=== PATIENT | female | born 1955 | race African-American/Black ===

== ENCOUNTER → 2018-09-24 | Day surgery (SDC) | payer OTHER, MEDICARE ==
[2018-09-23 17:50] VITALS: BMI 16.1
[2018-09-24 12:03] LABS: HEMATOCRIT 34.2 % (32.4-45.2); HEMOGLOBIN 10.6 GM/dL (10.7-15.3); MCH 25.1 pg (25.7-33.7); MEAN CELL VOLUME 80.7 fl (80-96); RBC 4.24 M/mm3 (3.60-5.2); WHITE BLOOD COUNT 4.6 K/mm3 (4.0-10.0)
[2018-09-24 12:04] LABS: BASO % 1.1 % (0-2.0); EOS % 2.6 % (0-4.5); LYMPH % 27.8 % (8-40); MCHC 31.1 g/dl (32.0-36.0); MEAN PLT VOLUME 7.9 fl (7.5-11.1); MONO % 13.2 % (3.8-10.2); NEUT % 55.3 % (42.8-82.8); PLATELET COUNT 326 K/MM3 (134-434); RDW 17.7 % (11.6-15.6)
[2018-09-24 12:15] LABS: INR 1.12 (0.83-1.09); PROTHROMBIN TIME (PATIENT) 13.2 SEC (9.7-13.0)
== END | disposition home or self-care (01) ==
LOC: JRADIR 11:13
PROVIDERS: ATTEND Urology
PROC: 3E013GC Introduction of Other Therapeutic Substance into Subcutaneous Tissue, Percutaneous Approach (ICD-10-PCS; principal; 2018-09-24)
DX: Z53.8 Procedure and treatment not carried out for other reasons (principal)
CPT/HCPCS: 36415; 85025; 85610

== ENCOUNTER 2019-01-03 09:10 | Day surgery (SDC) | payer OTHER, MEDICARE ==
[2019-01-02 12:22] VITALS: BMI 22.7
[2019-01-03 09:57] LABS: HEMATOCRIT 33.6 % (32.4-45.2); HEMOGLOBIN 10.9 GM/dL (10.7-15.3); MCH 26.7 pg (25.7-33.7); MCHC 32.5 g/dl (32.0-36.0); MEAN CELL VOLUME 81.9 fl (80-96); PLATELET COUNT 357 K/MM3 (134-434); RDW 18.2 % (11.6-15.6); WHITE BLOOD COUNT 4.5 K/mm3 (4.0-10.0)
[2019-01-03 10:18] LABS: INR 1.05 (0.83-1.09); PROTHROMBIN TIME (PATIENT) 12.4 SEC (9.7-13.0)
[2019-01-03 10:21] LABS: ACTIVATED PTT 33.4 SECONDS (25.2-36.5)
[2019-01-03 10:49] VITALS: TEMP 98.3
[2019-01-03 10:50] LABS: ALBUMIN 2.8 g/dl (3.4-5.0); ALK PHOS 93 U/L (45-117); ANION GAP 8 MMOL/L (8-16); BILIRUBIN,TOTAL 0.3 mg/dL (0.2-1); BLOOD UREA NITROGEN 11 mg/dL (7-18); CALCIUM 9.3 mg/dL (8.5-10.1); CHLORIDE 109 mmol/L (98-107); CO2 23 mmol/L (21-32); CREATININE 0.4 mg/dL (0.55-1.3); GLUCOSE,RANDOM 87 mg/dL (74-106); POTASSIUM 3.8 mmol/L (3.5-5.1); SGOT/AST 15 U/L (15-37); SGPT/ALT 12 U/L (13-61); SODIUM 141 mmol/L (136-145); TOT PROT 8.3 g/dl (6.4-8.2)
[2019-01-03 16:31] VITALS: BP 126/83; PULSE 100
== END 2019-01-03 16:30 | disposition home or self-care (01) ==
LOC: JRADIR 09:10
PROVIDERS: ATTEND Urology
PROC: 0T9430Z Drainage of Left Kidney Pelvis with Drainage Device, Percutaneous Approach (ICD-10-PCS; principal; 2019-01-03)
DX: N13.30 Unspecified hydronephrosis (principal)
CPT/HCPCS: 36415; 50432; 76000-TC-FY; 76098-TC-FY; 76998-TC; 80053; 85027; 85610; 85730; 87070; 87075; 87076; 87186; 87205; 87899; A4358; C1729; C1769

== ENCOUNTER 2019-06-09 17:33 | Inpatient (IN) | payer OTHER, MEDICARE ==
[2019-06-09] MEDS ORDERED: SODIUM CHLORIDE 0.9% 1000 ML INFUS.BAG IV ONE (19:44)
--- NOTE | 2019-06-09 19:54 | PDOC ---
History of Present Illness - General Chief Complaint: Pain Stated Complaint: ABDOMINAL PAIN Time Seen by Provider: 06/09/19 19:38 History Source: Patient Exam Limitations: No Limitations - History of Present Illness Initial Comments: 06/09/19 19:48 63F with a PMH of MS, suprapubic catheter, and nephrostomy tube placement (2018) who presents to the ER with abdominal pain and leakage from nephrostomy tube site. The patient is with her daughter who helps provide the history. The daughter states that the patient has had abdominal pain since yesterday around her suprapubic catheter. She has also had drainage around her nephrostomy tube which was dislodged yesterday and the drainage started yesterday and "is flowing ". She denies fever, chills, nausea, vomiting, CP, SOB. Past History - Past Medical History Allergies/Adverse Reactions: Allergies Allergy/AdvReac Type Severity Reaction Status Date / Time No Known Allergies Allergy Unverified 06/09/19 19:50 Home Medications: Ambulatory Orders Baclofen 20 mg PO DAILY tablet 09/15/14 Divalproex [Depakote -] 500 mg PO DAILY 09/23/18 Lisinopril [Zestril] 2.5 mg PO DAILY 09/23/18 COPD: No HTN: Yes Seizures: Yes (LAST- LONG AGO) - Surgical History Cardiac Surgery: Yes (cardiac stents) Orthopedic Surgery: Yes (SHOULDER SX) - Suicide/Smoking/Psychosocial Hx Smoking History: Never smoked Have you smoked in the past 12 months: No Information on smoking cessation initiated: No Hx Alcohol Use: No Drug/Substance Use Hx: No Substance Use Type: None Review of Systems - Review of Systems Able to Perform ROS?: Yes Comments:: 06/09/19 19:54 GENERAL/CONSTITUTIONAL: No fever or chills. No weakness. HEAD, EYES, EARS, NOSE AND THROAT: No change in vision. No ear pain or discharge. No sore throat. CARDIOVASCULAR: No chest pain, palpitations, or lightheadedness. RESPIRATORY: No cough, wheezing, shortness of breath, or hemoptysis. GASTROINTESTINAL: No abdominal pain, nausea, vomiting, diarrhea, or constipation. GENITOURINARY: + for pain around suprapubic cath and drainage from nephrostomy tube. MUSCULOSKELETAL: No joint or muscle swelling or pain. No neck or back pain. SKIN: No rash or lesions. NEUROLOGIC: No headache, numbness, tingling, focal weakness, loss of consciousness, or change in strength/sensation. Is the patient limited Maltese proficient: No *Physical Exam - Vital Signs Last Vital Signs Temp Pulse Resp BP Pulse Ox 98.5 F 111 H 18 97/72 98 06/09/19 19:35 06/09/19 19:35 06/09/19 19:35 06/09/19 19:35 06/09/19 19:35 - Physical Exam Comments: 06/09/19 19:54 GENERAL: Well developed, well nourished. Awake and alert. No acute distress. HEENT: Normocephalic, atraumatic. Hearing grossly normal. Dry mucous membranes. PERRLA, EOMI. No conjunctival pallor. Sclera are non-icteric. NECK: Supple. Full ROM. No JVD. Carotid pulses 2+ and symmetric, without bruits. No thyromegaly. No lymphadenopathy. CARDIOVASCULAR: Regular rate and rhythm. No murmurs, rubs, or gallops. PULMONARY: No evidence of respiratory distress. Lungs clear to auscultation bilaterally. No wheezing, rales or rhonchi. ABDOMINAL: Soft. Non-tender. Non-distended. No rebound or guarding. No organomegaly. Normoactive bowel sounds. GENITOURINARY: Draining pus from site of L nephrostomy tube. Suprapubic catheter coming out of urethra. MUSCULOSKELETAL: Contracted diffusely. EXTREMITIES: No cyanosis. No clubbing. No edema. No calf tenderness or swelling. SKIN: Warm and dry. Normal capillary refill. No rashes. No jaundice. NEUROLOGICAL: Alert, awake, appropriate. Cranial nerves 2-12 intact. Normal speech. Gait is normal without ataxia. PSYCHIATRIC: Cooperative. Good eye contact. Appropriate mood and affect. ED Treatment Course - LABORATORY CBC & Chemistry Diagram: 06/09/19 21:25 06/09/19 19:38 - RADIOLOGY Radiology Studies Ordered: Category Date Time Status ABDOMEN & PELVIS CT W/O CONTR [CT] Stat CT Scan 06/09/19 19:44 Ordered Medical Decision Making - Medical Decision Making 06/09/19 21:37 63F with a PMH of MS, suprapubic cath, and L nephrostomy tube presents with draining pus from site of L nephrostomy tube. D/w Dr. Eller, pt's urologist, who agrees with correcting the suprapubic catheter and admission for abx. Purulent and malodorous pus noted draining from L nephrostomy tube site. Cultures sent. Septic workup in progress. Giving fluids and broad spectrum abx. 06/09/19 23:33 WBC 19. CBC otherwise WNL for patient. CMP shows BUN of 60. Pt getting hydration IV and abx. Pt endorsed to Dr. Frias for admission. *DC/Admit/Observation/Transfer Diagnosis at time of Disposition: Nephrostomy tube displaced Suprapubic catheter dysfunction Qualifiers: Encounter type: initial encounter Qualified Code(s): T83.010A - Breakdown ( mechanical) of cystostomy catheter, initial encounter - Discharge Dispostion Condition at time of disposition: Guarded Decision to Admit order: Yes - Referrals Referrals: Rudolph Eller MD [Primary Care Provider] - - Patient Instructions - Post Discharge Activity
[2019-06-09] MEDS ORDERED: PIPERACILLIN/TAZOB 4.5 GM 4.5 GM in DEXTROSE 5%-WATER 100 ML IVPB ONE (21:39)
[2019-06-09] MEDS ORDERED: VANCOMYCIN 1,000 MG in DEXTROSE 5%-WATER - 250 ML IVPB ONE (21:39)
[2019-06-09] MEDS ORDERED: PIPERACILLIN/TAZOB 4.5 GM 4.5 GM/100 ML BAG IVPB ONE (21:44)
[2019-06-09] MEDS ORDERED: VANCOMYCIN 1 GRAM (PRE-DOCKED) 1,000 MG/250 ML BAG IVPB ONE (21:45)
[2019-06-09 21:58] LABS: BASO % 0.4 % (0-2.0); HEMOGLOBIN 9.5 GM/dL (10.7-15.3); LYMPH % 1.8 % (8-40); MCH 22.4 pg (25.7-33.7); MCHC 31.6 g/dl (32.0-36.0); MEAN CELL VOLUME 70.7 fl (80-96); MEAN PLT VOLUME 8.2 fl (7.5-11.1); MONO % 11.8 % (3.8-10.2); PLATELET COUNT 529 K/MM3 (134-434); RBC 4.24 M/mm3 (3.60-5.2); VENOUS PC02 28.7 mmHg (41-51); VENOUS PH 7.41 (7.31-7.41); VENOUS PO2 43.5 mmHg (30-40)
[2019-06-09] MEDS ORDERED: ACETAMINOPHEN 1000 MG/100 ML VIAL (NON FORMULARY) IVPB ONE (21:58)
[2019-06-09] MEDS ORDERED: ACETAMINOPHEN INJECTION 100 ML IVPB ONE (22:01)
[2019-06-09 22:14] LABS: ALK PHOS 139 U/L (45-117); ANION GAP 17 MMOL/L (8-16); BILIRUBIN,TOTAL 0.8 mg/dL (0.2-1); BLOOD UREA NITROGEN 61.7 mg/dL (7-18); CALCIUM 8.6 mg/dL (8.5-10.1); CHLORIDE 101 mmol/L (98-107); CO2 19 mmol/L (21-32); CREATININE 0.9 mg/dL (0.55-1.3); GLUCOSE,RANDOM 88 mg/dL (74-106); POTASSIUM 3.6 mmol/L (3.5-5.1); SGOT/AST 8 U/L (15-37); SGPT/ALT 7 U/L (13-61); SODIUM 136 mmol/L (136-145); TOT PROT 7.4 g/dl (6.4-8.2)
--- NOTE | 2019-06-09 22:23 | PDOC ---
Documentation entered by Ashish Albarado SCRIBE, acting as scribe for Earline Roman MD. Earline Roman MD: This documentation has been prepared by the Verena marshall Xhesika, SCRIBE, under my direction and personally reviewed by me in its entirety. I confirm that the documentation accurately reflects all work, treatment, procedures, and medical decision making performed by me. Attending Attestation - Resident Resident Name: Herbie Simms - HPI HPI: 06/09/19 20:24 The patient is a 63 year old female with a significant medical history of HTN, MS, suprapubic catheter, and nephrostomy tube placement (12/2018) who present to the ED with 1 day of abdominal pain associated with leakage from L nephrostomy tube site. As per daughter, the patients nephrostomy tube came out yesterday and is draining around the area. The patient is nonverbal. The patient denies chest pain, shortness of breath, headache and dizziness. Denies fever, chills, nausea, vomit, diarrhea and constipation. Denies dysuria, frequency, urgency and hematuria. Allergies: NKA Past surgical history: cardiac stents, Shoulder surgery PCP: Rudolph Bhatt - Physicial Exam PE: 06/09/19 20:33 GENERAL: Cachetic, frail appearing 63 yo female (+) nonverbal HEAD: No signs of trauma EYES: PERRLA, EOMI, sclera anicteric, conjunctiva clear ENT: ++ ry mucus membranes NECK: pt 's head is chronically turned towards her left side LUNGS: Breath sounds equal, clear to auscultation bilaterally. No wheezes, and no crackles HEART: Regular rate and rhythm, normal S1 and S2, no murmurs, rubs or gallops ABDOMEN: (+) suprapubic catheter has purulence (+) balloon suprapubic catheter is extruding from her urethra. (+) L flank nephrostomy opening with yellow, foul smelling pus. Flat abdomen. Soft, nontender, normoactive bowel sounds. No guarding, no rebound. No masses Normal Rectal tone (+) vaginal vault intact. EXTREMITIES: (+) legs contracted and right arm contracted NEUROLOGICAL: alert but nonverbal and nonambulatory SKIN: Warm, Dry 06/09/19 22:19 - Medical Decision Making 06/09/19 20:46 case discussed with the patient's urologist, Dr. Jonathan Eller and the plan is to admit the patient, give IV antibiotics. The nephrostomy tube replaced by interventional radiologist tomorrow. The patient suprapubic catheter will be deflated and pulled back into the bladder and then reinflated Patient will be admitted to [facility] impression : 63-year-old female with advanced multiple sclerosis who is nonverbal and nonambulatory presents with purulence coming from her nephrostomy site and a displaced suprapubic catheter. sepsis workup was initiated and IV antibiotics given 06/09/19 22:23 pt to be admitted to [facility]/surg
[2019-06-09 22:26] LABS: INR 1.39 (0.83-1.09); PROTHROMBIN TIME (PATIENT) 16.4 SEC (9.7-13.0)
[2019-06-09 23:40] LABS: ANISOCYTOSIS 1+
[2019-06-10] MEDS ORDERED: VANCOMYCIN 1 GRAM (PRE-DOCKED) 1,000 MG/250 ML BAG IVPB SCH (03:00)
[2019-06-10] MEDS: DEXTROSE 5%-0.45% SALINE 1,000 ML IV SCH ×2 (03:22→07:01)
[2019-06-10 03:30] LABS: ACTIVATED PTT 29.8 SECONDS (25.2-36.5)
[2019-06-10 03:37] LABS: INR 1.41 (0.83-1.09); PROTHROMBIN TIME (PATIENT) 16.7 SEC (9.7-13.0)
[2019-06-10 06:34] LABS: PLATELET ESTIMATE ADEQUATE
[2019-06-10 07:50] LABS: HEMATOCRIT 27.4 % (32.4-45.2); HEMOGLOBIN 8.5 GM/dL (10.7-15.3); MCH 22.1 pg (25.7-33.7); MEAN CELL VOLUME 71.2 fl (80-96); MEAN PLT VOLUME 7.9 fl (7.5-11.1); RBC 3.84 M/mm3 (3.60-5.2); WHITE BLOOD COUNT 19.2 K/mm3 (4.0-10.0)
[2019-06-10 08:42] LABS: ALBUMIN 1.9 g/dl (3.4-5.0); ALK PHOS 113 U/L (45-117); ANION GAP 12 MMOL/L (8-16); BILIRUBIN,TOTAL 0.6 mg/dL (0.2-1); BLOOD UREA NITROGEN 56.3 mg/dL (7-18); CALCIUM 8.2 mg/dL (8.5-10.1); CHLORIDE 103 mmol/L (98-107); CO2 18 mmol/L (21-32); GLUCOSE,RANDOM 191 mg/dL (74-106); SGOT/AST 5 U/L (15-37); SGPT/ALT < 6 U/L (13-61); SODIUM 133 mmol/L (136-145); TOT PROT 6.4 g/dl (6.4-8.2)
[2019-06-10 08:43] LABS: CREATININE 0.8 mg/dL (0.55-1.3)
[2019-06-10 08:59] LABS: POTASSIUM 2.9 mmol/L (3.5-5.1)
[2019-06-10 09:16] LABS: PLATELET COUNT 443 K/MM3 (134-434)
[2019-06-10] MEDS ORDERED: PIPERACILLIN/TAZOB 3.375 GM 3.375 GM in DEXTROSE 5%-WATER - 50 ML IVPB SCH (10:00)
--- NOTE | 2019-06-10 10:49 | CONSULT ---
Consult Consult Specialty:: UROLOGY Reason for Consultation:: Displaced left nephrostomy and SPC tube. - History of Present Illness Chief Complaint: 63 Y/O Female patient with history of neurogenic bladder and left proximal ureteric stone , her left nephrostomy tube inserted 12/2018 fall off 2days ago. SPC was not draining well. O/E displaced SPC and replaced with [address] scan left proximal ureteric stone 2 cm with hydronephrosis. - Alcohol/Substance Use Hx Alcohol Use: No - Smoking History Smoking history: Never smoked Have you smoked in the past 12 months: No Home Medications - Allergies Allergies/Adverse Reactions: Allergies Allergy/AdvReac Type Severity Reaction Status Date / Time No Known Allergies Allergy Unverified 06/09/19 19:50 - Home Medications Home Medications: Ambulatory Orders Baclofen 20 mg PO DAILY tablet 09/15/14 Divalproex [Depakote -] 500 mg PO DAILY 09/23/18 Lisinopril [Zestril] 2.5 mg PO DAILY 09/23/18 Physical Exam Vital Signs: Vital Signs Temperature 97.5 F L 06/10/19 04:20 Pulse Rate 96 H 06/10/19 04:20 Respiratory Rate 18 06/10/19 04:20 Blood Pressure 109/71 06/10/19 04:20 O2 Sat by Pulse Oximetry (%) 98 06/10/19 07:00 Labs: CBC, BMP 06/10/19 06:20 06/10/19 06:20 Assessment/Plan NB on SPC Left hydronephrosis and proximal ureteric stone. SPC replaced today. Plan: Dr Yadav for Left nephrostomy tube insertion.
[2019-06-10 11:58] LABS: ANISOCYTOSIS 2+; MACROCYTOSIS 0; PLATELET ESTIMATE NORMAL; TARGET CELLS 1+; TEAR DROP CELLS 1+
[2019-06-10] MEDS ORDERED: PT OWN MED DRAWER 7, Y5N ONE (12:11)
[2019-06-10] MEDS ORDERED: PIPERACILLIN/TAZOBACTAM 3.375 GM VIAL IVPB ONE ×2 (12:11→17:39)
[2019-06-10] MEDS ORDERED: DEXTROSE 5%-WATER - 50 ML IVPB ONE ×2 (12:12→17:39)
[2019-06-10] MEDS: BACLOFEN 10 MG TABLET (FP) PO SCH (12:16)
[2019-06-10] MEDS: DIVALPROEX SODIUM 500 MG TABLET E.C. PO SCH (12:16)
[2019-06-10] MEDS: LISINOPRIL 5 MG TABLET (FP) PO SCH (12:17)
[2019-06-10] MEDS: HEPARIN NA (PORCINE) 5,000 UNITS/ML 1ML VIAL SQ SCH ×2 (12:20→22:03)
[2019-06-10] MEDS: KCL 10 MEQ IVPB 10 MEQ/100 ML INFUS.BAG IVPB SCH ×4 (12:38→15:13)
--- NOTE | 2019-06-10 12:56 | CON.ID ---
Consult Consult Specialty:: infectious diseases Referred by:: Reason for Consultation:: bacteremia, - History of Present Illness Chief Complaint: weakness,leakage fron nephrostomy tube History of Present Illness: 63 year old female with a significant medical history of HTN, MS, suprapubic catheter, and nephrostomy tube placement (12/2018) admitted with 1 day of abdominal pain associated with leakage from L nephrostomy tube site. As per daughter, the patients nephrostomy tube came out yesterday and is draining around the area. The patient is nonverbal. history of neurogenic bladder and left proximal ureteric stone , her left nephrostomy tube inserted 12/2018 fall off 2days ago. SPC was not draining well. O/E displaced SPC and replaced with [address] scan left proximal ureteric stone 2 cm with hydronephrosis. The patient denies chest pain, shortness of breath, headache and dizziness. Denies fever, chills, nausea, vomit, diarrhea and constipation. Denies dysuria, frequency, urgency and hematuria. currently patient is stable - History Source History Provided By: Medical Record Limitations to Obtaining History: Clinical Condition - Alcohol/Substance Use Hx Alcohol Use: No - Smoking History Smoking history: Never smoked Have you smoked in the past 12 months: No Home Medications - Allergies Allergies/Adverse Reactions: Allergies Allergy/AdvReac Type Severity Reaction Status Date / Time No Known Allergies Allergy Unverified 06/09/19 19:50 - Home Medications Home Medications: Ambulatory Orders Baclofen 20 mg PO DAILY tablet 09/15/14 Divalproex [Depakote -] 500 mg PO DAILY 09/23/18 Lisinopril [Zestril] 2.5 mg PO DAILY 09/23/18 Review of Systems - Review of Systems Constitutional: reports: No Symptoms Neck: reports: No Symptoms Cardiovascular: reports: No Symptoms Respiratory: reports: No Symptoms Gastrointestinal: reports: Abdominal Pain Genitourinary: reports: Other Musculoskeletal: reports: No Symptoms Integumentary: reports: No Symptoms Neurological: reports: No Symptoms Endocrine: reports: No Symptoms Hematology/Lymphatic: reports: No Symptoms Psychiatric: reports: No Symptoms Physical Exam Vital Signs: Vital Signs Temperature 97.5 F L 06/10/19 04:20 Pulse Rate 96 H 06/10/19 04:20 Respiratory Rate 18 06/10/19 04:20 Blood Pressure 109/71 06/10/19 04:20 O2 Sat by Pulse Oximetry (%) 98 06/10/19 07:00 Constitutional: Yes: No Distress, Calm Cardiovascular: Yes: Regular Rate and Rhythm Respiratory: Yes: Regular, CTA Bilaterally Gastrointestinal: Yes: Normal Bowel Sounds, Soft Musculoskeletal: Yes: WNL Extremities: Yes: Other Neurological: Yes: Alert, Other Labs: CBC, BMP 06/10/19 06:20 06/10/19 06:20 Imaging - Results Chest X-ray: Report Reviewed, Image Reviewed Assessment/Plan 63-year-old female with advanced multiple sclerosis who is nonverbal and nonambulatory presents with purulence coming from her nephrostomy site and a displaced suprapubic catheter. uti weakness plan will start on zosyn nutrition rest as per team
--- NOTE | 2019-06-10 14:42 | EKG ---
Test Reason : Blood Pressure : / mmHG Vent. Rate : 108 BPM Atrial Rate : 108 BPM P-R Int : 136 ms QRS Dur : 072 ms QT Int : 402 ms P-R-T Axes : 073 061 074 degrees QTc Int : 538 ms SINUS TACHYCARDIA POSSIBLE LEFT ATRIAL ENLARGEMENT CANNOT RULE OUT INFERIOR INFARCT , AGE UNDETERMINED PROLONGED QT ABNORMAL ECG NO PREVIOUS ECGS AVAILABLE Confirmed by Kristopher Menjivar MD ([id number]) on 06/10/2019 2:42:19 PM Referred By: Confirmed By:Kristopher Menjivar MD
--- NOTE | 2019-06-10 17:02 | HP ---
Admitting History and Physical - Admission History of Present Illness: Pt is a 63 y/o female with a PMH of MS, suprapubic catheter, and nephrostomy tube placement (12/2018) who presents to the ER with abdominal pain and leakage from nephrostomy tube site. The patient is with her daughter who helps provide the history. The daughter states that the patient has had abdominal pain since yesterday around her suprapubic catheter. She has also had drainage around her nephrostomy tube which was dislodged yesterday and the drainage started yesterday and "is flowing". She denies fever, chills, nausea, vomiting, CP, SOB. - Past Medical History CARD CHECKER: Yes: Multiple Sclerosis - Advance Directives Advance Directives: Yes: Health Care Proxy - Smoking History Smoking history: Never smoked Have you smoked in the past 12 months: No - Alcohol/Substance Use Hx Alcohol Use: No Home Medications - Allergies Allergies/Adverse Reactions: Allergies Allergy/AdvReac Type Severity Reaction Status Date / Time No Known Allergies Allergy Unverified 06/09/19 19:50 - Home Medications Home Medications: Ambulatory Orders Baclofen 20 mg PO DAILY tablet 09/15/14 Divalproex [Depakote -] 500 mg PO DAILY 09/23/18 Lisinopril [Zestril] 2.5 mg PO DAILY 09/23/18 Family Disease History - Family Disease History Family History: Unremarkable Review of Systems - Review of Systems Constitutional: reports: Weakness Eyes: reports: No Symptoms HENT: reports: No Symptoms Neck: reports: No Symptoms Cardiovascular: reports: No Symptoms Respiratory: reports: No Symptoms Gastrointestinal: reports: No Symptoms Physical Examination Vital Signs: Vital Signs Temperature 98.3 F 06/10/19 08:55 Pulse Rate 96 H 06/10/19 16:55 Respiratory Rate 15 06/10/19 16:55 Blood Pressure 123/75 06/10/19 16:55 O2 Sat by Pulse Oximetry (%) 100 06/10/19 16:55 Constitutional: Yes: Thin Eyes: Yes: WNL, Conjunctiva Clear HENT: Yes: WNL Neck: Yes: WNL, Supple Cardiovascular: Yes: WNL, Regular Rate and Rhythm Respiratory: Yes: WNL, Regular, CTA Bilaterally Gastrointestinal: Yes: WNL, Normal Bowel Sounds, Soft Renal/: Yes: Other ((+) SPC/Lt nephrostomy tube) Edema: No Neurological: Yes: WNL, Alert, Oriented Labs: CBC, BMP 06/10/19 06:20 06/10/19 06:20 Problem List - Problems (1) Sepsis Assessment/Plan: Cont IV antibxs Monitor BC/urine cuoltures IVF ID consult Code(s): A41.9 - SEPSIS, UNSPECIFIED ORGANISM (2) Multiple sclerosis Code(s): G35 - MULTIPLE SCLEROSIS (3) Nephrostomy tube displaced Assessment/Plan: Uro consult/IR consults Code(s): T83.022A - DISPLACEMENT OF NEPHROSTOMY CATHETER, INITIAL ENCOUNTER (4) Neurogenic bladder Code(s): N31.9 - NEUROMUSCULAR DYSFUNCTION OF BLADDER, UNSPECIFIED (5) Seizure Assessment/Plan: Cont depakote Code(s): R56.9 - UNSPECIFIED CONVULSIONS (6) Suprapubic catheter dysfunction Code(s): T83.010A - BREAKDOWN (MECHANICAL) OF CYSTOSTOMY CATHETER, INIT ENCNTR Qualifiers: Encounter type: initial encounter Qualified Code(s): T83.010A - Breakdown ( mechanical) of cystostomy catheter, initial encounter
[2019-06-10] MEDS: PIPERACILLIN/TAZOB 3.375 GM 3.375 GM in DEXTROSE 5%-WATER - 50 ML IVPB SCH (18:17)
[2019-06-11] MEDS ORDERED: PIPERACILLIN/TAZOBACTAM 3.375 GM VIAL IVPB ONE ×3 (01:34→17:40)
[2019-06-11] MEDS ORDERED: DEXTROSE 5%-WATER - 50 ML IVPB ONE ×3 (01:35→17:40)
[2019-06-11] MEDS: PIPERACILLIN/TAZOB 3.375 GM 3.375 GM in DEXTROSE 5%-WATER - 50 ML IVPB SCH ×3 (01:45→17:44)
[2019-06-11] MEDS: DEXTROSE 5%-0.45% SALINE 1,000 ML IV SCH (07:19)
[2019-06-11] MEDS: BACLOFEN 10 MG TABLET (FP) PO SCH (10:04)
[2019-06-11] MEDS: HEPARIN NA (PORCINE) 5,000 UNITS/ML 1ML VIAL SQ SCH ×2 (10:04→21:00)
[2019-06-11] MEDS: DIVALPROEX SODIUM 500 MG TABLET E.C. PO SCH (10:04)
[2019-06-11] MEDS: LISINOPRIL 5 MG TABLET (FP) PO SCH (10:04)
--- NOTE | 2019-06-11 12:37 | PN ---
Progress Note, Physician History of Present Illness: stable no new issues - Current Medication List Current Medications: Active Medications Baclofen (Lioresal -) 20 mg PO DAILY [facility] Last Admin: 06/11/19 10:04 Dose: 20 mg Divalproex Sodium (Depakote -) 500 mg PO DAILY [facility] Last Admin: 06/11/19 10:04 Dose: 500 mg Heparin Sodium (Porcine) (Heparin -) 5,000 unit SQ BID [facility] Last Admin: 06/11/19 10:04 Dose: 5,000 unit Dextrose/Sodium Chloride (D5-1/2ns -) 1,000 mls @ 75 mls/hr IV ASDIR [facility] Last Admin: 06/11/19 07:19 Dose: 75 mls/hr Piperacillin Sod/Tazobactam (Sod 3.375 gm/ Dextrose) 50 mls @ 100 mls/hr IVPB Q8H-IV [facility]; Protocol Last Admin: 06/11/19 10:03 Dose: 100 mls/hr Lisinopril (Prinivil) 2.5 mg PO DAILY [facility] Last Admin: 06/11/19 10:04 Dose: 2.5 mg - Objective Vital Signs: Vital Signs Temperature 98 F 06/11/19 04:26 Pulse Rate 68 06/11/19 04:26 Respiratory Rate 18 06/11/19 04:26 Blood Pressure 90/59 L 06/11/19 04:26 O2 Sat by Pulse Oximetry (%) 97 06/10/19 21:00 Constitutional: Yes: No Distress, Calm Cardiovascular: Yes: S1, S2 Respiratory: Yes: Regular, CTA Bilaterally Musculoskeletal: Yes: WNL Extremities: Yes: Other Neurological: Yes: Alert, Oriented Psychiatric: Yes: Alert, Oriented Labs: CBC, BMP 06/10/19 06:20 06/10/19 06:20 INR, PTT INR 1.41 (0.83-1.09) H 06/10/19 02:45 Assessment/Plan 63-year-old female with advanced multiple sclerosis who is nonverbal and nonambulatory presents with purulence coming from her nephrostomy site and a displaced suprapubic catheter. uti weakness plan abx nutrition
[2019-06-11 13:09] LABS: BASO % 0.2 % (0-2.0); EOS % 0.2 % (0-4.5); HEMATOCRIT 24.5 % (32.4-45.2); HEMOGLOBIN 7.5 GM/dL (10.7-15.3); LYMPH % 12.9 % (8-40); MCH 21.6 pg (25.7-33.7); MCHC 30.5 g/dl (32.0-36.0); MEAN CELL VOLUME 70.9 fl (80-96); MEAN PLT VOLUME 7.7 fl (7.5-11.1); MONO % 3.2 % (3.8-10.2); NEUT % 83.5 % (42.8-82.8); PLATELET COUNT 423 K/MM3 (134-434); RBC 3.46 M/mm3 (3.60-5.2); RDW 18.8 % (11.6-15.6); WHITE BLOOD COUNT 18.2 K/mm3 (4.0-10.0)
[2019-06-11 13:46] LABS: ALBUMIN 1.6 g/dl (3.4-5.0); ALK PHOS 99 U/L (45-117); ANION GAP 12 MMOL/L (8-16); BILIRUBIN,TOTAL 0.5 mg/dL (0.2-1); BLOOD UREA NITROGEN 34.6 mg/dL (7-18); CALCIUM 7.9 mg/dL (8.5-10.1); CHLORIDE 109 mmol/L (98-107); CO2 18 mmol/L (21-32); CREATININE 0.6 mg/dL (0.55-1.3); GLUCOSE,RANDOM 112 mg/dL (74-106); POTASSIUM 3.2 mmol/L (3.5-5.1); SGOT/AST 8 U/L (15-37); SGPT/ALT < 6 U/L (13-61); SODIUM 139 mmol/L (136-145); TOT PROT 5.8 g/dl (6.4-8.2)
[2019-06-11 14:08] LABS: ANISOCYTOSIS 1+; MACROCYTOSIS 0; PLATELET ESTIMATE NORMAL; ROULEAU 1+
[2019-06-11] MEDS: KCL 10 MEQ IVPB 10 MEQ/100 ML INFUS.BAG IVPB SCH ×3 (20:58→23:06)
--- NOTE | 2019-06-11 23:55 | PN ---
Progress Note, Physician - Current Medication List Current Medications: Active Medications Baclofen (Lioresal -) 20 mg PO DAILY [facility] Last Admin: 06/11/19 10:04 Dose: 20 mg Divalproex Sodium (Depakote -) 500 mg PO DAILY [facility] Last Admin: 06/11/19 10:04 Dose: 500 mg Heparin Sodium (Porcine) (Heparin -) 5,000 unit SQ BID [facility] Last Admin: 06/11/19 21:00 Dose: 5,000 unit Dextrose/Sodium Chloride (D5-1/2ns -) 1,000 mls @ 75 mls/hr IV ASDIR [facility] Last Admin: 06/11/19 07:19 Dose: 75 mls/hr Piperacillin Sod/Tazobactam (Sod 3.375 gm/ Dextrose) 50 mls @ 100 mls/hr IVPB Q8H-IV [facility]; Protocol Last Admin: 06/11/19 17:44 Dose: 100 mls/hr Lisinopril (Prinivil) 2.5 mg PO DAILY [facility] Last Admin: 06/11/19 10:04 Dose: 2.5 mg - Objective Vital Signs: Vital Signs Temperature 97.2 F L 06/11/19 16:30 Pulse Rate 77 06/11/19 16:30 Respiratory Rate 20 06/11/19 16:30 Blood Pressure 96/59 L 06/11/19 16:30 O2 Sat by Pulse Oximetry (%) 96 06/11/19 21:00 Labs: CBC, BMP 06/11/19 12:57 06/11/19 12:57 INR, PTT INR 1.41 (0.83-1.09) H 06/10/19 02:45 Problem List - Problems (1) Sepsis Assessment/Plan: BC(+) and Urine culture(+) for lactose fermenting gnb Cont IV antibxs Replace K+ Code(s): A41.9 - SEPSIS, UNSPECIFIED ORGANISM (2) Nephrostomy tube displaced Assessment/Plan: SPC reinserted As per uro IR to replace Lt nephrostomy tube due to Lt hydronephrosis/ureteric stone Code(s): T83.022A - DISPLACEMENT OF NEPHROSTOMY CATHETER, INITIAL ENCOUNTER (3) Seizure Assessment/Plan: Cont depakote Code(s): R56.9 - UNSPECIFIED CONVULSIONS (4) Multiple sclerosis Code(s): G35 - MULTIPLE SCLEROSIS (5) HTN (hypertension) Assessment/Plan: Hold lisinopril due to hypotension Due to sepsis Cont IVF Code(s): I10 - ESSENTIAL (PRIMARY) HYPERTENSION (6) Neurogenic bladder Code(s): N31.9 - NEUROMUSCULAR DYSFUNCTION OF BLADDER, UNSPECIFIED
[2019-06-12] MEDS ORDERED: PIPERACILLIN/TAZOBACTAM 3.375 GM VIAL IVPB ONE ×3 (00:34→18:15)
[2019-06-12] MEDS ORDERED: DEXTROSE 5%-WATER - 50 ML IVPB ONE ×3 (00:35→18:15)
[2019-06-12] MEDS: PIPERACILLIN/TAZOB 3.375 GM 3.375 GM in DEXTROSE 5%-WATER - 50 ML IVPB SCH ×3 (01:35→18:31)
[2019-06-12] MEDS: DEXTROSE 5%-0.45% SALINE 1,000 ML IV SCH ×2 (01:39→09:16)
[2019-06-12 08:52] LABS: HEMATOCRIT 23.9 % (32.4-45.2); HEMOGLOBIN 7.3 GM/dL (10.7-15.3); MCH 21.9 pg (25.7-33.7); MCHC 30.4 g/dl (32.0-36.0); MEAN CELL VOLUME 72.1 fl (80-96); MEAN PLT VOLUME 7.9 fl (7.5-11.1); PLATELET COUNT 432 K/MM3 (134-434); RBC 3.32 M/mm3 (3.60-5.2); RDW 18.9 % (11.6-15.6); WHITE BLOOD COUNT 12.3 K/mm3 (4.0-10.0)
[2019-06-12 09:20] LABS: ALBUMIN 1.6 g/dl (3.4-5.0); BILIRUBIN,TOTAL 0.5 mg/dL (0.2-1); BLOOD UREA NITROGEN 21.5 mg/dL (7-18); CREATININE 0.4 mg/dL (0.55-1.3); TOT PROT 5.8 g/dl (6.4-8.2)
[2019-06-12 09:55] LABS: ANISOCYTOSIS 2+; MACROCYTOSIS 0; PLATELET ESTIMATE NORMAL; TARGET CELLS 1+
[2019-06-12] MEDS: BACLOFEN 10 MG TABLET (FP) PO SCH (11:26)
[2019-06-12] MEDS: DIVALPROEX SODIUM 500 MG TABLET E.C. PO SCH (11:26)
[2019-06-12] MEDS: HEPARIN NA (PORCINE) 5,000 UNITS/ML 1ML VIAL SQ SCH ×2 (11:26→21:24)
--- NOTE | 2019-06-12 12:50 | PN ---
Progress Note, Physician History of Present Illness: patient says she does not feel very well blood cx results noted - Current Medication List Current Medications: Active Medications Baclofen (Lioresal -) 20 mg PO DAILY [facility] Last Admin: 06/12/19 11:26 Dose: 20 mg Divalproex Sodium (Depakote -) 500 mg PO DAILY [facility] Last Admin: 06/12/19 11:26 Dose: 500 mg Heparin Sodium (Porcine) (Heparin -) 5,000 unit SQ BID [facility] Last Admin: 06/12/19 11:26 Dose: 5,000 unit Dextrose/Sodium Chloride (D5-1/2ns -) 1,000 mls @ 75 mls/hr IV ASDIR [facility] Last Admin: 06/12/19 09:16 Dose: Not Given Piperacillin Sod/Tazobactam (Sod 3.375 gm/ Dextrose) 50 mls @ 100 mls/hr IVPB Q8H-IV [facility]; Protocol Last Admin: 06/12/19 01:35 Dose: 100 mls/hr - Objective Vital Signs: Vital Signs Temperature 98.0 F 06/12/19 05:55 Pulse Rate 87 06/12/19 05:55 Respiratory Rate 20 06/12/19 05:55 Blood Pressure 127/75 06/12/19 05:55 O2 Sat by Pulse Oximetry (%) 96 06/11/19 21:00 Constitutional: Yes: Calm, Mild Distress, Thin Cardiovascular: Yes: S1, S2 Respiratory: Yes: Regular, CTA Bilaterally Gastrointestinal: Yes: Normal Bowel Sounds, Soft Extremities: Yes: Other Neurological: Yes: Alert, Oriented Psychiatric: Yes: Alert, Oriented Labs: CBC, BMP 06/12/19 08:36 06/12/19 08:36 INR, PTT INR 1.41 (0.83-1.09) H 06/10/19 02:45 Assessment/Plan 63-year-old female with advanced multiple sclerosis who is nonverbal and nonambulatory presents with purulence coming from her nephrostomy site and a displaced suprapubic catheter. uti weakness plan abx nutrition will resend blood cx rest as per the team
--- NOTE | 2019-06-12 15:22 | EKG ---
Test Reason : Blood Pressure : / mmHG Vent. Rate : 092 BPM Atrial Rate : 092 BPM P-R Int : 150 ms QRS Dur : 088 ms QT Int : 400 ms P-R-T Axes : 061 048 249 degrees QTc Int : 494 ms NORMAL SINUS RHYTHM INFERIOR-POSTERIOR INFARCT (CITED ON OR BEFORE 09-JUN-2019) T WAVE ABNORMALITY, CONSIDER LATERAL ISCHEMIA ABNORMAL ECG WHEN COMPARED WITH ECG OF 09-JUN-2019 21:43, ST NO LONGER DEPRESSED IN INFERIOR LEADS T WAVE INVERSION NOW EVIDENT IN INFERIOR LEADS T WAVE INVERSION NOW EVIDENT IN ANTEROLATERAL LEADS Confirmed by ANNIKA PELLETIER MD ([id number]) on 06/12/2019 3:22:21 PM Referred By: Confirmed By:ANNIKA PELLETIER MD
[2019-06-12 17:31] VITALS: BMI 12.3
--- NOTE | 2019-06-12 22:39 | PN ---
Progress Note, Physician History of Present Illness: No new complaints - Current Medication List Current Medications: Active Medications Baclofen (Lioresal -) 20 mg PO DAILY [facility] Last Admin: 06/12/19 11:26 Dose: 20 mg Heparin Sodium (Porcine) (Heparin -) 5,000 unit SQ BID [facility] Last Admin: 06/12/19 21:24 Dose: 5,000 unit Dextrose/Sodium Chloride (D5-1/2ns -) 1,000 mls @ 75 mls/hr IV [facility]IR [facility] Last Admin: 06/12/19 09:16 Dose: Not Given Piperacillin Sod/Tazobactam (Sod 3.375 gm/ Dextrose) 50 mls @ 100 mls/hr IVPB Q8H-IV [facility]; Protocol Last Admin: 06/12/19 18:31 Dose: 100 mls/hr Valproate Sodium (Depakene -) 500 mg PO DAILY [facility] - Objective Vital Signs: Vital Signs Temperature 98.3 F 06/12/19 18:48 Pulse Rate 85 06/12/19 19:29 Respiratory Rate 18 06/12/19 19:29 Blood Pressure 94/58 L 06/12/19 19:29 O2 Sat by Pulse Oximetry (%) 96 06/12/19 09:00 Neck: Yes: WNL, Supple Cardiovascular: Yes: WNL, Regular Rate and Rhythm Respiratory: Yes: WNL, Regular, CTA Bilaterally Gastrointestinal: Yes: WNL, Normal Bowel Sounds, Soft, Other ((+) suprapubic cath) Labs: CBC, BMP 06/12/19 08:36 06/12/19 08:36 INR, PTT INR 1.41 (0.83-1.09) H 06/10/19 02:45 Problem List - Problems (1) Sepsis Assessment/Plan: BC(+) and Urine culture(+) for lactose fermenting gnb Cont IV antibxs Replace K+ Repeat Blood cultures Code(s): A41.9 - SEPSIS, UNSPECIFIED ORGANISM (2) Nephrostomy tube displaced Assessment/Plan: SPC reinserted Replace Lt nephrostomy tube due to Lt hydronephrosis/ureteric stone Code(s): T83.022A - DISPLACEMENT OF NEPHROSTOMY CATHETER, INITIAL ENCOUNTER (3) Seizure Assessment/Plan: Cont depakote Code(s): R56.9 - UNSPECIFIED CONVULSIONS (4) Multiple sclerosis Code(s): G35 - MULTIPLE SCLEROSIS (5) HTN (hypertension) Assessment/Plan: Hold lisinopril due to hypotension Due to sepsis Cont IVF Code(s): I10 - ESSENTIAL (PRIMARY) HYPERTENSION (6) Neurogenic bladder Code(s): N31.9 - NEUROMUSCULAR DYSFUNCTION OF BLADDER, UNSPECIFIED
[2019-06-13] MEDS ORDERED: DEXTROSE 5%-WATER - 50 ML IVPB ONE ×3 (01:11→19:32)
[2019-06-13] MEDS ORDERED: PIPERACILLIN/TAZOBACTAM 3.375 GM VIAL IVPB ONE ×3 (01:11→19:31)
[2019-06-13] MEDS: PIPERACILLIN/TAZOB 3.375 GM 3.375 GM in DEXTROSE 5%-WATER - 50 ML IVPB SCH ×3 (01:37→19:35)
[2019-06-13] MEDS ORDERED: PT OWN MED DRAWER 7, Y5N ONE (09:21)
[2019-06-13] MEDS: BACLOFEN 10 MG TABLET (FP) PO SCH (09:58)
[2019-06-13] MEDS: DEXTROSE 5%-0.45% SALINE 1,000 ML IV SCH (10:01)
[2019-06-13] MEDS: VALPROATE SODIUM 250 MG/5 ML UNIT DOSE CUP PO SCH (10:01)
[2019-06-13] MEDS: HEPARIN NA (PORCINE) 5,000 UNITS/ML 1ML VIAL SQ SCH ×2 (10:01→21:31)
[2019-06-13 15:36] LABS: BASO % 0.2 % (0-2.0); EOS % 0.7 % (0-4.5); HEMATOCRIT 25.3 % (32.4-45.2); HEMOGLOBIN 7.9 GM/dL (10.7-15.3); LYMPH % 8.3 % (8-40); MCH 22.3 pg (25.7-33.7); MCHC 31.2 g/dl (32.0-36.0); MEAN CELL VOLUME 71.6 fl (80-96); MEAN PLT VOLUME 7.5 fl (7.5-11.1); MONO % 5.1 % (3.8-10.2); NEUT % 85.7 % (42.8-82.8); PLATELET COUNT 411 K/MM3 (134-434); RBC 3.54 M/mm3 (3.60-5.2); WHITE BLOOD COUNT 9.8 K/mm3 (4.0-10.0)
[2019-06-13 16:03] LABS: ALBUMIN 1.6 g/dl (3.4-5.0); BILIRUBIN,TOTAL 0.4 mg/dL (0.2-1); BLOOD UREA NITROGEN 12.1 mg/dL (7-18); CALCIUM 7.8 mg/dL (8.5-10.1); CREATININE 0.4 mg/dL (0.55-1.3); POTASSIUM 3.8 mmol/L (3.5-5.1); TOT PROT 5.7 g/dl (6.4-8.2)
[2019-06-13 17:04] LABS: ANISOCYTOSIS 2+; MACROCYTOSIS 1+
[2019-06-13 17:05] LABS: PLATELET ESTIMATE NORMAL
--- NOTE | 2019-06-13 17:14 | PN ---
Progress Note, Physician History of Present Illness: Pt seen and examined, events noted. Lab/imaging results reviewed. Pt is alert and verbally responsive. Daughter at bedside states she is at her baseline status. Currently afebrile, without acute distress. - Current Medication List Current Medications: Active Medications Baclofen (Lioresal -) 20 mg PO DAILY [facility] Last Admin: 06/13/19 09:58 Dose: 20 mg Heparin Sodium (Porcine) (Heparin -) 5,000 unit SQ BID [facility] Last Admin: 06/13/19 10:01 Dose: 5,000 unit Dextrose/Sodium Chloride (D5-1/2ns -) 1,000 mls @ 75 mls/hr IV [facility]IR [facility] Last Admin: 06/13/19 10:01 Dose: Not Given Piperacillin Sod/Tazobactam (Sod 3.375 gm/ Dextrose) 50 mls @ 100 mls/hr IVPB Q8H-IV [facility]; Protocol Last Admin: 06/13/19 09:59 Dose: 100 mls/hr Valproate Sodium (Depakene -) 500 mg PO DAILY [facility] Last Admin: 06/13/19 10:01 Dose: 500 mg - Objective Vital Signs: Vital Signs Temperature 97.9 F 06/13/19 16:03 Pulse Rate 93 H 06/13/19 16:03 Respiratory Rate 18 06/13/19 16:03 Blood Pressure 97/62 06/13/19 16:03 O2 Sat by Pulse Oximetry (%) 96 06/12/19 21:00 Constitutional: Yes: No Distress, Calm Cardiovascular: Yes: Regular Rate and Rhythm Respiratory: Yes: Regular Gastrointestinal: Yes: Normal Bowel Sounds, Soft Genitourinary: Yes: Other (+SPC, b/l nephrostomy, no drainage on Lt) Edema: No Neurological: Yes: Alert Labs: CBC, BMP 06/13/19 14:25 06/13/19 14:25 INR, PTT INR 1.41 (0.83-1.09) H 06/10/19 02:45 Microbiology 06/09/19 21:25 Blood - Peripheral Venous Blood Culture - Final Escherichia Coli Brevibacterium Species 06/09/19 21:30 Blood - Peripheral Venous Blood Culture - Final Non Lactose Fermenting Gnb Staph Hominis Sub Sp Hominis 06/09/19 21:25 Body Fluid - Other Gram Stain - Final 06/09/19 21:25 Body Fluid - Other Body Fluid Culture - Preliminary Escherichia Coli Beta Hem Streptococcus Group F 06/09/19 21:25 Body Fluid - Other Anaerobic Culture - Final NO ANAEROBES WERE ISOLATED Problem List - Problems (1) HTN (hypertension) Code(s): I10 - ESSENTIAL (PRIMARY) HYPERTENSION (2) Multiple sclerosis Code(s): G35 - MULTIPLE SCLEROSIS (3) Nephrostomy tube displaced Code(s): T83.022A - DISPLACEMENT OF NEPHROSTOMY CATHETER, INITIAL ENCOUNTER (4) Neurogenic bladder Code(s): N31.9 - NEUROMUSCULAR DYSFUNCTION OF BLADDER, UNSPECIFIED (5) Sepsis Code(s): A41.9 - SEPSIS, UNSPECIFIED ORGANISM Assessment/Plan Complicated UTI/Bacteremia MS Neurogenic bladder with SPC/enrrique nephrostomy HTN -- continue IV antibiotics -- f/u repeat blood culture results -- wbc trended down/ currently afebrile -- f/u
--- NOTE | 2019-06-13 21:46 | PN ---
Progress Note, Physician History of Present Illness: No new complaints - Current Medication List Current Medications: Active Medications Baclofen (Lioresal -) 20 mg PO DAILY [facility] Last Admin: 06/13/19 09:58 Dose: 20 mg Heparin Sodium (Porcine) (Heparin -) 5,000 unit SQ BID [facility] Last Admin: 06/13/19 21:31 Dose: 5,000 unit Dextrose/Sodium Chloride (D5-1/2ns -) 1,000 mls @ 75 mls/hr IV [facility]IR [facility] Last Admin: 06/13/19 10:01 Dose: Not Given Piperacillin Sod/Tazobactam (Sod 3.375 gm/ Dextrose) 50 mls @ 100 mls/hr IVPB Q8H-IV [facility]; Protocol Last Admin: 06/13/19 19:35 Dose: 100 mls/hr Valproate Sodium (Depakene -) 500 mg PO DAILY [facility] Last Admin: 06/13/19 10:01 Dose: 500 mg - Objective Vital Signs: Vital Signs Temperature 97.9 F 06/13/19 16:03 Pulse Rate 93 H 06/13/19 16:03 Respiratory Rate 18 06/13/19 16:03 Blood Pressure 97/62 06/13/19 16:03 O2 Sat by Pulse Oximetry (%) 96 06/13/19 09:00 Constitutional: Yes: Thin Neck: Yes: WNL, Supple Cardiovascular: Yes: WNL, Regular Rate and Rhythm Respiratory: Yes: WNL, Regular, CTA Bilaterally Gastrointestinal: Yes: WNL, Normal Bowel Sounds, Soft Genitourinary: Yes: Other ((+) SPC/Lt nephrostomy tube) Labs: CBC, BMP 06/13/19 14:25 06/13/19 14:25 INR, PTT INR 1.41 (0.83-1.09) H 06/10/19 02:45 Problem List - Problems (1) Sepsis Assessment/Plan: BC(+) Cont IV antibxs Monitor BC Code(s): A41.9 - SEPSIS, UNSPECIFIED ORGANISM (2) Nephrostomy tube displaced Assessment/Plan: SPC reinserted IR for replacement of nephrostomy tube Code(s): T83.022A - DISPLACEMENT OF NEPHROSTOMY CATHETER, INITIAL ENCOUNTER (3) Seizure Assessment/Plan: Cont depakote Code(s): R56.9 - UNSPECIFIED CONVULSIONS (4) Multiple sclerosis Assessment/Plan: Will need placement in STR Code(s): G35 - MULTIPLE SCLEROSIS (5) HTN (hypertension) Assessment/Plan: Hold lisinopril due to hypotension Due to sepsis Cont IVF Code(s): I10 - ESSENTIAL (PRIMARY) HYPERTENSION (6) Neurogenic bladder Assessment/Plan: SPC in place Code(s): N31.9 - NEUROMUSCULAR DYSFUNCTION OF BLADDER, UNSPECIFIED
[2019-06-14] MEDS ORDERED: PIPERACILLIN/TAZOBACTAM 3.375 GM VIAL IVPB ONE ×3 (00:49→17:03)
[2019-06-14] MEDS ORDERED: DEXTROSE 5%-WATER - 50 ML IVPB ONE ×3 (00:49→17:03)
[2019-06-14] MEDS: PIPERACILLIN/TAZOB 3.375 GM 3.375 GM in DEXTROSE 5%-WATER - 50 ML IVPB SCH ×3 (01:17→17:08)
[2019-06-14] MEDS: DEXTROSE 5%-0.45% SALINE 1,000 ML IV SCH ×2 (05:14→21:30)
[2019-06-14] MEDS ORDERED: PT OWN MED DRAWER 7, Y5N ONE (09:43)
[2019-06-14] MEDS: BACLOFEN 10 MG TABLET (FP) PO SCH (09:47)
[2019-06-14] MEDS: VALPROATE SODIUM 250 MG/5 ML UNIT DOSE CUP PO SCH (09:47)
[2019-06-14] MEDS: HEPARIN NA (PORCINE) 5,000 UNITS/ML 1ML VIAL SQ SCH ×2 (09:49→21:28)
--- NOTE | 2019-06-14 16:28 | PN ---
Progress Note, Physician History of Present Illness: Pt is alert and fully responsive. Remains afebrile, without distress, stating she feels well. - Current Medication List Current Medications: Active Medications Baclofen (Lioresal -) 20 mg PO DAILY [facility] Last Admin: 06/14/19 09:47 Dose: 20 mg Heparin Sodium (Porcine) (Heparin -) 5,000 unit SQ BID [facility] Last Admin: 06/14/19 09:49 Dose: 5,000 unit Dextrose/Sodium Chloride (D5-1/2ns -) 1,000 mls @ 75 mls/hr IV [facility]IR [facility] Last Admin: 06/14/19 05:14 Dose: Not Given Piperacillin Sod/Tazobactam (Sod 3.375 gm/ Dextrose) 50 mls @ 100 mls/hr IVPB Q8H-IV [facility]; Protocol Last Admin: 06/14/19 09:47 Dose: 100 mls/hr Valproate Sodium (Depakene -) 500 mg PO DAILY [facility] Last Admin: 06/14/19 09:47 Dose: 500 mg - Objective Vital Signs: Vital Signs Temperature 99 F 06/14/19 15:33 Pulse Rate 106 H 06/14/19 15:33 Respiratory Rate 18 06/14/19 15:33 Blood Pressure 106/54 L 06/14/19 15:33 O2 Sat by Pulse Oximetry (%) 100 06/13/19 21:00 Constitutional: Yes: No Distress, Calm Cardiovascular: Yes: Regular Rate and Rhythm Respiratory: Yes: Regular Gastrointestinal: Yes: Normal Bowel Sounds, Soft Genitourinary: Yes: Other (+SPC, Lt nephrostomy) Integumentary: Yes: WNL Neurological: Yes: Alert Labs: CBC, BMP 06/13/19 14:25 06/13/19 14:25 INR, PTT INR 1.41 (0.83-1.09) H 06/10/19 02:45 Microbiology 06/09/19 21:25 Body Fluid - Other Gram Stain - Final 06/09/19 21:25 Body Fluid - Other Body Fluid Culture - Final Escherichia Coli Beta Hem Streptococcus Group F 06/09/19 21:25 Body Fluid - Other Anaerobic Culture - Final Bacteroides Uniformis 06/13/19 14:45 Blood - Peripheral Venous Blood Culture - Preliminary NO GROWTH OBTAINED AFTER 24 HOURS, INCUBATION TO CONTINUE FOR 4 DAYS. 06/13/19 14:25 Blood - Peripheral Venous Blood Culture - Preliminary NO GROWTH OBTAINED AFTER 24 HOURS, INCUBATION TO CONTINUE FOR 4 DAYS. 06/09/19 21:25 Blood - Peripheral Venous Blood Culture - Final Escherichia Coli Brevibacterium Species 06/09/19 21:30 Blood - Peripheral Venous Blood Culture - Final Non Lactose Fermenting Gnb Staph Hominis Sub Sp Hominis Problem List - Problems (1) HTN (hypertension) Code(s): I10 - ESSENTIAL (PRIMARY) HYPERTENSION (2) Multiple sclerosis Code(s): G35 - MULTIPLE SCLEROSIS (3) Nephrostomy tube displaced Code(s): T83.022A - DISPLACEMENT OF NEPHROSTOMY CATHETER, INITIAL ENCOUNTER (4) Neurogenic bladder Code(s): N31.9 - NEUROMUSCULAR DYSFUNCTION OF BLADDER, UNSPECIFIED (5) Sepsis Code(s): A41.9 - SEPSIS, UNSPECIFIED ORGANISM Assessment/Plan Complicated UTI/Bacteremia MS Neurogenic bladder with SPC/nephrostomy HTN KATIE resolved -- continue IV antibiotics -- repeat blood culture neg 24hrs -- wbc now normal, pt afebrile -- f/u
--- NOTE | 2019-06-14 19:15 | PN ---
Progress Note, Physician History of Present Illness: No new complaints - Current Medication List Current Medications: Active Medications Baclofen (Lioresal -) 20 mg PO DAILY [facility] Last Admin: 06/14/19 09:47 Dose: 20 mg Heparin Sodium (Porcine) (Heparin -) 5,000 unit SQ BID [facility] Last Admin: 06/14/19 09:49 Dose: 5,000 unit Dextrose/Sodium Chloride (D5-1/2ns -) 1,000 mls @ 75 mls/hr IV [facility]IR [facility] Last Admin: 06/14/19 05:14 Dose: Not Given Piperacillin Sod/Tazobactam (Sod 3.375 gm/ Dextrose) 50 mls @ 100 mls/hr IVPB Q8H-IV [facility]; Protocol Last Admin: 06/14/19 17:08 Dose: 100 mls/hr Valproate Sodium (Depakene -) 500 mg PO DAILY [facility] Last Admin: 06/14/19 09:47 Dose: 500 mg - Objective Vital Signs: Vital Signs Temperature 99 F 06/14/19 15:33 Pulse Rate 106 H 06/14/19 15:33 Respiratory Rate 18 06/14/19 15:33 Blood Pressure 106/54 L 06/14/19 15:33 O2 Sat by Pulse Oximetry (%) 100 06/13/19 21:00 Neck: Yes: WNL, Supple Cardiovascular: Yes: WNL, Regular Rate and Rhythm Respiratory: Yes: WNL, Regular, CTA Bilaterally Gastrointestinal: Yes: WNL, Normal Bowel Sounds, Soft Labs: CBC, BMP 06/13/19 14:25 06/13/19 14:25 INR, PTT INR 1.41 (0.83-1.09) H 06/10/19 02:45 Problem List - Problems (1) Sepsis Assessment/Plan: BC(+) and Urine culture(+) for lactose fermenting gnb Cont IV antibxs Repeat Blood cultures Code(s): A41.9 - SEPSIS, UNSPECIFIED ORGANISM (2) Nephrostomy tube displaced Assessment/Plan: SPC reinserted Replace Lt nephrostomy tube due to Lt hydronephrosis/ureteric stone Code(s): T83.022A - DISPLACEMENT OF NEPHROSTOMY CATHETER, INITIAL ENCOUNTER (3) Seizure Assessment/Plan: Cont depakote Code(s): R56.9 - UNSPECIFIED CONVULSIONS (4) Multiple sclerosis Code(s): G35 - MULTIPLE SCLEROSIS (5) HTN (hypertension) Assessment/Plan: Hold lisinopril due to hypotension Due to sepsis Cont IVF Code(s): I10 - ESSENTIAL (PRIMARY) HYPERTENSION (6) Neurogenic bladder Code(s): N31.9 - NEUROMUSCULAR DYSFUNCTION OF BLADDER, UNSPECIFIED
[2019-06-15] MEDS ORDERED: PIPERACILLIN/TAZOBACTAM 3.375 GM VIAL IVPB ONE ×3 (00:53→17:11)
[2019-06-15] MEDS ORDERED: DEXTROSE 5%-WATER - 50 ML IVPB ONE ×3 (00:53→17:11)
[2019-06-15] MEDS: PIPERACILLIN/TAZOB 3.375 GM 3.375 GM in DEXTROSE 5%-WATER - 50 ML IVPB SCH ×3 (01:13→17:14)
[2019-06-15 07:34] LABS: BASO % 0.1 % (0-2.0); EOS % 1.3 % (0-4.5); HEMATOCRIT 24.9 % (32.4-45.2); HEMOGLOBIN 7.7 GM/dL (10.7-15.3); LYMPH % 12.5 % (8-40); MCH 22.2 pg (25.7-33.7); MCHC 31.1 g/dl (32.0-36.0); MEAN CELL VOLUME 71.5 fl (80-96); MEAN PLT VOLUME 7.7 fl (7.5-11.1); MONO % 8.8 % (3.8-10.2); NEUT % 77.3 % (42.8-82.8); PLATELET COUNT 473 K/MM3 (134-434); RBC 3.48 M/mm3 (3.60-5.2); RDW 18.6 % (11.6-15.6); WHITE BLOOD COUNT 10.8 K/mm3 (4.0-10.0)
[2019-06-15 08:02] LABS: ALBUMIN 1.6 g/dl (3.4-5.0); ALK PHOS 90 U/L (45-117); ANION GAP 8 MMOL/L (8-16); BILIRUBIN,TOTAL 0.4 mg/dL (0.2-1); BLOOD UREA NITROGEN 5.4 mg/dL (7-18); CALCIUM 7.8 mg/dL (8.5-10.1); CHLORIDE 107 mmol/L (98-107); CO2 25 mmol/L (21-32); CREATININE 0.3 mg/dL (0.55-1.3); GLUCOSE,RANDOM 101 mg/dL (74-106); POTASSIUM 3.6 mmol/L (3.5-5.1); SGOT/AST 9 U/L (15-37); SGPT/ALT < 6 U/L (13-61); SODIUM 140 mmol/L (136-145); TOT PROT 5.7 g/dl (6.4-8.2)
[2019-06-15] MEDS ORDERED: PT OWN MED DRAWER 7, Y5N ONE ×2 (09:26→09:29)
[2019-06-15] MEDS: BACLOFEN 10 MG TABLET (FP) PO SCH (09:30)
[2019-06-15] MEDS: VALPROATE SODIUM 250 MG/5 ML UNIT DOSE CUP PO SCH (09:30)
[2019-06-15] MEDS: HEPARIN NA (PORCINE) 5,000 UNITS/ML 1ML VIAL SQ SCH ×2 (09:32→21:24)
[2019-06-15] MEDS: DEXTROSE 5%-0.45% SALINE 1,000 ML IV SCH (11:33)
[2019-06-15 13:39] LABS: ANISOCYTOSIS 1+; MACROCYTOSIS 0; OVALOCYTE 1+; PLATELET ESTIMATE NORMAL; TARGET CELLS 1+; TEAR DROP CELLS 1+
--- NOTE | 2019-06-15 16:57 | PN ---
Progress Note, Physician History of Present Illness: Pt remains alert, states she feels well. Afebrile today, wbc minimally elevated. No cough/SOB, abd pain/n/v/d. - Current Medication List Current Medications: Active Medications Baclofen (Lioresal -) 20 mg PO DAILY [facility] Last Admin: 06/15/19 09:30 Dose: 20 mg Heparin Sodium (Porcine) (Heparin -) 5,000 unit SQ BID [facility] Last Admin: 06/15/19 09:32 Dose: 5,000 unit Dextrose/Sodium Chloride (D5-1/2ns -) 1,000 mls @ 75 mls/hr IV [facility]IR [facility] Last Admin: 06/15/19 11:33 Dose: 75 mls/hr Piperacillin Sod/Tazobactam (Sod 3.375 gm/ Dextrose) 50 mls @ 100 mls/hr IVPB Q8H-IV [facility]; Protocol Last Admin: 06/15/19 09:30 Dose: 100 mls/hr Valproate Sodium (Depakene -) 500 mg PO DAILY [facility] Last Admin: 06/15/19 09:30 Dose: 500 mg - Objective Vital Signs: Vital Signs Temperature 98.5 F 06/15/19 14:41 Pulse Rate 102 H 06/15/19 14:41 Respiratory Rate 18 06/15/19 14:41 Blood Pressure 118/71 06/15/19 14:41 O2 Sat by Pulse Oximetry (%) 100 06/13/19 21:00 Constitutional: Yes: No Distress, Calm Cardiovascular: Yes: Regular Rate and Rhythm Respiratory: Yes: Regular Gastrointestinal: Yes: Normal Bowel Sounds, Soft Genitourinary: Yes: Other (suprapubic tube/Lt nephrostomy draining) Extremities: Yes: Other (contracted) Edema: No Neurological: Yes: Alert Labs: CBC, BMP 06/15/19 06:30 06/15/19 06:30 INR, PTT INR 1.41 (0.83-1.09) H 06/10/19 02:45 Microbiology 06/13/19 14:45 Blood - Peripheral Venous Blood Culture - Preliminary NO GROWTH OBTAINED AFTER 48 HOURS, INCUBATION TO CONTINUE FOR 3 DAYS. 06/13/19 14:25 Blood - Peripheral Venous Blood Culture - Preliminary NO GROWTH OBTAINED AFTER 48 HOURS, INCUBATION TO CONTINUE FOR 3 DAYS. 06/09/19 21:25 Body Fluid - Other Gram Stain - Final 06/09/19 21:25 Body Fluid - Other Body Fluid Culture - Final Escherichia Coli Beta Hem Streptococcus Group F 06/09/19 21:25 Body Fluid - Other Anaerobic Culture - Final Bacteroides Uniformis 06/09/19 21:25 Blood - Peripheral Venous Blood Culture - Final Escherichia Coli Brevibacterium Species 06/09/19 21:30 Blood - Peripheral Venous Blood Culture - Final Non Lactose Fermenting Gnb Staph Hominis Sub Sp Hominis Problem List - Problems (1) HTN (hypertension) Code(s): I10 - ESSENTIAL (PRIMARY) HYPERTENSION (2) Multiple sclerosis Code(s): G35 - MULTIPLE SCLEROSIS (3) Nephrostomy tube displaced Code(s): T83.022A - DISPLACEMENT OF NEPHROSTOMY CATHETER, INITIAL ENCOUNTER (4) Neurogenic bladder Code(s): N31.9 - NEUROMUSCULAR DYSFUNCTION OF BLADDER, UNSPECIFIED (5) Sepsis Code(s): A41.9 - SEPSIS, UNSPECIFIED ORGANISM Assessment/Plan Complicated UTI/Bacteremia MS Neurogenic bladder with SPC/nephrostomy HTN KATIE resolved -- continue IV antibiotics -- repeat blood culture neg 48h -- monitor wbc/temps currently stable
--- NOTE | 2019-06-15 20:51 | PN ---
Progress Note, Physician History of Present Illness: No new complaints - Current Medication List Current Medications: Active Medications Baclofen (Lioresal -) 20 mg PO DAILY [facility] Last Admin: 06/15/19 09:30 Dose: 20 mg Heparin Sodium (Porcine) (Heparin -) 5,000 unit SQ BID [facility] Last Admin: 06/15/19 09:32 Dose: 5,000 unit Dextrose/Sodium Chloride (D5-1/2ns -) 1,000 mls @ 75 mls/hr IV ASDIR [facility] Last Admin: 06/15/19 11:33 Dose: 75 mls/hr Piperacillin Sod/Tazobactam (Sod 3.375 gm/ Dextrose) 50 mls @ 100 mls/hr IVPB Q8H-IV [facility]; Protocol Last Admin: 06/15/19 17:14 Dose: 100 mls/hr Valproate Sodium (Depakene -) 500 mg PO DAILY [facility] Last Admin: 06/15/19 09:30 Dose: 500 mg - Objective Vital Signs: Vital Signs Temperature 98.8 F 06/15/19 18:00 Pulse Rate 106 H 06/15/19 18:00 Respiratory Rate 18 06/15/19 18:00 Blood Pressure 112/70 06/15/19 18:00 O2 Sat by Pulse Oximetry (%) 100 06/13/19 21:00 Neck: Yes: WNL, Supple Cardiovascular: Yes: WNL, Regular Rate and Rhythm Respiratory: Yes: WNL, Regular, CTA Bilaterally Gastrointestinal: Yes: WNL, Normal Bowel Sounds, Soft Labs: CBC, BMP 06/15/19 06:30 06/15/19 06:30 INR, PTT INR 1.41 (0.83-1.09) H 06/10/19 02:45 Problem List - Problems (1) Sepsis Assessment/Plan: BC(+) and Urine culture(+) for lactose fermenting gnb Cont IV antibxs Repeat Blood cultures remain negative Code(s): A41.9 - SEPSIS, UNSPECIFIED ORGANISM (2) Nephrostomy tube displaced Assessment/Plan: SPC reinserted Replace Lt nephrostomy tube due to Lt hydronephrosis/ureteric stone Code(s): T83.022A - DISPLACEMENT OF NEPHROSTOMY CATHETER, INITIAL ENCOUNTER (3) Seizure Assessment/Plan: Cont depakote Code(s): R56.9 - UNSPECIFIED CONVULSIONS (4) Multiple sclerosis Code(s): G35 - MULTIPLE SCLEROSIS (5) HTN (hypertension) Assessment/Plan: Hold lisinopril due to hypotension Due to sepsis Cont IVF Code(s): I10 - ESSENTIAL (PRIMARY) HYPERTENSION (6) Neurogenic bladder Code(s): N31.9 - NEUROMUSCULAR DYSFUNCTION OF BLADDER, UNSPECIFIED
[2019-06-16] MEDS ORDERED: PIPERACILLIN/TAZOBACTAM 3.375 GM VIAL IVPB ONE ×3 (01:10→17:00)
[2019-06-16] MEDS ORDERED: DEXTROSE 5%-WATER - 50 ML IVPB ONE ×3 (01:11→17:00)
[2019-06-16] MEDS: PIPERACILLIN/TAZOB 3.375 GM 3.375 GM in DEXTROSE 5%-WATER - 50 ML IVPB SCH ×3 (01:27→17:09)
[2019-06-16 09:47] LABS: BASO % 0.2 % (0-2.0); EOS % 1.2 % (0-4.5); HEMATOCRIT 23.2 % (32.4-45.2); HEMOGLOBIN 7.2 GM/dL (10.7-15.3); LYMPH % 10.4 % (8-40); MCH 22.7 pg (25.7-33.7); MCHC 31.2 g/dl (32.0-36.0); MEAN CELL VOLUME 72.8 fl (80-96); MEAN PLT VOLUME 7.7 fl (7.5-11.1); MONO % 9.1 % (3.8-10.2); NEUT % 79.1 % (42.8-82.8); PLATELET COUNT 461 K/MM3 (134-434); RBC 3.18 M/mm3 (3.60-5.2); RDW 19.2 % (11.6-15.6); WHITE BLOOD COUNT 10.3 K/mm3 (4.0-10.0)
[2019-06-16] MEDS: VALPROATE SODIUM 250 MG/5 ML UNIT DOSE CUP PO SCH (09:53)
[2019-06-16] MEDS: BACLOFEN 10 MG TABLET (FP) PO SCH (09:54)
[2019-06-16] MEDS: HEPARIN NA (PORCINE) 5,000 UNITS/ML 1ML VIAL SQ SCH ×2 (09:57→21:41)
[2019-06-16 10:17] LABS: BLOOD UREA NITROGEN 4.6 mg/dL (7-18); CALCIUM 7.9 mg/dL (8.5-10.1); CREATININE 0.3 mg/dL (0.55-1.3); POTASSIUM 3.3 mmol/L (3.5-5.1)
--- NOTE | 2019-06-16 10:41 | PN ---
Progress Note, Physician History of Present Illness: patient stable doing well - Current Medication List Current Medications: Active Medications Baclofen (Lioresal -) 20 mg PO DAILY [facility] Last Admin: 06/16/19 09:54 Dose: 20 mg Heparin Sodium (Porcine) (Heparin -) 5,000 unit SQ BID [facility] Last Admin: 06/16/19 09:57 Dose: 5,000 unit Dextrose/Sodium Chloride (D5-1/2ns -) 1,000 mls @ 75 mls/hr IV [facility]IR [facility] Last Admin: 06/15/19 11:33 Dose: 75 mls/hr Piperacillin Sod/Tazobactam (Sod 3.375 gm/ Dextrose) 50 mls @ 100 mls/hr IVPB Q8H-IV [facility]; Protocol Last Admin: 06/16/19 09:55 Dose: 100 mls/hr Valproate Sodium (Depakene -) 500 mg PO DAILY [facility] Last Admin: 06/16/19 09:53 Dose: 500 mg - Objective Vital Signs: Vital Signs Temperature 98 F 06/16/19 05:38 Pulse Rate 80 06/16/19 05:38 Respiratory Rate 16 06/16/19 05:38 Blood Pressure 107/63 06/16/19 05:38 O2 Sat by Pulse Oximetry (%) 100 06/15/19 21:00 Constitutional: Yes: No Distress, Calm Cardiovascular: Yes: S1, S2 Gastrointestinal: Yes: Normal Bowel Sounds, Soft Musculoskeletal: Yes: Other Extremities: Yes: Other Neurological: Yes: Alert, Oriented Psychiatric: Yes: Alert, Oriented Labs: CBC, BMP 06/16/19 09:15 06/16/19 09:15 INR, PTT INR 1.41 (0.83-1.09) H 06/10/19 02:45 Assessment/Plan Problem List - Problems (1) HTN (hypertension) Code(s): I10 - ESSENTIAL (PRIMARY) HYPERTENSION (2) Multiple sclerosis Code(s): G35 - MULTIPLE SCLEROSIS (3) Nephrostomy tube displaced Code(s): T83.022A - DISPLACEMENT OF NEPHROSTOMY CATHETER, INITIAL ENCOUNTER (4) Neurogenic bladder Code(s): N31.9 - NEUROMUSCULAR DYSFUNCTION OF BLADDER, UNSPECIFIED (5) Sepsis Code(s): A41.9 - SEPSIS, UNSPECIFIED ORGANISM Assessment/Plan Complicated UTI/Bacteremia MS Neurogenic bladder with SPC/nephrostomy HTN KATIE resolved -- continue IV antibiotics rest as per the team
[2019-06-16 12:06] LABS: ANISOCYTOSIS 3+; MACROCYTOSIS 0; OVALOCYTE 1+; PLATELET ESTIMATE NORMAL; TARGET CELLS 1+; TEAR DROP CELLS 1+
[2019-06-16] MEDS: DEXTROSE 5%-0.45% SALINE 1,000 ML IV SCH (17:08)
--- NOTE | 2019-06-16 20:35 | PN ---
Progress Note, Physician History of Present Illness: No new complaints - Current Medication List Current Medications: Active Medications Baclofen (Lioresal -) 20 mg PO DAILY [facility] Last Admin: 06/16/19 09:54 Dose: 20 mg Heparin Sodium (Porcine) (Heparin -) 5,000 unit SQ BID [facility] Last Admin: 06/16/19 09:57 Dose: 5,000 unit Dextrose/Sodium Chloride (D5-1/2ns -) 1,000 mls @ 75 mls/hr IV [facility]IR [facility] Last Admin: 06/16/19 17:08 Dose: 75 mls/hr Piperacillin Sod/Tazobactam (Sod 3.375 gm/ Dextrose) 50 mls @ 100 mls/hr IVPB Q8H-IV [facility]; Protocol Last Admin: 06/16/19 17:09 Dose: 100 mls/hr Valproate Sodium (Depakene -) 500 mg PO DAILY [facility] Last Admin: 06/16/19 09:53 Dose: 500 mg - Objective Vital Signs: Vital Signs Temperature 98.6 F 06/16/19 17:27 Pulse Rate 92 H 06/16/19 17:27 Respiratory Rate 18 06/16/19 17:27 Blood Pressure 108/58 L 06/16/19 17:27 O2 Sat by Pulse Oximetry (%) 100 06/15/19 21:00 Neck: Yes: WNL, Supple Cardiovascular: Yes: WNL, Regular Rate and Rhythm Respiratory: Yes: WNL, Regular, CTA Bilaterally Gastrointestinal: Yes: WNL, Normal Bowel Sounds, Soft, Abdomen, Obese Genitourinary: Yes: Other ((+) SPC/Lt nephrostomy tube) Labs: CBC, BMP 06/16/19 09:15 06/16/19 09:15 INR, PTT INR 1.41 (0.83-1.09) H 06/10/19 02:45 Problem List - Problems (1) Sepsis Assessment/Plan: BC(+) Ecoli/Beta hemolytic strept Cont IV antibxs Monitor BC Code(s): A41.9 - SEPSIS, UNSPECIFIED ORGANISM (2) Nephrostomy tube displaced Assessment/Plan: SPC reinserted IR for replacement of nephrostomy tube Code(s): T83.022A - DISPLACEMENT OF NEPHROSTOMY CATHETER, INITIAL ENCOUNTER (3) Seizure Assessment/Plan: Cont depakote Code(s): R56.9 - UNSPECIFIED CONVULSIONS (4) Multiple sclerosis Assessment/Plan: Will need placement in STR Code(s): G35 - MULTIPLE SCLEROSIS (5) HTN (hypertension) Assessment/Plan: Hold lisinopril due to hypotension Due to sepsis Cont IVF Code(s): I10 - ESSENTIAL (PRIMARY) HYPERTENSION (6) Neurogenic bladder Code(s): N31.9 - NEUROMUSCULAR DYSFUNCTION OF BLADDER, UNSPECIFIED
[2019-06-17] MEDS: PIPERACILLIN/TAZOB 3.375 GM 3.375 GM in DEXTROSE 5%-WATER - 50 ML IVPB SCH ×3 (02:35→17:04)
[2019-06-17] MEDS: DEXTROSE 5%-0.45% SALINE 1,000 ML IV SCH ×2 (03:00→07:00)
[2019-06-17] MEDS ORDERED: DEXTROSE 5%-WATER - 50 ML IVPB ONE ×3 (03:14→16:56)
[2019-06-17] MEDS ORDERED: PIPERACILLIN/TAZOBACTAM 3.375 GM VIAL IVPB ONE ×3 (03:14→16:56)
[2019-06-17] MEDS: VALPROATE SODIUM 250 MG/5 ML UNIT DOSE CUP PO SCH (09:59)
[2019-06-17] MEDS: BACLOFEN 10 MG TABLET (FP) PO SCH (09:59)
--- NOTE | 2019-06-17 11:58 | PN ---
Progress Note, Physician History of Present Illness: stable improving - Current Medication List Current Medications: Active Medications Baclofen (Lioresal -) 20 mg PO DAILY [facility] Last Admin: 06/17/19 09:59 Dose: 20 mg Dextrose/Sodium Chloride (D5-1/2ns -) 1,000 mls @ 75 mls/hr IV [facility]IR [facility] Last Admin: 06/17/19 07:00 Dose: 75 mls/hr Piperacillin Sod/Tazobactam (Sod 3.375 gm/ Dextrose) 50 mls @ 100 mls/hr IVPB Q8H-IV [facility]; Protocol Last Admin: 06/17/19 10:00 Dose: 100 mls/hr Valproate Sodium (Depakene -) 500 mg PO DAILY [facility] Last Admin: 06/17/19 09:59 Dose: 500 mg - Objective Vital Signs: Vital Signs Temperature 97.6 F 06/17/19 06:00 Pulse Rate 88 06/17/19 06:00 Respiratory Rate 18 06/17/19 06:00 Blood Pressure 124/72 06/17/19 06:00 O2 Sat by Pulse Oximetry (%) 100 06/15/19 21:00 Constitutional: Yes: No Distress, Calm Cardiovascular: Yes: S1, S2 Respiratory: Yes: Regular, CTA Bilaterally Gastrointestinal: Yes: Normal Bowel Sounds, Soft Musculoskeletal: Yes: Other Extremities: Yes: Other (contracted) Neurological: Yes: Alert, Oriented Psychiatric: Yes: Alert, Oriented Labs: CBC, BMP 06/16/19 09:15 06/16/19 09:15 INR, PTT INR 1.41 (0.83-1.09) H 06/10/19 02:45 Assessment/Plan Problem List - Problems (1) HTN (hypertension) Code(s): I10 - ESSENTIAL (PRIMARY) HYPERTENSION (2) Multiple sclerosis Code(s): G35 - MULTIPLE SCLEROSIS (3) Nephrostomy tube displaced Code(s): T83.022A - DISPLACEMENT OF NEPHROSTOMY CATHETER, INITIAL ENCOUNTER (4) Neurogenic bladder Code(s): N31.9 - NEUROMUSCULAR DYSFUNCTION OF BLADDER, UNSPECIFIED (5) Sepsis Code(s): A41.9 - SEPSIS, UNSPECIFIED ORGANISM Assessment/Plan Complicated UTI/Bacteremia MS Neurogenic bladder with SPC/nephrostomy HTN KATIE resolved -- continue IV antibiotics rest as per the team
[2019-06-17 16:38] LABS: BASO % 0.1 % (0-2.0); HEMATOCRIT 23.7 % (32.4-45.2); HEMOGLOBIN 7.4 GM/dL (10.7-15.3); LYMPH % 13.3 % (8-40); MCH 22.7 pg (25.7-33.7); MCHC 31.3 g/dl (32.0-36.0); MEAN CELL VOLUME 72.8 fl (80-96); MEAN PLT VOLUME 7.6 fl (7.5-11.1); MONO % 8.1 % (3.8-10.2); NEUT % 77.5 % (42.8-82.8); PLATELET COUNT 483 K/MM3 (134-434); RBC 3.25 M/mm3 (3.60-5.2); RDW 18.8 % (11.6-15.6); WHITE BLOOD COUNT 8.4 K/mm3 (4.0-10.0)
[2019-06-17 17:01] LABS: ALBUMIN 1.5 g/dl (3.4-5.0); BILIRUBIN,TOTAL 0.9 mg/dL (0.2-1); BLOOD UREA NITROGEN 8.1 mg/dL (7-18); CALCIUM 7.6 mg/dL (8.5-10.1); CREATININE 0.4 mg/dL (0.55-1.3); POTASSIUM 3.5 mmol/L (3.5-5.1); TOT PROT 5.4 g/dl (6.4-8.2)
[2019-06-17] MEDS ORDERED: PT OWN MED DRAWER 7, Y5N ONE (17:57)
--- NOTE | 2019-06-17 22:56 | PN ---
Progress Note, Physician History of Present Illness: No new complaints - Current Medication List Current Medications: Active Medications Baclofen (Lioresal -) 20 mg PO DAILY [facility] Last Admin: 06/17/19 09:59 Dose: 20 mg Dextrose/Sodium Chloride (D5-1/2ns -) 1,000 mls @ 75 mls/hr IV [facility]IR [facility] Last Admin: 06/17/19 07:00 Dose: 75 mls/hr Piperacillin Sod/Tazobactam (Sod 3.375 gm/ Dextrose) 50 mls @ 100 mls/hr IVPB Q8H-IV [facility]; Protocol Last Admin: 06/17/19 17:04 Dose: 100 mls/hr Valproate Sodium (Depakene -) 500 mg PO DAILY [facility] Last Admin: 06/17/19 09:59 Dose: 500 mg - Objective Vital Signs: Vital Signs Temperature 98.6 F 06/17/19 18:54 Pulse Rate 92 H 06/17/19 18:54 Respiratory Rate 20 06/17/19 18:54 Blood Pressure 134/77 06/17/19 18:54 O2 Sat by Pulse Oximetry (%) 100 06/17/19 09:00 Neck: Yes: WNL, Supple Cardiovascular: Yes: WNL, Regular Rate and Rhythm Respiratory: Yes: WNL, Regular, CTA Bilaterally Gastrointestinal: Yes: WNL, Normal Bowel Sounds, Soft Genitourinary: Yes: Other ((+) SPC/Lt nephrostomy tube) Extremities: Yes: WNL Edema: No Labs: CBC, BMP 06/17/19 15:53 06/17/19 15:53 INR, PTT INR 1.41 (0.83-1.09) H 06/10/19 02:45 Problem List - Problems (1) Sepsis Assessment/Plan: BC(+) Ecoli/Beta hemolytic strept Cont IV antibxs Monitor BC Code(s): A41.9 - SEPSIS, UNSPECIFIED ORGANISM (2) Nephrostomy tube displaced Assessment/Plan: SPC reinserted IR for replacement of nephrostomy tube Code(s): T83.022A - DISPLACEMENT OF NEPHROSTOMY CATHETER, INITIAL ENCOUNTER (3) Seizure Assessment/Plan: Cont depakote Code(s): R56.9 - UNSPECIFIED CONVULSIONS (4) Multiple sclerosis Assessment/Plan: Will need placement in STR Code(s): G35 - MULTIPLE SCLEROSIS (5) HTN (hypertension) Assessment/Plan: Hold lisinopril due to hypotension Due to sepsis Cont IVF Code(s): I10 - ESSENTIAL (PRIMARY) HYPERTENSION (6) Neurogenic bladder Code(s): N31.9 - NEUROMUSCULAR DYSFUNCTION OF BLADDER, UNSPECIFIED
[2019-06-18] MEDS: PIPERACILLIN/TAZOB 3.375 GM 3.375 GM in DEXTROSE 5%-WATER - 50 ML IVPB SCH ×3 (02:20→17:08)
[2019-06-18] MEDS ORDERED: PIPERACILLIN/TAZOBACTAM 3.375 GM VIAL IVPB ONE ×3 (02:55→15:45)
[2019-06-18] MEDS ORDERED: DEXTROSE 5%-WATER - 50 ML IVPB ONE ×3 (02:55→15:45)
--- NOTE | 2019-06-18 09:06 | PN ---
Progress Note, Physician History of Present Illness: stable no new issues - Current Medication List Current Medications: Active Medications Baclofen (Lioresal -) 20 mg PO DAILY [facility] Last Admin: 06/17/19 09:59 Dose: 20 mg Dextrose/Sodium Chloride (D5-1/2ns -) 1,000 mls @ 75 mls/hr IV ASDIR [facility] Last Admin: 06/17/19 07:00 Dose: 75 mls/hr Piperacillin Sod/Tazobactam (Sod 3.375 gm/ Dextrose) 50 mls @ 100 mls/hr IVPB Q8H-IV [facility]; Protocol Last Admin: 06/18/19 02:20 Dose: 100 mls/hr Valproate Sodium (Depakene -) 500 mg PO DAILY [facility] Last Admin: 06/17/19 09:59 Dose: 500 mg - Objective Vital Signs: Vital Signs Temperature 97.7 F 06/18/19 06:35 Pulse Rate 84 06/18/19 06:35 Respiratory Rate 20 06/18/19 06:35 Blood Pressure 133/77 06/18/19 06:35 O2 Sat by Pulse Oximetry (%) 94 L 06/17/19 21:00 Constitutional: Yes: No Distress, Calm Cardiovascular: Yes: S1, S2 Respiratory: Yes: Regular, CTA Bilaterally Gastrointestinal: Yes: Normal Bowel Sounds, Soft Musculoskeletal: Yes: WNL Extremities: Yes: Other Neurological: Yes: Alert, Oriented Psychiatric: Yes: Alert Labs: CBC, BMP 06/17/19 15:53 06/17/19 15:53 INR, PTT INR 1.41 (0.83-1.09) H 06/10/19 02:45 Assessment/Plan Problem List - Problems (1) HTN (hypertension) Code(s): I10 - ESSENTIAL (PRIMARY) HYPERTENSION (2) Multiple sclerosis Code(s): G35 - MULTIPLE SCLEROSIS (3) Nephrostomy tube displaced Code(s): T83.022A - DISPLACEMENT OF NEPHROSTOMY CATHETER, INITIAL ENCOUNTER (4) Neurogenic bladder Code(s): N31.9 - NEUROMUSCULAR DYSFUNCTION OF BLADDER, UNSPECIFIED (5) Sepsis Code(s): A41.9 - SEPSIS, UNSPECIFIED ORGANISM gm negative bacteremia gm positive bacteremia Assessment/Plan Complicated UTI/Bacteremia MS Neurogenic bladder with SPC/nephrostomy HTN KATIE resolved -- continue IV antibiotics rest as per the team repeat blood cx negative nutrition await for identification of one organism
[2019-06-18 09:37] LABS: BASO % 0.9 % (0-2.0); EOS % 0.6 % (0-4.5); HEMATOCRIT 22.4 % (32.4-45.2); LYMPH % 8.4 % (8-40); MCHC 31.2 g/dl (32.0-36.0); MEAN CELL VOLUME 73.8 fl (80-96); MEAN PLT VOLUME 7.3 fl (7.5-11.1); NEUT % 83.1 % (42.8-82.8); PLATELET COUNT 467 K/MM3 (134-434); RBC 3.04 M/mm3 (3.60-5.2); WHITE BLOOD COUNT 11.2 K/mm3 (4.0-10.0)
[2019-06-18] MEDS: DEXTROSE 5%-0.45% SALINE 1,000 ML IV SCH ×2 (09:41→11:00)
[2019-06-18] MEDS: BACLOFEN 10 MG TABLET (FP) PO SCH (09:42)
[2019-06-18] MEDS: VALPROATE SODIUM 250 MG/5 ML UNIT DOSE CUP PO SCH (09:42)
[2019-06-18 10:12] LABS: ALBUMIN 1.4 g/dl (3.4-5.0); BILIRUBIN,TOTAL 0.2 mg/dL (0.2-1); BLOOD UREA NITROGEN 6.2 mg/dL (7-18); CALCIUM 7.6 mg/dL (8.5-10.1); CREATININE 0.4 mg/dL (0.55-1.3); POTASSIUM 3.7 mmol/L (3.5-5.1)
--- NOTE | 2019-06-18 16:30 | PN ---
Progress Note (short form) - Note Progress Note: ct reviewd [address] and recent 06/10/19. 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 findings discussed with Dr Frias. [facility] antibiotics is the treatment of choice, usually bactrim. this kidney is nonfunctional.
--- NOTE | 2019-06-18 22:03 | PN ---
Progress Note, Physician History of Present Illness: No new complaints - Current Medication List Current Medications: Active Medications Baclofen (Lioresal -) 20 mg PO DAILY [facility] Last Admin: 06/18/19 09:42 Dose: 20 mg Dextrose/Sodium Chloride (D5-1/2ns -) 1,000 mls @ 75 mls/hr IV ASDIR [facility] Last Admin: 06/18/19 11:00 Dose: 75 mls/hr Piperacillin Sod/Tazobactam (Sod 3.375 gm/ Dextrose) 50 mls @ 100 mls/hr IVPB Q8H-IV [facility]; Protocol Last Admin: 06/18/19 17:08 Dose: 100 mls/hr Valproate Sodium (Depakene -) 500 mg PO DAILY [facility] Last Admin: 06/18/19 09:42 Dose: 500 mg - Objective Vital Signs: Vital Signs Temperature 98.2 F 06/18/19 20:16 Pulse Rate 88 06/18/19 20:16 Respiratory Rate 20 06/18/19 19:26 Blood Pressure 108/66 06/18/19 20:16 O2 Sat by Pulse Oximetry (%) 98 06/18/19 09:00 Constitutional: Yes: Thin Neck: Yes: WNL, Supple Cardiovascular: Yes: WNL, Regular Rate and Rhythm Respiratory: Yes: WNL, Regular, CTA Bilaterally Gastrointestinal: Yes: WNL, Normal Bowel Sounds, Soft Genitourinary: Yes: Other ((+) SPC in place) Labs: CBC, BMP 06/18/19 09:14 06/18/19 09:14 INR, PTT INR 1.41 (0.83-1.09) H 06/10/19 02:45 Problem List - Problems (1) Sepsis Assessment/Plan: BC(+) Ecoli/Beta hemolytic strept Cont IV antibxs Repeat Blood cultures remain negative Spoke w/ IR Dr Allen who feels that [address] and recent 06/10/19. 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 Code(s): A41.9 - SEPSIS, UNSPECIFIED ORGANISM (2) Nephrostomy tube displaced Assessment/Plan: SPC reinserted Spoke w/ IR Dr Allen who states Code(s): T83.022A - DISPLACEMENT OF NEPHROSTOMY CATHETER, INITIAL ENCOUNTER (3) Seizure Assessment/Plan: Cont depakote Code(s): R56.9 - UNSPECIFIED CONVULSIONS (4) Multiple sclerosis Assessment/Plan: Will need placement in STR Code(s): G35 - MULTIPLE SCLEROSIS (5) HTN (hypertension) Assessment/Plan: Hold lisinopril due to hypotension Due to sepsis Cont IVF Code(s): I10 - ESSENTIAL (PRIMARY) HYPERTENSION (6) Neurogenic bladder Assessment/Plan: SPC in place Code(s): N31.9 - NEUROMUSCULAR DYSFUNCTION OF BLADDER, UNSPECIFIED
[2019-06-19] MEDS ORDERED: PIPERACILLIN/TAZOBACTAM 3.375 GM VIAL IVPB ONE ×3 (01:41→17:17)
[2019-06-19] MEDS ORDERED: DEXTROSE 5%-WATER - 50 ML IVPB ONE ×3 (01:42→17:18)
[2019-06-19] MEDS: PIPERACILLIN/TAZOB 3.375 GM 3.375 GM in DEXTROSE 5%-WATER - 50 ML IVPB SCH ×3 (01:44→17:24)
[2019-06-19] MEDS: INSULIN SLIDING SCALE (NOVOLOG) 1 VIAL SQ SCH ×4 (06:58→21:25)
[2019-06-19 07:42] LABS: BASO % 0.6 % (0-2.0); EOS % 1.1 % (0-4.5); HEMATOCRIT 22.5 % (32.4-45.2); LYMPH % 12.2 % (8-40); MCH 23.3 pg (25.7-33.7); MCHC 31.3 g/dl (32.0-36.0); MEAN CELL VOLUME 74.5 fl (80-96); MEAN PLT VOLUME 7.7 fl (7.5-11.1); MONO % 9.4 % (3.8-10.2); NEUT % 76.7 % (42.8-82.8); PLATELET COUNT 433 K/MM3 (134-434); RBC 3.02 M/mm3 (3.60-5.2); RDW 19.1 % (11.6-15.6); WHITE BLOOD COUNT 9.4 K/mm3 (4.0-10.0)
[2019-06-19 08:12] LABS: ALBUMIN 1.5 g/dl (3.4-5.0); ALK PHOS 86 U/L (45-117); ANION GAP 5 MMOL/L (8-16); BILIRUBIN,TOTAL 0.3 mg/dL (0.2-1); BLOOD UREA NITROGEN 5.1 mg/dL (7-18); CALCIUM 7.9 mg/dL (8.5-10.1); CHLORIDE 107 mmol/L (98-107); CO2 30 mmol/L (21-32); CREATININE 0.2 mg/dL (0.55-1.3); GLUCOSE,RANDOM 67 mg/dL (74-106); POTASSIUM 4.3 mmol/L (3.5-5.1); SGOT/AST 12 U/L (15-37); SGPT/ALT < 6 U/L (13-61); SODIUM 143 mmol/L (136-145); TOT PROT 5.4 g/dl (6.4-8.2)
--- NOTE | 2019-06-19 08:23 | PN ---
Progress Note, Physician History of Present Illness: stable no new issues - Current Medication List Current Medications: Active Medications Baclofen (Lioresal -) 20 mg PO DAILY [facility] Last Admin: 06/18/19 09:42 Dose: 20 mg Piperacillin Sod/Tazobactam (Sod 3.375 gm/ Dextrose) 50 mls @ 100 mls/hr IVPB Q8H-IV [facility]; Protocol Last Admin: 06/19/19 01:44 Dose: 100 mls/hr Insulin Aspart (Novolog Vial Sliding Scale -) 1 vial SQ ACHS [facility]; Protocol Last Admin: 06/19/19 06:58 Dose: Not Given Valproate Sodium (Depakene -) 500 mg PO DAILY [facility] Last Admin: 06/18/19 09:42 Dose: 500 mg - Objective Vital Signs: Vital Signs Temperature 98.6 F 06/19/19 06:00 Pulse Rate 82 06/19/19 06:00 Respiratory Rate 20 06/19/19 06:00 Blood Pressure 122/68 06/19/19 06:00 O2 Sat by Pulse Oximetry (%) 98 06/18/19 09:00 Constitutional: Yes: No Distress, Calm Cardiovascular: Yes: S1, S2 Respiratory: Yes: Regular, CTA Bilaterally Gastrointestinal: Yes: Normal Bowel Sounds, Soft Extremities: Yes: Other Neurological: Yes: Alert, Oriented Psychiatric: Yes: Alert, Oriented Labs: CBC, BMP 06/19/19 06:15 INR, PTT INR 1.41 (0.83-1.09) H 06/10/19 02:45 Assessment/Plan Problem List - Problems (1) HTN (hypertension) Code(s): I10 - ESSENTIAL (PRIMARY) HYPERTENSION (2) Multiple sclerosis Code(s): G35 - MULTIPLE SCLEROSIS (3) Nephrostomy tube displaced Code(s): T83.022A - DISPLACEMENT OF NEPHROSTOMY CATHETER, INITIAL ENCOUNTER (4) Neurogenic bladder Code(s): N31.9 - NEUROMUSCULAR DYSFUNCTION OF BLADDER, UNSPECIFIED (5) Sepsis Code(s): A41.9 - SEPSIS, UNSPECIFIED ORGANISM gm negative bacteremia gm positive bacteremia Assessment/Plan Complicated UTI/Bacteremia MS Neurogenic bladder with SPC/nephrostomy HTN KATIE resolved -- continue IV antibiotics rest as per the team repeat blood cx negative nutrition await for identification of one organism
[2019-06-19] MEDS ORDERED: PT OWN MED DRAWER 7, Y5N ONE ×2 (10:39→17:17)
[2019-06-19] MEDS: VALPROATE SODIUM 250 MG/5 ML UNIT DOSE CUP PO SCH (10:42)
[2019-06-19] MEDS: BACLOFEN 10 MG TABLET (FP) PO SCH (10:42)
[2019-06-19] MEDS: ACETAMINOPHEN 325 MG TABLET (FP) PO PRN ×2 (10:50→17:24)
--- NOTE | 2019-06-19 23:26 | PN ---
Progress Note, Physician History of Present Illness: No new complaints - Current Medication List Current Medications: Active Medications Acetaminophen (Tylenol -) 650 mg PO Q6H PRN PRN Reason: PAIN 1- 10 Last Admin: 06/19/19 17:24 Dose: 650 mg Baclofen (Lioresal -) 20 mg PO DAILY [facility] Last Admin: 06/19/19 10:42 Dose: 20 mg Piperacillin Sod/Tazobactam (Sod 3.375 gm/ Dextrose) 50 mls @ 100 mls/hr IVPB Q8H-IV [facility]; Protocol Last Admin: 06/19/19 17:24 Dose: 100 mls/hr Insulin Aspart (Novolog Vial Sliding Scale -) 1 vial SQ ACHS [facility]; Protocol Last Admin: 06/19/19 21:25 Dose: Not Given Valproate Sodium (Depakene -) 500 mg PO DAILY [facility] Last Admin: 06/19/19 10:42 Dose: 500 mg - Objective Vital Signs: Vital Signs Temperature 98.0 F 06/19/19 20:52 Pulse Rate 90 06/19/19 20:45 Respiratory Rate 20 06/19/19 20:45 Blood Pressure 132/75 06/19/19 20:45 O2 Sat by Pulse Oximetry (%) 100 06/19/19 09:00 Constitutional: Yes: Thin HENT: Yes: WNL Neck: Yes: WNL, Supple, Trachea Midline Cardiovascular: Yes: WNL, Regular Rate and Rhythm Respiratory: Yes: WNL, Regular, CTA Bilaterally Gastrointestinal: Yes: WNL, Normal Bowel Sounds, Soft Genitourinary: Yes: Other ((+) SPC) Labs: CBC, BMP 06/19/19 06:15 06/19/19 06:15 INR, PTT INR 1.41 (0.83-1.09) H 06/10/19 02:45 Problem List - Problems (1) Sepsis Assessment/Plan: BC(+) Ecoli/Beta hemolytic strept Cont IV antibxs Repeat Blood cultures remain negative Spoke w/ IR Dr Allen who feels that [address] and recent 06/10/19. 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 Code(s): A41.9 - SEPSIS, UNSPECIFIED ORGANISM (2) Nephrostomy tube displaced Assessment/Plan: SPC reinserted Spoke w/ IR Dr Allen who states Code(s): T83.022A - DISPLACEMENT OF NEPHROSTOMY CATHETER, INITIAL ENCOUNTER (3) Seizure Assessment/Plan: Cont depakote Code(s): R56.9 - UNSPECIFIED CONVULSIONS (4) Multiple sclerosis Assessment/Plan: Will need placement in STR Code(s): G35 - MULTIPLE SCLEROSIS (5) HTN (hypertension) Assessment/Plan: Hold lisinopril due to hypotension Due to sepsis Cont IVF Code(s): I10 - ESSENTIAL (PRIMARY) HYPERTENSION (6) Neurogenic bladder Assessment/Plan: SPC in place Code(s): N31.9 - NEUROMUSCULAR DYSFUNCTION OF BLADDER, UNSPECIFIED
[2019-06-20] MEDS ORDERED: PIPERACILLIN/TAZOBACTAM 3.375 GM VIAL IVPB ONE ×3 (01:16→17:11)
[2019-06-20] MEDS ORDERED: DEXTROSE 5%-WATER - 50 ML IVPB ONE ×3 (01:16→17:11)
[2019-06-20] MEDS: PIPERACILLIN/TAZOB 3.375 GM 3.375 GM in DEXTROSE 5%-WATER - 50 ML IVPB SCH ×3 (01:26→18:15)
[2019-06-20] MEDS: INSULIN SLIDING SCALE (NOVOLOG) 1 VIAL SQ SCH ×4 (06:33→21:22)
--- NOTE | 2019-06-20 08:26 | PN ---
Progress Note, Physician History of Present Illness: patient stable no new issues - Current Medication List Current Medications: Active Medications Acetaminophen (Tylenol -) 650 mg PO Q6H PRN PRN Reason: PAIN 1- 10 Last Admin: 06/19/19 17:24 Dose: 650 mg Baclofen (Lioresal -) 20 mg PO DAILY [facility] Last Admin: 06/19/19 10:42 Dose: 20 mg Piperacillin Sod/Tazobactam (Sod 3.375 gm/ Dextrose) 50 mls @ 100 mls/hr IVPB Q8H-IV [facility]; Protocol Last Admin: 06/20/19 01:26 Dose: 100 mls/hr Insulin Aspart (Novolog Vial Sliding Scale -) 1 vial SQ ACHS [facility]; Protocol Last Admin: 06/20/19 06:33 Dose: Not Given Valproate Sodium (Depakene -) 500 mg PO DAILY [facility] Last Admin: 06/19/19 10:42 Dose: 500 mg - Objective Vital Signs: Vital Signs Temperature 98 F 06/20/19 06:00 Pulse Rate 86 06/20/19 06:00 Respiratory Rate 20 06/20/19 06:00 Blood Pressure 129/81 06/20/19 06:00 O2 Sat by Pulse Oximetry (%) 98 06/19/19 21:00 Constitutional: Yes: No Distress, Calm Cardiovascular: Yes: S1, S2 Respiratory: Yes: Regular, CTA Bilaterally Gastrointestinal: Yes: Normal Bowel Sounds, Soft Musculoskeletal: Yes: WNL Extremities: Yes: Other Neurological: Yes: Alert, Oriented Psychiatric: Yes: Alert, Oriented Labs: CBC, BMP 06/19/19 06:15 06/19/19 06:15 INR, PTT INR 1.41 (0.83-1.09) H 06/10/19 02:45 Assessment/Plan Problem List - Problems (1) HTN (hypertension) Code(s): I10 - ESSENTIAL (PRIMARY) HYPERTENSION (2) Multiple sclerosis Code(s): G35 - MULTIPLE SCLEROSIS (3) Nephrostomy tube displaced Code(s): T83.022A - DISPLACEMENT OF NEPHROSTOMY CATHETER, INITIAL ENCOUNTER (4) Neurogenic bladder Code(s): N31.9 - NEUROMUSCULAR DYSFUNCTION OF BLADDER, UNSPECIFIED (5) Sepsis Code(s): A41.9 - SEPSIS, UNSPECIFIED ORGANISM gm negative bacteremia gm positive bacteremia Assessment/Plan Complicated UTI/Bacteremia MS Neurogenic bladder with SPC/nephrostomy HTN KATIE resolved -- continue IV antibiotics rest as per the team repeat blood cx negative nutrition await for identification of one organism will deescaalte abx tomorrow
[2019-06-20] MEDS: BACLOFEN 10 MG TABLET (FP) PO SCH (09:14)
[2019-06-20] MEDS: VALPROATE SODIUM 250 MG/5 ML UNIT DOSE CUP PO SCH (09:18)
[2019-06-20] MEDS: ACETAMINOPHEN 325 MG TABLET (FP) PO PRN (18:15)
[2019-06-20 20:07] LABS: BASO % 0.3 % (0-2.0); EOS % 0.2 % (0-4.5); HEMATOCRIT 29.9 % (32.4-45.2); HEMOGLOBIN 9.6 GM/dL (10.7-15.3); LYMPH % 3.3 % (8-40); MCH 24.7 pg (25.7-33.7); MCHC 31.9 g/dl (32.0-36.0); MEAN CELL VOLUME 77.5 fl (80-96); MEAN PLT VOLUME 7.4 fl (7.5-11.1); MONO % 7.5 % (3.8-10.2); NEUT % 88.7 % (42.8-82.8); PLATELET COUNT 446 K/MM3 (134-434); RBC 3.86 M/mm3 (3.60-5.2); RDW 19.8 % (11.6-15.6); WHITE BLOOD COUNT 17.8 K/mm3 (4.0-10.0)
[2019-06-20 20:30] LABS: ALBUMIN 1.7 g/dl (3.4-5.0); BILIRUBIN,TOTAL 0.2 mg/dL (0.2-1); BLOOD UREA NITROGEN 9.9 mg/dL (7-18); CALCIUM 8.2 mg/dL (8.5-10.1); CREATININE 0.4 mg/dL (0.55-1.3); POTASSIUM 4.2 mmol/L (3.5-5.1); TOT PROT 5.8 g/dl (6.4-8.2)
--- NOTE | 2019-06-20 21:17 | PN ---
Progress Note, Physician History of Present Illness: No new complaints - Current Medication List Current Medications: Active Medications Acetaminophen (Tylenol -) 650 mg PO Q6H PRN PRN Reason: PAIN 1- 10 Last Admin: 06/20/19 18:15 Dose: 650 mg Baclofen (Lioresal -) 20 mg PO DAILY [facility] Last Admin: 06/20/19 09:14 Dose: 20 mg Piperacillin Sod/Tazobactam (Sod 3.375 gm/ Dextrose) 50 mls @ 100 mls/hr IVPB Q8H-IV [facility]; Protocol Last Admin: 06/20/19 18:15 Dose: 100 mls/hr Insulin Aspart (Novolog Vial Sliding Scale -) 1 vial SQ ACHS [facility]; Protocol Last Admin: 06/20/19 18:11 Dose: Not Given Valproate Sodium (Depakene -) 500 mg PO DAILY [facility] Last Admin: 06/20/19 09:18 Dose: 500 mg - Objective Vital Signs: Vital Signs Temperature 98.3 F 06/20/19 19:47 Pulse Rate 94 H 06/20/19 19:47 Respiratory Rate 20 06/20/19 19:47 Blood Pressure 134/68 06/20/19 19:47 O2 Sat by Pulse Oximetry (%) 98 06/19/19 21:00 Constitutional: Yes: Thin Neck: Yes: WNL, Supple Cardiovascular: Yes: WNL, Regular Rate and Rhythm Respiratory: Yes: WNL, Regular, CTA Bilaterally Gastrointestinal: Yes: WNL, Normal Bowel Sounds, Soft Labs: CBC, BMP 06/20/19 19:20 06/20/19 19:20 INR, PTT INR 1.41 (0.83-1.09) H 06/10/19 02:45 Problem List - Problems (1) Sepsis Assessment/Plan: BC(+) Ecoli/Beta hemolytic strept Cont IV antibxs Repeat Blood cultures remain negative Spoke w/ IR Dr Allen who feels that [address] and recent 06/10/19. 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 Code(s): A41.9 - SEPSIS, UNSPECIFIED ORGANISM (2) Nephrostomy tube displaced Assessment/Plan: SPC reinserted Spoke w/ IR Dr Allen who states Code(s): T83.022A - DISPLACEMENT OF NEPHROSTOMY CATHETER, INITIAL ENCOUNTER (3) Seizure Assessment/Plan: Cont depakote Code(s): R56.9 - UNSPECIFIED CONVULSIONS (4) Multiple sclerosis Code(s): G35 - MULTIPLE SCLEROSIS (5) HTN (hypertension) Assessment/Plan: Hold lisinopril due to hypotension Due to sepsis Cont IVF Code(s): I10 - ESSENTIAL (PRIMARY) HYPERTENSION (6) Neurogenic bladder Code(s): N31.9 - NEUROMUSCULAR DYSFUNCTION OF BLADDER, UNSPECIFIED
[2019-06-21] MEDS ORDERED: DEXTROSE 5%-WATER - 50 ML IVPB ONE ×2 (02:12→08:17)
[2019-06-21] MEDS ORDERED: PIPERACILLIN/TAZOBACTAM 3.375 GM VIAL IVPB ONE ×2 (02:12→08:16)
[2019-06-21] MEDS: PIPERACILLIN/TAZOB 3.375 GM 3.375 GM in DEXTROSE 5%-WATER - 50 ML IVPB SCH ×2 (02:18→10:43)
[2019-06-21] MEDS: INSULIN SLIDING SCALE (NOVOLOG) 1 VIAL SQ SCH ×4 (06:28→22:33)
[2019-06-21] MEDS: BACLOFEN 10 MG TABLET (FP) PO SCH (10:43)
[2019-06-21] MEDS: VALPROATE SODIUM 250 MG/5 ML UNIT DOSE CUP PO SCH (10:44)
--- NOTE | 2019-06-21 12:43 | PN ---
Progress Note, Physician Chief Complaint: patient stable no new issues - Current Medication List Current Medications: Active Medications Acetaminophen (Tylenol -) 650 mg PO Q6H PRN PRN Reason: PAIN 1- 10 Last Admin: 06/20/19 18:15 Dose: 650 mg Baclofen (Lioresal -) 20 mg PO DAILY [facility] Last Admin: 06/21/19 10:43 Dose: 20 mg Insulin Aspart (Novolog Vial Sliding Scale -) 1 vial SQ ACHS [facility]; Protocol Last Admin: 06/21/19 12:29 Dose: Not Given Valproate Sodium (Depakene -) 500 mg PO DAILY [facility] Last Admin: 06/21/19 10:44 Dose: 500 mg - Objective Vital Signs: Vital Signs Temperature 98.5 F 06/21/19 06:00 Pulse Rate 93 H 06/21/19 06:00 Respiratory Rate 20 06/21/19 06:00 Blood Pressure 139/78 06/21/19 06:00 O2 Sat by Pulse Oximetry (%) 98 06/19/19 21:00 Constitutional: Yes: No Distress, Calm Cardiovascular: Yes: S1, S2 Respiratory: Yes: Regular, CTA Bilaterally Gastrointestinal: Yes: Normal Bowel Sounds, Soft Musculoskeletal: Yes: WNL Extremities: Yes: Other (contracted) Neurological: Yes: Alert, Oriented Psychiatric: Yes: Alert, Oriented Labs: CBC, BMP 06/20/19 19:20 06/20/19 19:20 INR, PTT INR 1.41 (0.83-1.09) H 06/10/19 02:45 Assessment/Plan Problem List - Problems (1) HTN (hypertension) Code(s): I10 - ESSENTIAL (PRIMARY) HYPERTENSION (2) Multiple sclerosis Code(s): G35 - MULTIPLE SCLEROSIS (3) Nephrostomy tube displaced Code(s): T83.022A - DISPLACEMENT OF NEPHROSTOMY CATHETER, INITIAL ENCOUNTER (4) Neurogenic bladder Code(s): N31.9 - NEUROMUSCULAR DYSFUNCTION OF BLADDER, UNSPECIFIED (5) Sepsis Code(s): A41.9 - SEPSIS, UNSPECIFIED ORGANISM gm negative bacteremia gm positive bacteremia Assessment/Plan Complicated UTI/Bacteremia MS Neurogenic bladder with SPC/nephrostomy HTN KATIE resolved -- continue IV antibiotics rest as per the team repeat blood cx negative nutrition await for identification of one organism stopped abx
--- NOTE | 2019-06-21 21:16 | PN ---
Progress Note, Physician History of Present Illness: No new complaints - Current Medication List Current Medications: Active Medications Acetaminophen (Tylenol -) 650 mg PO Q6H PRN PRN Reason: PAIN 1- 10 Last Admin: 06/20/19 18:15 Dose: 650 mg Baclofen (Lioresal -) 20 mg PO DAILY [facility] Last Admin: 06/21/19 10:43 Dose: 20 mg Insulin Aspart (Novolog Vial Sliding Scale -) 1 vial SQ ACHS [facility]; Protocol Last Admin: 06/21/19 18:05 Dose: Not Given Valproate Sodium (Depakene -) 500 mg PO DAILY [facility] Last Admin: 06/21/19 10:44 Dose: 500 mg - Objective Vital Signs: Vital Signs Temperature 98.6 F 06/21/19 18:57 Pulse Rate 106 H 06/21/19 18:57 Respiratory Rate 20 06/21/19 18:57 Blood Pressure 138/82 06/21/19 18:57 O2 Sat by Pulse Oximetry (%) 98 06/19/19 21:00 Constitutional: Yes: Thin HENT: Yes: WNL Neck: Yes: WNL, Supple Cardiovascular: Yes: WNL, Regular Rate and Rhythm Respiratory: Yes: WNL, Regular, CTA Bilaterally Gastrointestinal: Yes: WNL, Normal Bowel Sounds, Soft Edema: No Labs: CBC, BMP 06/20/19 19:20 06/20/19 19:20 INR, PTT INR 1.41 (0.83-1.09) H 06/10/19 02:45 Problem List - Problems (1) Sepsis Assessment/Plan: BC(+) Ecoli/Beta hemolytic strept Cont IV antibxs Repeat Blood cultures remain negative Spoke w/ IR Dr Allen who feels that [address] and recent 06/10/19. 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 Code(s): A41.9 - SEPSIS, UNSPECIFIED ORGANISM (2) Nephrostomy tube displaced Assessment/Plan: SPC reinserted Spoke w/ IR Dr Allen who states Code(s): T83.022A - DISPLACEMENT OF NEPHROSTOMY CATHETER, INITIAL ENCOUNTER (3) Seizure Assessment/Plan: Cont depakote Code(s): R56.9 - UNSPECIFIED CONVULSIONS (4) Multiple sclerosis Code(s): G35 - MULTIPLE SCLEROSIS (5) HTN (hypertension) Assessment/Plan: Hold lisinopril due to hypotension Due to sepsis Cont IVF Code(s): I10 - ESSENTIAL (PRIMARY) HYPERTENSION (6) Neurogenic bladder Code(s): N31.9 - NEUROMUSCULAR DYSFUNCTION OF BLADDER, UNSPECIFIED
[2019-06-22] MEDS: INSULIN SLIDING SCALE (NOVOLOG) 1 VIAL SQ SCH ×4 (06:30→21:26)
[2019-06-22 07:54] LABS: BASO % 0.9 % (0-2.0); EOS % 0.8 % (0-4.5); HEMATOCRIT 29.5 % (32.4-45.2); HEMOGLOBIN 9.5 GM/dL (10.7-15.3); LYMPH % 7.6 % (8-40); MCH 24.7 pg (25.7-33.7); MCHC 32.1 g/dl (32.0-36.0); MEAN CELL VOLUME 77.1 fl (80-96); MEAN PLT VOLUME 7.5 fl (7.5-11.1); MONO % 11.5 % (3.8-10.2); NEUT % 79.2 % (42.8-82.8); PLATELET COUNT 458 K/MM3 (134-434); RBC 3.83 M/mm3 (3.60-5.2); RDW 22.4 % (11.6-15.6); WHITE BLOOD COUNT 11.9 K/mm3 (4.0-10.0)
[2019-06-22 08:10] LABS: ALBUMIN 1.7 g/dl (3.4-5.0); BILIRUBIN,TOTAL 0.3 mg/dL (0.2-1); BLOOD UREA NITROGEN 10.1 mg/dL (7-18); CALCIUM 8.2 mg/dL (8.5-10.1); CREATININE 0.2 mg/dL (0.55-1.3); POTASSIUM 4.4 mmol/L (3.5-5.1)
[2019-06-22] MEDS: BACLOFEN 10 MG TABLET (FP) PO SCH (09:02)
[2019-06-22] MEDS: VALPROATE SODIUM 250 MG/5 ML UNIT DOSE CUP PO SCH (09:02)
--- NOTE | 2019-06-22 10:14 | PN ---
Progress Note, Physician History of Present Illness: stable no new issues - Current Medication List Current Medications: Active Medications Acetaminophen (Tylenol -) 650 mg PO Q6H PRN PRN Reason: PAIN 1- 10 Last Admin: 06/20/19 18:15 Dose: 650 mg Baclofen (Lioresal -) 20 mg PO DAILY [facility] Last Admin: 06/22/19 09:02 Dose: 20 mg Insulin Aspart (Novolog Vial Sliding Scale -) 1 vial SQ ACHS [facility]; Protocol Last Admin: 06/22/19 06:30 Dose: Not Given Valproate Sodium (Depakene -) 500 mg PO DAILY [facility] Last Admin: 06/22/19 09:02 Dose: 500 mg - Objective Vital Signs: Vital Signs Temperature 98.3 F 06/22/19 06:00 Pulse Rate 92 H 06/22/19 06:00 Respiratory Rate 20 06/22/19 06:00 Blood Pressure 142/86 06/22/19 06:00 O2 Sat by Pulse Oximetry (%) 99 06/21/19 21:00 Constitutional: Yes: No Distress, Calm Cardiovascular: Yes: S1, S2 Respiratory: Yes: Regular, CTA Bilaterally Gastrointestinal: Yes: Normal Bowel Sounds, Soft Musculoskeletal: Yes: WNL Extremities: Yes: Other Neurological: Yes: Alert, Oriented Psychiatric: Yes: Alert, Oriented Labs: CBC, BMP 06/22/19 06:00 06/22/19 06:00 INR, PTT INR 1.41 (0.83-1.09) H 06/10/19 02:45 Assessment/Plan Problem List - Problems (1) HTN (hypertension) Code(s): I10 - ESSENTIAL (PRIMARY) HYPERTENSION (2) Multiple sclerosis Code(s): G35 - MULTIPLE SCLEROSIS (3) Nephrostomy tube displaced Code(s): T83.022A - DISPLACEMENT OF NEPHROSTOMY CATHETER, INITIAL ENCOUNTER (4) Neurogenic bladder Code(s): N31.9 - NEUROMUSCULAR DYSFUNCTION OF BLADDER, UNSPECIFIED (5) Sepsis Code(s): A41.9 - SEPSIS, UNSPECIFIED ORGANISM gm negative bacteremia gm positive bacteremia Assessment/Plan Complicated UTI/Bacteremia MS Neurogenic bladder with SPC/nephrostomy HTN KATIE resolved stable off of abx rest as per the team
[2019-06-22 12:12] LABS: ANISOCYTOSIS 1+; MACROCYTOSIS 0; OVALOCYTE 1+; PLATELET ESTIMATE NORMAL; TARGET CELLS 1+
--- NOTE | 2019-06-22 22:35 | PN ---
Progress Note, Physician History of Present Illness: No new complaints - Current Medication List Current Medications: Active Medications Acetaminophen (Tylenol -) 650 mg PO Q6H PRN PRN Reason: PAIN 1- 10 Last Admin: 06/20/19 18:15 Dose: 650 mg Baclofen (Lioresal -) 20 mg PO DAILY [facility] Last Admin: 06/22/19 09:02 Dose: 20 mg Insulin Aspart (Novolog Vial Sliding Scale -) 1 vial SQ ACHS [facility]; Protocol Last Admin: 06/22/19 21:26 Dose: Not Given Valproate Sodium (Depakene -) 500 mg PO DAILY [facility] Last Admin: 06/22/19 09:02 Dose: 500 mg - Objective Vital Signs: Vital Signs Temperature 97.9 F 06/22/19 17:58 Pulse Rate 93 H 06/22/19 17:58 Respiratory Rate 20 06/22/19 17:58 Blood Pressure 142/81 06/22/19 17:58 O2 Sat by Pulse Oximetry (%) 99 06/22/19 09:00 Neck: Yes: WNL, Supple Cardiovascular: Yes: WNL, Regular Rate and Rhythm Respiratory: Yes: WNL, Regular, CTA Bilaterally Gastrointestinal: Yes: WNL, Normal Bowel Sounds, Soft Genitourinary: Yes: Other ((+) SPC) Labs: CBC, BMP 06/22/19 06:00 06/22/19 06:00 INR, PTT INR 1.41 (0.83-1.09) H 06/10/19 02:45 Problem List - Problems (1) Sepsis Assessment/Plan: BC(+) Ecoli/Beta hemolytic strept Pt is off antibxs Repeat Blood cultures remain negative Spoke w/ IR Dr Allen who feels that [address] and recent 06/10/19. 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 Code(s): A41.9 - SEPSIS, UNSPECIFIED ORGANISM (2) Nephrostomy tube displaced Assessment/Plan: SPC reinserted Spoke w/ IR Dr Allen who states that there is no collection and nephrostomy tube is not indicated Code(s): T83.022A - DISPLACEMENT OF NEPHROSTOMY CATHETER, INITIAL ENCOUNTER (3) Seizure Assessment/Plan: Cont depakote Code(s): R56.9 - UNSPECIFIED CONVULSIONS (4) Multiple sclerosis Assessment/Plan: Will need placement in STR Code(s): G35 - MULTIPLE SCLEROSIS (5) HTN (hypertension) Assessment/Plan: Hold lisinopril due to hypotension Due to sepsis Cont IVF Code(s): I10 - ESSENTIAL (PRIMARY) HYPERTENSION (6) Neurogenic bladder Assessment/Plan: SPC in place Code(s): N31.9 - NEUROMUSCULAR DYSFUNCTION OF BLADDER, UNSPECIFIED
[2019-06-23] MEDS: INSULIN SLIDING SCALE (NOVOLOG) 1 VIAL SQ SCH ×4 (06:27→21:02)
[2019-06-23] MEDS: ACETAMINOPHEN 325 MG TABLET (FP) PO PRN (07:49)
[2019-06-23] MEDS ORDERED: ACETAMINOPHEN 325 MG TABLET (FP) NR PRN (07:52)
[2019-06-23] MEDS ORDERED: ACETAMINOPHEN 325 MG TABLET (FP) PO PRN (07:53)
[2019-06-23] MEDS ORDERED: PT OWN MED DRAWER 7, Y5N ONE ×5 (08:01→21:45)
--- NOTE | 2019-06-23 09:03 | PN ---
Progress Note, Physician History of Present Illness: stable no new issues - Current Medication List Current Medications: Active Medications Acetaminophen (Tylenol -) 650 mg PO Q6H PRN PRN Reason: PAIN 1- 10 Baclofen (Lioresal -) 20 mg PO DAILY [facility] Last Admin: 06/22/19 09:02 Dose: 20 mg Insulin Aspart (Novolog Vial Sliding Scale -) 1 vial SQ ACHS [facility]; Protocol Last Admin: 06/23/19 06:27 Dose: Not Given Valproate Sodium (Depakene -) 500 mg PO DAILY [facility] Last Admin: 06/22/19 09:02 Dose: 500 mg - Objective Vital Signs: Vital Signs Temperature 97.9 F 06/23/19 07:10 Pulse Rate 89 06/23/19 07:10 Respiratory Rate 18 06/23/19 07:10 Blood Pressure 151/79 06/23/19 07:10 O2 Sat by Pulse Oximetry (%) 99 06/22/19 21:00 Constitutional: Yes: No Distress, Calm HENT: Yes: Atraumatic Cardiovascular: Yes: Regular Rate and Rhythm Respiratory: Yes: Regular, CTA Bilaterally Gastrointestinal: Yes: Normal Bowel Sounds, Soft Musculoskeletal: Yes: Other Extremities: Yes: Other Neurological: Yes: Alert, Oriented Psychiatric: Yes: Alert, Oriented Labs: CBC, BMP 06/22/19 06:00 06/22/19 06:00 INR, PTT INR 1.41 (0.83-1.09) H 06/10/19 02:45 Assessment/Plan Problem List - Problems (1) HTN (hypertension) Code(s): I10 - ESSENTIAL (PRIMARY) HYPERTENSION (2) Multiple sclerosis Code(s): G35 - MULTIPLE SCLEROSIS (3) Nephrostomy tube displaced Code(s): T83.022A - DISPLACEMENT OF NEPHROSTOMY CATHETER, INITIAL ENCOUNTER (4) Neurogenic bladder Code(s): N31.9 - NEUROMUSCULAR DYSFUNCTION OF BLADDER, UNSPECIFIED (5) Sepsis Code(s): A41.9 - SEPSIS, UNSPECIFIED ORGANISM gm negative bacteremia gm positive bacteremia Assessment/Plan Complicated UTI/Bacteremia MS Neurogenic bladder with SPC/nephrostomy HTN KATIE resolved plan continue current mgmt monitor
[2019-06-23] MEDS: BACLOFEN 10 MG TABLET (FP) PO SCH (10:17)
[2019-06-23] MEDS: VALPROATE SODIUM 250 MG/5 ML UNIT DOSE CUP PO SCH (10:17)
--- NOTE | 2019-06-23 22:07 | PN ---
Progress Note, Physician History of Present Illness: No new complaints - Current Medication List Current Medications: Active Medications Acetaminophen (Tylenol -) 650 mg PO Q6H PRN PRN Reason: PAIN 1- 10 Baclofen (Lioresal -) 20 mg PO DAILY [facility] Last Admin: 06/23/19 10:17 Dose: 20 mg Insulin Aspart (Novolog Vial Sliding Scale -) 1 vial SQ ACHS [facility]; Protocol Last Admin: 06/23/19 21:02 Dose: Not Given Valproate Sodium (Depakene -) 500 mg PO DAILY [facility] Last Admin: 06/23/19 10:17 Dose: 500 mg - Objective Vital Signs: Vital Signs Temperature 98.5 F 06/23/19 17:31 Pulse Rate 90 06/23/19 17:31 Respiratory Rate 18 06/23/19 17:31 Blood Pressure 132/76 06/23/19 17:31 O2 Sat by Pulse Oximetry (%) 99 06/22/19 21:00 Neck: Yes: WNL, Supple Cardiovascular: Yes: WNL, Regular Rate and Rhythm Respiratory: Yes: WNL, Regular, CTA Bilaterally Gastrointestinal: Yes: WNL, Normal Bowel Sounds, Soft Labs: CBC, BMP 06/22/19 06:00 06/22/19 06:00 INR, PTT INR 1.41 (0.83-1.09) H 06/10/19 02:45 Problem List - Problems (1) Nephrostomy tube displaced Assessment/Plan: At this point nephrostomy tube has been removed as per IR Check ct scan abd Probable dc planning in am Code(s): T83.022A - DISPLACEMENT OF NEPHROSTOMY CATHETER, INITIAL ENCOUNTER (2) Sepsis Assessment/Plan: Antibiotics have been dc'ed Code(s): A41.9 - SEPSIS, UNSPECIFIED ORGANISM (3) Multiple sclerosis Assessment/Plan: Will need placement in STR Code(s): G35 - MULTIPLE SCLEROSIS (4) Neurogenic bladder Assessment/Plan: SPC in place Code(s): N31.9 - NEUROMUSCULAR DYSFUNCTION OF BLADDER, UNSPECIFIED (5) Seizure Assessment/Plan: Cont depakote Code(s): R56.9 - UNSPECIFIED CONVULSIONS (6) Suprapubic catheter dysfunction Code(s): T83.010A - BREAKDOWN (MECHANICAL) OF CYSTOSTOMY CATHETER, INIT ENCNTR Qualifiers: Encounter type: initial encounter Qualified Code(s): T83.010A - Breakdown ( mechanical) of cystostomy catheter, initial encounter
[2019-06-24] MEDS: INSULIN SLIDING SCALE (NOVOLOG) 1 VIAL SQ SCH ×3 (06:33→16:50)
[2019-06-24] MEDS ORDERED: PT OWN MED DRAWER 7, Y5N ONE (09:22)
[2019-06-24] MEDS: VALPROATE SODIUM 250 MG/5 ML UNIT DOSE CUP PO SCH (09:24)
[2019-06-24] MEDS: BACLOFEN 10 MG TABLET (FP) PO SCH (09:24)
--- NOTE | 2019-06-24 10:51 | PN ---
Progress Note, Physician History of Present Illness: stable no new issues - Current Medication List Current Medications: Active Medications Acetaminophen (Tylenol -) 650 mg PO Q6H PRN PRN Reason: PAIN 1- 10 Baclofen (Lioresal -) 20 mg PO DAILY [facility] Last Admin: 06/24/19 09:24 Dose: 20 mg Insulin Aspart (Novolog Vial Sliding Scale -) 1 vial SQ ACHS [facility]; Protocol Last Admin: 06/24/19 06:33 Dose: Not Given Valproate Sodium (Depakene -) 500 mg PO DAILY [facility] Last Admin: 06/24/19 09:24 Dose: 500 mg - Objective Vital Signs: Vital Signs Temperature 98.3 F 06/24/19 06:00 Pulse Rate 90 06/24/19 06:00 Respiratory Rate 18 06/24/19 06:00 Blood Pressure 149/84 06/24/19 06:00 O2 Sat by Pulse Oximetry (%) 99 06/23/19 21:00 Constitutional: Yes: No Distress, Calm Cardiovascular: Yes: S1, S2 Respiratory: Yes: Regular, CTA Bilaterally Gastrointestinal: Yes: Normal Bowel Sounds, Soft Musculoskeletal: Yes: Other Extremities: Yes: Other Neurological: Yes: Alert, Oriented Psychiatric: Yes: Alert, Oriented Labs: CBC, BMP 06/22/19 06:00 06/22/19 06:00 INR, PTT INR 1.41 (0.83-1.09) H 06/10/19 02:45 Assessment/Plan Problem List - Problems (1) HTN (hypertension) Code(s): I10 - ESSENTIAL (PRIMARY) HYPERTENSION (2) Multiple sclerosis Code(s): G35 - MULTIPLE SCLEROSIS (3) Nephrostomy tube displaced Code(s): T83.022A - DISPLACEMENT OF NEPHROSTOMY CATHETER, INITIAL ENCOUNTER (4) Neurogenic bladder Code(s): N31.9 - NEUROMUSCULAR DYSFUNCTION OF BLADDER, UNSPECIFIED (5) Sepsis Code(s): A41.9 - SEPSIS, UNSPECIFIED ORGANISM gm negative bacteremia gm positive bacteremia Assessment/Plan Complicated UTI/Bacteremia MS Neurogenic bladder with SPC/nephrostomy HTN KATIE resolved plan continue current mgmt monitor
[2019-06-24 16:57] VITALS: BP 134/78; PULSE 113; TEMP 98.2
== END 2019-06-24 18:28 | disposition home or self-care (01) | DRG 698 ==
LOC: JER 17:33 → JERBED 23:36 → J8W 06-10 03:46
PROVIDERS: ADMIT Internal Medicine; ATTEND Internal Medicine
PROC: 0T25X0Z Change Drainage Device in Kidney, External Approach (ICD-10-PCS; principal; 2019-06-10)
PROC: 0TP5X0Z Removal of Drainage Device from Kidney, External Approach (ICD-10-PCS; 2019-06-23)
DX: T83.022A Displacement of nephrostomy catheter, initial encounter (principal); R53.2 Functional quadriplegia; E43 Unspecified severe protein-calorie malnutrition; A41.50 Gram-negative sepsis, unspecified; T83.510A Infection and inflammatory reaction due to cystostomy catheter, initial encounter; N13.6 Pyonephrosis; Z68.1 Body mass index [BMI] 19.9 or less, adult; N17.9 Acute kidney failure, unspecified; I10 Essential (primary) hypertension; G35 Multiple sclerosis; N31.9 Neuromuscular dysfunction of bladder, unspecified; Y83.9 Surgical procedure, unspecified as the cause of abnormal reaction of the patient, or of later complication, without mention of misadventure at the time of the procedure; R56.9 Unspecified convulsions
CPT/HCPCS: 10030; 36415; 36430; 49424; 71045-TC-FY; 74176-TC; 76000-TC-FY; 76080-TC-FY; 76998-TC; 80048; 80053; 82803; 82962; 83605; 84484; 85025; 85610; 85730; 86850; 86900; 86901; 86922; 87040; 87070; 87075; 87076; 87077; 87186; 87205; 93005; 93010; 97161-GP; 99284-25; A4358; C1729; C1769; C1887; J0131; J0475; J1644; J7030; P9038; P9058

== ENCOUNTER 2019-11-26 17:28 | Inpatient (IN) | payer OTHER, MEDICARE ==
--- NOTE | 2019-11-26 18:40 | PDOC ---
Documentation entered by Kota Elaine SCRIBE, acting as scribe for Yuri Pandey MD. Yuri Pandey MD: This documentation has been prepared by the Chele marshall Nirvannie, SCRIBE, under my direction and personally reviewed by me in its entirety. I confirm that the documentation accurately reflects all work, treatment, procedures, and medical decision making performed by me. Attending Attestation - Resident Resident Name: SvetlanakietYovanny - ED Attending Attestation I have performed the following: I have examined & evaluated the patient, The case was reviewed & discussed with the resident, I agree w/resident's findings & plan, Exceptions are as noted - HPI HPI: 11/26/19 18:38 64y F hx of MS, Neurogenic bladder, hx of neprohostomy tube (sp rremoval), presents with complaint of possible suprapubic catheter dislodgement -patient denies any overt complaints. However upon examination the patients urine bag appears purple in color concern for possible infection, patient is unclear how long this is been for as her daughter changes and empties the bag. Patient is also unsure how long the catheter is been there for. The patient also endorses foul-smelling urine. The patient denies any fevers, nausea, vomiting, abdominal pain. - Physicial Exam PE: 11/26/19 18:38 GENERAL: The patient is awake, cachectic appearing HEAD: Normocephalic, atraumatic. EYES: extraocular movements intact, sclera anicteric, conjunctiva clear. ENT: Normal voice, Moist mucous membranes. NECK: Normal range of motion, supple LUNGS: Breath sounds equal, clear to auscultation bilaterally. No wheezes, no rhonchi, no rales. HEART: Regular rate and rhythm, normal S1 and S2 without murmur, rub or gallop. ABDOMEN: Soft, nontender, suprapubic cathter in place with foul smlling dichage , purplish coloing on he urine bag. EXTREMITIES: contracted Lower extremities - Medical Decision Making 11/26/19 18:20 We will replace the patient's catheter Will obtain new urine as well as blood work to eval for possible infection Will discuss with Dr. Eller. 11/26/19 22:20 dr. eller recommends admision and abx case dw dr oliveira by dr. parks for further mngement of uti will admit to her service for furhte mnagement Heart Score/ECG Review - ECG Impressions Comment:: 11/26/19 23:37 Twelve-lead EKG was performed and reviewed by me. There is normal sinus rhythm with a normal rate. Rate of 93 The axis is normal. The intervals are normal. There is normal R wave progression There are no ST or T wave abnormalities. Impression: Normal twelve-lead EKG
[2019-11-26] MEDS ORDERED: CEFTRIAXONE 1 GM/50 ML BAG ONE (20:44)
--- NOTE | 2019-11-26 20:49 | PDOC ---
History of Present Illness - General Chief Complaint: Urinary Catheter Problem Stated Complaint: CATHETER PROBLEM Time Seen by Provider: 11/26/19 17:54 History Source: Patient - History of Present Illness Initial Comments: 11/26/19 21:32 Ms. Boone is a 64 y/o woman w/hx MS, neurogenic bladder, suprapubic catheter placement, recurrent UTIs presenting after catheter became dislodged today. She reports that her daughter typically manages the catheter. She is unsure how the catheter became dislodged, but it was noted by her daughter today while checking it. Per her daughter, her urine changed in color approx two days ago - she reports that it was previously a connell color and became more purple in color two days ago. She denies any fevers, chills, weakness, pain around the catheter site. She reports that she normally does not have symptoms during her UTIs. Past History - Past Medical History Allergies/Adverse Reactions: Allergies Allergy/AdvReac Type Severity Reaction Status Date / Time No Known Allergies Allergy Unverified 11/26/19 17:31 Home Medications: Ambulatory Orders Baclofen 20 mg PO DAILY tablet 09/15/14 Divalproex [Depakote -] 500 mg PO DAILY 09/23/18 Lisinopril [Zestril] 2.5 mg PO DAILY 09/23/18 Insulin Sliding Scale [Novolog Vial Sliding Scale -] 1 vial SQ ACHS units 06/24 Cardiac Disorders: Yes COPD: No Disorders: Yes (suprapubic catheter and hx UTI) HTN: Yes Seizures: Yes (LAST- LONG AGO) - Surgical History Cardiac Surgery: Yes (cardiac stents) Orthopedic Surgery: Yes (SHOULDER SX) - Psycho Social/Smoking Cessation Hx Smoking History: Never smoked Have you smoked in the past 12 months: No Hx Alcohol Use: No Drug/Substance Use Hx: No Substance Use Type: None Review of Systems - Review of Systems Able to Perform ROS?: Yes Comments:: 11/26/19 21:40 ROS: GENERAL/CONSTITUTIONAL: No fever or chills. No weakness. HEAD, EYES, EARS, NOSE AND THROAT: No change in vision. No ear pain or discharge. No sore throat. CARDIOVASCULAR: No chest pain or shortness of breath RESPIRATORY: No cough, wheezing, or hemoptysis. GASTROINTESTINAL: No nausea, vomiting, diarrhea or constipation. GENITOURINARY: No dysuria, frequency, or change in urination. MUSCULOSKELETAL: No joint or muscle swelling or pain. No neck or back pain. SKIN: No rash NEUROLOGIC: No headache, vertigo, loss of consciousness, or change in strength/ sensation. ENDOCRINE: No increased thirst. No abnormal weight change HEMATOLOGIC/LYMPHATIC: No anemia, easy bleeding, or history of blood clots. ALLERGIC/IMMUNOLOGIC: No hives or skin allergy. *Physical Exam - Vital Signs Last Vital Signs Temp Pulse Resp BP Pulse Ox 97.6 F 85 16 176/90 H 99 11/26/19 17:40 11/26/19 17:40 11/26/19 17:40 11/26/19 17:40 11/26/19 17:40 - Physical Exam 11/26/19 21:41 PE: GENERAL: Awake, alert, and fully oriented, in no acute distress HEAD: No signs of trauma, normocephalic, atraumatic EYES: PERRLA, EOMI, sclera anicteric, conjunctiva clear ENT: Auricles normal inspection, hearing grossly normal, nares patent, oropharynx clear without exudates. Moist mucosa NECK: Normal ROM, supple, no lymphadenopathy, JVD, or masses LUNGS: No distress, speaks full sentences, clear to auscultation bilaterally HEART: Regular rate and rhythm, normal S1 and S2, no murmurs, rubs or gallops, peripheral pulses normal and equal bilaterally. ABDOMEN: No overlaying erythema, cellulitis, or tenderness noted around catheter insertion point. Catheter tubing stained purple. Ibarra bag stained purple. Catheter noted to be displaced but not fully removed. Abdomen is soft, nontender, normoactive bowel sounds. No guarding, no rebound. No masses EXTREMITIES : Normal inspection, Normal range of motion, no edema. No clubbing or cyanosis NEUROLOGICAL: Cranial nerves II through XII grossly intact. Normal speech, no focal sensorimotor deficits SKIN: Warm, Dry, normal turgor, no rashes or lesions noted ED Treatment Course - LABORATORY CBC & Chemistry Diagram: 11/26/19 20:35 11/26/19 20:35 Medical Decision Making - Medical Decision Making 11/26/19 21:35 64F w/hx MS, recurrent UTIs, suprapubic catheter p/w catheter dislodgement. Urine bag noted to be deep purple, as is catheter tubing. Urine purulent and foul smelling, c/w UTI. Purple color urine notable for possible purple urine bag syndrome given apparently recent change in color, although color may also represent combination of prior infectious resulting in bacterial growth in catheter bag. Plan: Urology consult UA, Urine culture pending catheter replacement Dispo: Pending --- Case discussed with Dr. Eller (Urology). Plan for inpatient admission for bladder irrigation. Urology will replace catheter. Plan for 1g rocephin administration for coverage of presumed urinary infection. Discharge - Discharge Information Problems reviewed: Yes Clinical Impression/Diagnosis: Encounter for suprapubic catheter care, Cystitis Condition: Stable - Admission Yes - Follow up/Referral - Patient Discharge Instructions - Post Discharge Activity
[2019-11-26 20:50] LABS: BASO % 1.1 % (0-2.0); EOS % 1.8 % (0-4.5); HEMATOCRIT 30.3 % (32.4-45.2); HEMOGLOBIN 9.5 GM/dL (10.7-15.3); LYMPH % 21.1 % (8-40); MCH 24.6 pg (25.7-33.7); MCHC 31.2 g/dl (32.0-36.0); MEAN CELL VOLUME 78.6 fl (80-96); MEAN PLT VOLUME 7.8 fl (7.5-11.1); MONO % 11.6 % (3.8-10.2); NEUT % 64.4 % (42.8-82.8); RBC 3.85 M/mm3 (3.60-5.2); RDW 17.7 % (11.6-15.6); WHITE BLOOD COUNT 5.1 K/mm3 (4.0-10.0)
[2019-11-26 21:31] LABS: ALBUMIN 2.7 g/dl (3.4-5.0); ALK PHOS 73 U/L (45-117); ANION GAP 6 MMOL/L (8-16); BILIRUBIN,TOTAL 0.3 mg/dL (0.2-1); BLOOD UREA NITROGEN 9.3 mg/dL (7-18); CALCIUM 8.9 mg/dL (8.5-10.1); CHLORIDE 108 mmol/L (98-107); CO2 25 mmol/L (21-32); CREATININE 0.3 mg/dL (0.55-1.3); GLUCOSE,RANDOM 97 mg/dL (74-106); POTASSIUM 4.7 mmol/L (3.5-5.1); SGOT/AST 20 U/L (15-37); SGPT/ALT 11 U/L (13-61); SODIUM 139 mmol/L (136-145); TOT PROT 8.1 g/dl (6.4-8.2)
[2019-11-26 21:34] LABS: PLATELET COUNT 436 K/MM3 (134-434); PLATELET ESTIMATE INCREASED
[2019-11-27 04:27] VITALS: BMI 14.6
[2019-11-27] MEDS: DEXTROSE 5%-0.45% SALINE 1,000 ML IV SCH ×2 (08:54→22:58)
[2019-11-27] MEDS: LISINOPRIL 5 MG TABLET (FP) PO SCH (09:14)
[2019-11-27] MEDS: DIVALPROEX SODIUM 500 MG TABLET E.C. PO SCH (09:14)
[2019-11-27] MEDS: HEPARIN NA (PORCINE) 5,000 UNITS/ML 1ML VIAL SQ SCH ×2 (09:15→22:59)
[2019-11-27] MEDS ORDERED: FLU VACCINE QUAD 60 MCG/0.5 ML (MDV 19-20) IM ONE (10:00)
[2019-11-27] MEDS: INSULIN SLIDING SCALE (NOVOLOG) 1 VIAL SQ SCH ×3 (10:55→22:59)
--- NOTE | 2019-11-27 11:51 | EKG ---
Test Reason : Blood Pressure : / mmHG Vent. Rate : 093 BPM Atrial Rate : 093 BPM P-R Int : 138 ms QRS Dur : 076 ms QT Int : 370 ms P-R-T Axes : 058 067 072 degrees QTc Int : 460 ms NORMAL SINUS RHYTHM POSSIBLE LEFT ATRIAL ENLARGEMENT BORDERLINE ECG WHEN COMPARED WITH ECG OF 10-JUN-2019 05:30, T WAVE INVERSION NO LONGER EVIDENT IN INFERIOR LEADS T WAVE INVERSION NO LONGER EVIDENT IN ANTEROLATERAL LEADS Confirmed by ANNIKA PELLETIER MD ([id number]) on 11/27/2019 11:51:02 AM Referred By: Confirmed By:ANNIKA PELLETIER MD
--- NOTE | 2019-11-27 19:08 | HP ---
Admitting History and Physical - Admission History of Present Illness: Pt is a 64 y/o female w/ PMH significant for MS, Neurogenic bladder, hx of neprohostomy tube w/ removal, presented with complaint of possible suprapubic catheter dislodgement and leakage of urine. However upon examination the patients urine bag appears purple in color concern for possible infection, patient is unclear how long this is been for as her daughter changes and empties the bag. Patient is also unsure how long the catheter is been there for. The patient also endorses foul-smelling urine. - Past Medical History [employer]: Yes: Multiple Sclerosis Cardiovascular: Yes: HTN Endocrine: Yes: Diabetes Mellitus - Smoking History Smoking history: Never smoked Have you smoked in the past 12 months: No - Alcohol/Substance Use Hx Alcohol Use: No Home Medications - Allergies Allergies/Adverse Reactions: Allergies Allergy/AdvReac Type Severity Reaction Status Date / Time No Known Allergies Allergy Unverified 11/26/19 17:31 - Home Medications Home Medications: Ambulatory Orders Baclofen 20 mg PO DAILY tablet 09/15/14 Divalproex [Depakote -] 500 mg PO DAILY 09/23/18 Lisinopril [Zestril] 2.5 mg PO DAILY 09/23/18 Insulin Sliding Scale [Novolog Vial Sliding Scale -] 1 vial SQ ACHS units 06/24 Review of Systems - Review of Systems Constitutional: reports: No Symptoms Eyes: reports: No Symptoms HENT: reports: No Symptoms Neck: reports: No Symptoms Cardiovascular: reports: No Symptoms Respiratory: reports: No Symptoms Gastrointestinal: reports: No Symptoms Physical Examination Vital Signs: Vital Signs Temperature 98 F 11/27/19 16:58 Pulse Rate 95 H 11/27/19 16:58 Respiratory Rate 11/27/19 16:58 Blood Pressure 151/79 11/27/19 16:58 O2 Sat by Pulse Oximetry (%) 97 11/27/19 09:00 Neck: Yes: WNL, Supple Cardiovascular: Yes: WNL, Regular Rate and Rhythm Respiratory: Yes: WNL, Regular, CTA Bilaterally Gastrointestinal: Yes: WNL, Normal Bowel Sounds, Soft Labs: CBC, BMP 11/26/19 20:35 11/26/19 20:35 Problem List - Problems (1) Encounter for suprapubic catheter care Assessment/Plan: Uro consult Check urine culture Will treat empirically w/ IV ceftriaxone Cont IVF Code(s): Z43.5 - ENCOUNTER FOR ATTENTION TO CYSTOSTOMY (2) Neurogenic bladder Code(s): N31.9 - NEUROMUSCULAR DYSFUNCTION OF BLADDER, UNSPECIFIED (3) HTN (hypertension) Assessment/Plan: BP stable Cont lisinopril Code(s): I10 - ESSENTIAL (PRIMARY) HYPERTENSION (4) Multiple sclerosis Code(s): G35 - MULTIPLE SCLEROSIS (5) Seizure Assessment/Plan: Cont depakote Code(s): R56.9 - UNSPECIFIED CONVULSIONS (6) Diabetes Assessment/Plan: Cont sliding scale w/ coverage Code(s): E11.9 - TYPE 2 DIABETES MELLITUS WITHOUT COMPLICATIONS
--- NOTE | 2019-11-27 20:06 | PN ---
Progress Note (short form) - Note Progress Note: UROLOGY NOTE: 64 y/o F with neurogenic bladder and suprapubic loja drainage has been having gross hematuria via suprapubic loja. Also has necrotic debris in catheter. Will recommend taking pt to O.R for cysto, bladder irrigation and change of suprapubic tube in am.
[2019-11-27] MEDS ORDERED: cefTRIAXone SODIUM 1 GM VIAL ONE (22:51)
[2019-11-27] MEDS ORDERED: DEXTROSE 5%-WATER - 50 ML IVPB ONE (22:51)
[2019-11-27] MEDS: CEFTRIAXONE 1 GM in DEXTROSE 5%-WATER - 50 ML IVPB SCH (22:59)
[2019-11-28] MEDS: INSULIN SLIDING SCALE (NOVOLOG) 1 VIAL SQ SCH ×4 (06:14→21:52)
[2019-11-28 09:20] LABS: BASO % 1.2 % (0-2.0); EOS % 5.4 % (0-4.5); HEMATOCRIT 29.1 % (32.4-45.2); HEMOGLOBIN 9.2 GM/dL (10.7-15.3); LYMPH % 18.2 % (8-40); MCH 24.6 pg (25.7-33.7); MCHC 31.6 g/dl (32.0-36.0); MEAN CELL VOLUME 77.7 fl (80-96); MONO % 10.6 % (3.8-10.2); NEUT % 64.6 % (42.8-82.8); PLATELET COUNT 461 K/MM3 (134-434); RBC 3.75 M/mm3 (3.60-5.2); RDW 17.4 % (11.6-15.6); WHITE BLOOD COUNT 4.7 K/mm3 (4.0-10.0)
[2019-11-28] MEDS ORDERED: cefTRIAXone SODIUM 1 GM VIAL ONE (09:25)
[2019-11-28] MEDS ORDERED: DEXTROSE 5%-WATER - 50 ML IVPB ONE (09:25)
[2019-11-28] MEDS: HEPARIN NA (PORCINE) 5,000 UNITS/ML 1ML VIAL SQ SCH ×2 (09:29→21:48)
[2019-11-28] MEDS: DIVALPROEX SODIUM 500 MG TABLET E.C. PO SCH (09:29)
[2019-11-28] MEDS: LISINOPRIL 5 MG TABLET (FP) PO SCH (09:29)
[2019-11-28] MEDS: DEXTROSE 5%-0.45% SALINE 1,000 ML IV SCH ×2 (09:30→21:52)
[2019-11-28] MEDS: CEFTRIAXONE 1 GM in DEXTROSE 5%-WATER - 50 ML IVPB SCH (09:30)
[2019-11-28 09:39] LABS: ALBUMIN 2.7 g/dl (3.4-5.0); BILIRUBIN,TOTAL 0.1 mg/dL (0.2-1); BLOOD UREA NITROGEN 6.6 mg/dL (7-18); CREATININE 0.3 mg/dL (0.55-1.3); POTASSIUM 4.1 mmol/L (3.5-5.1)
[2019-11-28] MEDS ORDERED: LISINOPRIL 5 MG TABLET (FP) PO ONE (12:15)
--- NOTE | 2019-11-28 13:21 | EKG ---
Test Reason : Blood Pressure : / mmHG Vent. Rate : 090 BPM Atrial Rate : 090 BPM P-R Int : 138 ms QRS Dur : 074 ms QT Int : 368 ms P-R-T Axes : 061 056 078 degrees QTc Int : 450 ms NORMAL SINUS RHYTHM NORMAL ECG WHEN COMPARED WITH ECG OF 26-NOV-2019 23:00, NO SIGNIFICANT CHANGE WAS FOUND Confirmed by ANNIKA PELLETIER MD ([id number]) on 11/28/2019 1:21:11 PM Referred By: CATIE CORREIA Confirmed By:ANNIKA PELLETIER MD
--- NOTE | 2019-11-28 16:44 | HP ---
DATE OF ADMISSION: 11/26/2019 HISTORY: Patient is a 64-year-old female with history of multiple sclerosis and neurogenic bladder. Has had a suprapubic tube in for several years. She presents with gross hematuria via the suprapubic tube. Also her suprapubic tube has not been changed for several months due to a lack of transportation, as per patient. ALLERGIES: She denies any allergies. MEDICATIONS: She is on baclofen, Depakote, Zestril, and insulin. Her BUN 9, creatinine 0.3. Random glucose was 97. Her white count was 5.1, hemoglobin 95, hematocrit 30.3, platelets 463. The patient had blood and urine culture, which is pending. Her maximum temperature is 98.1, blood pressure 157/88, her pulse is 120 and regular, respirations are 20. PLAN: Patient will undergo a cystoscopy and a change of suprapubic catheter. This was explained in detail to patient, and she agrees. KWABENA PÉREZ M.D. [id number]
[2019-11-28] MEDS ORDERED: MIDAZOLAM HCL 2 MG/2 ML SINGLE DOSE VIAL ONE (16:52)
[2019-11-28] MEDS ORDERED: ceFAZolin SODIUM 1 GM VIAL IVPB ONE (17:01)
[2019-11-28] MEDS ORDERED: PROPOFOL 20 ML ONE (17:18)
--- NOTE | 2019-11-28 17:31 | OP ---
Operative Note - Note: Operative Date: 11/28/19 Pre-Operative Diagnosis: NB WITH SP-RUIZ AND HEMATURIA, DISRUPTION OF SUPRAPUBIC TRACT AND HEMATURIA Operation: CYSTO, REVISTION OF SP-TRACT, CHANGE OF ST-RUIZ TO 24F-30CC CATHETER Post-Operative Diagnosis: Same as Pre-op Surgeon: Jonathan Eller Anesthesia: General Specimens Removed: SUPRAPUBIC TRACT, AND RUIZ Estimated Blood Loss (mls): 10 Drains & Tubes with Location: 24F 30CC SP-RUIZ Drains, Volume Out (mls): 0 Blood Volume Replaced (mls): 0 Fluid Volume Replaced (mls): 0 Operative Report Dictated: Yes
--- NOTE | 2019-11-28 17:51 | OP ---
DATE OF OPERATION: 11/28/2019 PREOPERATIVE DIAGNOSIS: Neurogenic bladder, suprapubic Ibarra, suprapubic tract disruption, and gross hematuria. POSTOPERATIVE DIAGNOSIS: Neurogenic bladder, suprapubic Ibarra, suprapubic tract disruption, and gross hematuria with bladder stone. OPERATIVE PROCEDURE: Cystourethroscopy, revision of suprapubic tract, and placement of Ibarra catheter. ANESTHESIA: General. DESCRIPTION OF PROCEDURE: Under above-stated anesthesia, patient is prepped and draped in the usual sterile manner. She is placed in the supine position. The suprapubic catheter was removed. Flexible cystoscopy revealed complete disruption of the suprapubic tract. After multiple attempts, the tract was cannulated. The bladder was inspected. There was a 2-cm stone in the bladder. No other lesions were seen. Some hemorrhagic areas were noticed. They were fulgurated for hemostasis. Due to the bullous edema, ureteral orifices were unable to be visualized. The cystoscopy was then removed. The suprapubic tract was then excised in an elliptical fashion. The entire tract was taken down to the anterior rectus fascia. The dome of the bladder was then repaired after debridement using 3-0 Vicryl suture ligatures and 2-0 Vicryl suture ligatures. A separate stab was made in the bladder, and a 24-Bulgarian 30-mL Ibarra was placed into the bladder. The fascia was closed with 2-0 Vicryl suture ligature. The subcutaneous was closed with 3-0 Vicryl suture ligature. The skin was closed with 4-0 silk mattress sutures. The catheter irrigated well with good return. The patient tolerated the procedure. She returned to the recovery room in good condition. Stephenie [id number]
--- NOTE | 2019-11-28 23:11 | PN ---
Progress Note, Physician History of Present Illness: Cath dislodged again - Current Medication List Current Medications: Active Medications Divalproex Sodium (Depakote -) [address] [facility] Heparin Sodium (Porcine) (Heparin -) 5,[address] [facility] Last Admin: 11/28/19 21:48 Dose: 5,000 unit Ceftriaxone Sodium 1 gm/ (Dextrose) 50 mls @ 100 mls/hr IVPB DAILY [facility]; Protocol Dextrose/Sodium Chloride (D5-1/2ns -) 1,000 mls @ 75 mls/hr IV ASDIR [facility] Last Admin: 11/28/19 21:52 Dose: 75 mls/hr Insulin Aspart (Novolog Vial Sliding Scale -) [address] [facility]; Protocol Last Admin: 11/28/19 21:52 Dose: Not Given Lisinopril (Prinivil) 2.[address] [facility] - Objective Vital Signs: Vital Signs Temperature 97.8 F 11/28/19 19:51 Pulse Rate 82 11/28/19 19:51 Respiratory Rate 20 11/28/19 19:51 Blood Pressure 147/75 11/28/19 19:51 O2 Sat by Pulse Oximetry (%) 99 11/28/19 18:30 Neck: Yes: WNL, Supple Cardiovascular: Yes: WNL, Regular Rate and Rhythm Respiratory: Yes: WNL, Regular, CTA Bilaterally Gastrointestinal: Yes: WNL, Normal Bowel Sounds, Soft Genitourinary: Yes: Other ((+) suprapubic cath) Labs: CBC, BMP 11/28/19 09:00 11/28/19 09:00 Problem List - Problems (1) Encounter for suprapubic catheter care Assessment/Plan: S/P cysto/replacement of suprapubic cath Will treat empirically w/ IV ceftriaxone Monitor urine culture Cont IVF Code(s): Z43.5 - ENCOUNTER FOR ATTENTION TO CYSTOSTOMY (2) Neurogenic bladder Code(s): N31.9 - NEUROMUSCULAR DYSFUNCTION OF BLADDER, UNSPECIFIED (3) HTN (hypertension) Assessment/Plan: BP stable Cont lisinopril Code(s): I10 - ESSENTIAL (PRIMARY) HYPERTENSION (4) Multiple sclerosis Code(s): G35 - MULTIPLE SCLEROSIS (5) Seizure Assessment/Plan: Cont depakote Code(s): R56.9 - UNSPECIFIED CONVULSIONS (6) Diabetes Assessment/Plan: Cont sliding scale w/ coverage Code(s): E11.9 - TYPE 2 DIABETES MELLITUS WITHOUT COMPLICATIONS (7) Severe malnutrition Code(s): E43 - UNSPECIFIED SEVERE PROTEIN-CALORIE MALNUTRITION (8) Functional quadriplegia Code(s): R53.2 - FUNCTIONAL QUADRIPLEGIA
[2019-11-29] MEDS: INSULIN SLIDING SCALE (NOVOLOG) 1 VIAL SQ SCH ×3 (06:27→17:43)
--- NOTE | 2019-11-29 08:46 | PN ---
Progress Note (short form) - Note Progress Note: 64 f s/p MAC for suprapubic cath exchange. pt feels well. no comps. good result of anesthetic care.
[2019-11-29] MEDS ORDERED: DEXTROSE 5%-WATER - 50 ML IVPB ONE (09:37)
[2019-11-29] MEDS ORDERED: PT OWN MED DRAWER 7, Y5N ONE (09:37)
[2019-11-29] MEDS ORDERED: cefTRIAXone SODIUM 1 GM VIAL ONE (09:37)
[2019-11-29] MEDS: HEPARIN NA (PORCINE) 5,000 UNITS/ML 1ML VIAL SQ SCH ×2 (09:38→21:34)
[2019-11-29] MEDS: DIVALPROEX SODIUM 500 MG TABLET E.C. PO SCH ×2 (09:38→09:46)
[2019-11-29] MEDS: LISINOPRIL 5 MG TABLET (FP) PO SCH (09:39)
[2019-11-29] MEDS: CEFTRIAXONE 1 GM in DEXTROSE 5%-WATER - 50 ML IVPB SCH (09:39)
[2019-11-29] MEDS: DIVALPROEX SODIUM 125 MG SPRINKLE CAPS PO SCH ×2 (14:20→21:34)
[2019-11-29] MEDS: DEXTROSE 5%-0.45% SALINE 1,000 ML IV SCH ×2 (17:44→19:50)
--- NOTE | 2019-11-29 22:17 | PN ---
Progress Note, Physician History of Present Illness: Cath dislodged again after replacement by uro - Current Medication List Current Medications: Active Medications Divalproex Sodium (Depakote Sprinkle Caps -) 250 mg PO BID [facility] Last Admin: 11/29/19 21:34 Dose: 250 mg Heparin Sodium (Porcine) (Heparin -) 5,000 unit SQ BID [facility] Last Admin: 11/29/19 21:34 Dose: 5,000 unit Ceftriaxone Sodium 1 gm/ (Dextrose) 50 mls @ 100 mls/hr IVPB DAILY [facility]; Protocol Last Admin: 11/29/19 09:39 Dose: 100 mls/hr Dextrose/Sodium Chloride (D5-1/2ns -) 1,000 mls @ 75 mls/hr IV ASDIR [facility] Last Admin: 11/29/19 19:50 Dose: Not Given Insulin Aspart (Novolog Vial Sliding Scale -) 1 vial SQ BIDAC [facility]; Protocol Last Admin: 11/29/19 17:43 Dose: Not Given Lisinopril (Prinivil) 2.5 mg PO DAILY [facility] Last Admin: 11/29/19 09:39 Dose: 2.5 mg - Objective Vital Signs: Vital Signs Temperature 98.4 F 11/29/19 16:50 Pulse Rate 94 H 11/29/19 16:50 Respiratory Rate 20 11/29/19 16:50 Blood Pressure 155/92 11/29/19 16:50 O2 Sat by Pulse Oximetry (%) 100 11/29/19 09:00 HENT: Yes: WNL Neck: Yes: WNL, Supple Cardiovascular: Yes: WNL, Regular Rate and Rhythm Respiratory: Yes: WNL, Regular, CTA Bilaterally Gastrointestinal: Yes: WNL, Normal Bowel Sounds, Soft Genitourinary: Yes: Other ((+) suprapubic cath) Labs: CBC, BMP 11/28/19 09:00 11/28/19 09:00 Problem List - Problems (1) Encounter for suprapubic catheter care Assessment/Plan: S/P cysto/replacement of suprapubic cath However cath was dislodged again Reconsult uro Will treat empirically w/ IV ceftriaxone Monitor urine culture Cont IVF Code(s): Z43.5 - ENCOUNTER FOR ATTENTION TO CYSTOSTOMY (2) Neurogenic bladder Code(s): N31.9 - NEUROMUSCULAR DYSFUNCTION OF BLADDER, UNSPECIFIED (3) HTN (hypertension) Assessment/Plan: BP stable Cont lisinopril Code(s): I10 - ESSENTIAL (PRIMARY) HYPERTENSION (4) Multiple sclerosis Code(s): G35 - MULTIPLE SCLEROSIS (5) Seizure Assessment/Plan: Cont depakote Code(s): R56.9 - UNSPECIFIED CONVULSIONS (6) Diabetes Assessment/Plan: Cont sliding scale w/ coverage Code(s): E11.9 - TYPE 2 DIABETES MELLITUS WITHOUT COMPLICATIONS (7) Severe malnutrition Code(s): E43 - UNSPECIFIED SEVERE PROTEIN-CALORIE MALNUTRITION (8) Functional quadriplegia Code(s): R53.2 - FUNCTIONAL QUADRIPLEGIA
[2019-11-30] MEDS: INSULIN SLIDING SCALE (NOVOLOG) 1 VIAL SQ SCH ×2 (06:21→17:47)
[2019-11-30] MEDS ORDERED: cefTRIAXone SODIUM 1 GM VIAL ONE (10:54)
[2019-11-30] MEDS ORDERED: DEXTROSE 5%-WATER - 50 ML IVPB ONE (10:54)
[2019-11-30] MEDS: HEPARIN NA (PORCINE) 5,000 UNITS/ML 1ML VIAL SQ SCH ×2 (11:00→21:24)
[2019-11-30] MEDS: DIVALPROEX SODIUM 125 MG SPRINKLE CAPS PO SCH ×2 (11:00→21:24)
[2019-11-30] MEDS: LISINOPRIL 5 MG TABLET (FP) PO SCH (11:01)
[2019-11-30] MEDS: CEFTRIAXONE 1 GM in DEXTROSE 5%-WATER - 50 ML IVPB SCH (17:05)
[2019-12-01] MEDS: INSULIN SLIDING SCALE (NOVOLOG) 1 VIAL SQ SCH ×2 (06:01→17:44)
[2019-12-01] MEDS ORDERED: PT OWN MED DRAWER 7, Y5N ONE (09:57)
[2019-12-01] MEDS: DIVALPROEX SODIUM 125 MG SPRINKLE CAPS PO SCH ×2 (10:02→22:23)
[2019-12-01] MEDS: HEPARIN NA (PORCINE) 5,000 UNITS/ML 1ML VIAL SQ SCH ×2 (10:03→22:23)
[2019-12-01] MEDS: LISINOPRIL 5 MG TABLET (FP) PO SCH (10:03)
--- NOTE | 2019-12-01 13:32 | CONS ---
DATE OF CONSULTATION: DATE OF DICTATION: 11/30/2019 HISTORY: Patient is a 64-year-old female that because of long-term multiple sclerosis and neurogenic bladder with suprapubic tube. She is postoperative day number 2. Underwent suprapubic tract revision, cystoscopy, and suprapubic tube change. PHYSICAL EXAMINATION: Vital Signs: She is presently afebrile. Her vital signs are stable. Her maximum temperature is 98.3, blood pressure 128/81. Abdomen: Her abdomen is soft. Genitourinary: She has put out 1500 mL of urine in the past 24 hours. The tube is patent. The urine is clear. IMPRESSION: At present is patient is urologically stable for discharge. PLAN: We will follow as an outpatient and recommend changing the suprapubic catheter every 6 weeks. Stephenie [id number]
[2019-12-01] MEDS: DEXTROSE 5%-0.45% SALINE 1,000 ML IV SCH (22:24)
--- NOTE | 2019-12-01 22:38 | PN ---
Progress Note, Physician History of Present Illness: Pt voiding w/ no leakage - Current Medication List Current Medications: Active Medications Divalproex Sodium (Depakote Sprinkle Caps -) 250 mg PO BID [facility] Last Admin: 12/01/19 22:23 Dose: 250 mg Heparin Sodium (Porcine) (Heparin -) 5,000 unit SQ BID [facility] Last Admin: 12/01/19 22:23 Dose: 5,000 unit Dextrose/Sodium Chloride (D5-1/2ns -) 1,000 mls @ 75 mls/hr IV ASDIR [facility] Last Admin: 12/01/19 22:24 Dose: Not Given Insulin Aspart (Novolog Vial Sliding Scale -) [facility] Last Admin: 12/01/19 17:44 Dose: Not Given Lisinopril (Prinivil) 2.5 mg PO DAILY [facility] Last Admin: 12/01/19 10:03 Dose: 2.5 mg - Objective Vital Signs: Vital Signs Temperature 97.3 F L 12/01/19 16:30 Pulse Rate 101 H 12/01/19 16:30 Respiratory Rate 18 12/01/19 16:30 Blood Pressure 153/92 12/01/19 16:30 O2 Sat by Pulse Oximetry (%) 98 12/01/19 09:00 Neck: Yes: WNL, Supple Cardiovascular: Yes: WNL, Regular Rate and Rhythm Respiratory: Yes: WNL, Regular, CTA Bilaterally, Other ((+) suprapubic cath) Labs: CBC, BMP 11/28/19 09:00 11/28/19 09:00 Problem List - Problems (1) Encounter for suprapubic catheter care Assessment/Plan: S/P cysto/replacement of suprapubic cath IV antibxs dc'ed bc urine culture has been negative DC planning for am Code(s): Z43.5 - ENCOUNTER FOR ATTENTION TO CYSTOSTOMY (2) Neurogenic bladder Code(s): N31.9 - NEUROMUSCULAR DYSFUNCTION OF BLADDER, UNSPECIFIED (3) HTN (hypertension) Assessment/Plan: BP stable Cont lisinopril Code(s): I10 - ESSENTIAL (PRIMARY) HYPERTENSION (4) Multiple sclerosis Code(s): G35 - MULTIPLE SCLEROSIS (5) Seizure Assessment/Plan: Cont depakote Code(s): R56.9 - UNSPECIFIED CONVULSIONS (6) Diabetes Assessment/Plan: Cont sliding scale w/ coverage Code(s): E11.9 - TYPE 2 DIABETES MELLITUS WITHOUT COMPLICATIONS (7) Severe malnutrition Code(s): E43 - UNSPECIFIED SEVERE PROTEIN-CALORIE MALNUTRITION (8) Functional quadriplegia Code(s): R53.2 - FUNCTIONAL QUADRIPLEGIA
[2019-12-02] MEDS: INSULIN SLIDING SCALE (NOVOLOG) 1 VIAL SQ SCH ×2 (06:38→17:24)
[2019-12-02] MEDS: DIVALPROEX SODIUM 125 MG SPRINKLE CAPS PO SCH (11:02)
[2019-12-02] MEDS: LISINOPRIL 5 MG TABLET (FP) PO SCH (11:02)
[2019-12-02] MEDS: HEPARIN NA (PORCINE) 5,000 UNITS/ML 1ML VIAL SQ SCH (11:03)
--- NOTE | 2019-12-02 14:59 | PATH ---
Surgical Pathology Report Patient Name: CONSTANTINE LUCIA Med. Rec. #: [id number] /Age/Gender: 1955 (Age: 64) / F Account: [id number] Location: [facility] MED/SURG Taken: 11/28/2019 Received: 12/01/2019 Reported: 12/02/2019 Physicians: Stephenie Ash M.D. Specimen(s) Received SUPRAPUBIC TRACT Clinical History Suprapubic stenosis Final Diagnosis SUPRAPUBIC TRACT, REVISION: FRAGMENTS OF SQUAMOUS EPITHELIUM WITH PATCHY MARKED ACUTE INFLAMMATORY EXUDATE, HYPER AND PARAKERATOSIS, Electronically Signed Pam Trinidad M.D. Gross Description Received in formalin labeled "suprapubic tract," is a 1.4 x 1.1 x 0.1 cm bolivar, unoriented soft tissue. The specimen is serially sectioned and entirely submitted in one cassette. /12/01/2019 saudi/12/01/2019
[2019-12-02 19:47] VITALS: BP 122/83; PULSE 103; TEMP 98.3
== END 2019-12-02 21:01 | disposition home health service (06) | DRG 662 ==
LOC: JER 17:28 → SUPCPDRO 17:28 → JERBED 20:00 → J8W 11-27 05:02
PROVIDERS: ADMIT Internal Medicine; ATTEND Internal Medicine
PROC: 0W3R8ZZ Control Bleeding in Genitourinary Tract, Via Natural or Artificial Opening Endoscopic (ICD-10-PCS; 2019-11-28)
PROC: 0T9B80Z Drainage of Bladder with Drainage Device, Via Natural or Artificial Opening Endoscopic (ICD-10-PCS; 2019-11-28)
PROC: 0TBB8ZZ Excision of Bladder, Via Natural or Artificial Opening Endoscopic (ICD-10-PCS; principal; 2019-11-28 14:00)
DX: T83.020A Displacement of cystostomy catheter, initial encounter (principal); E43 Unspecified severe protein-calorie malnutrition; R53.2 Functional quadriplegia; Z68.1 Body mass index [BMI] 19.9 or less, adult; R64 Cachexia; G35 Multiple sclerosis; N31.9 Neuromuscular dysfunction of bladder, unspecified; R56.9 Unspecified convulsions; R31.0 Gross hematuria; I10 Essential (primary) hypertension; E11.9 Type 2 diabetes mellitus without complications; Y83.9 Surgical procedure, unspecified as the cause of abnormal reaction of the patient, or of later complication, without mention of misadventure at the time of the procedure
CPT/HCPCS: 36415; 71045-TC-FY; 76775-TC; 76856-TC; 80053; 82550; 82962; 83605; 84484; 85025; 87040; 87086; 88305-TC; 93005; 93010; 94760; 99284-25; G0008; J1644; Q2036

== ENCOUNTER 2020-06-01 11:00 | Emergency (ER) | payer OTHER, MEDICARE ==
--- NOTE | 2020-06-01 11:20 | PDOC ---
History of Present Illness - General Chief Complaint: Urinary Catheter Problem Stated Complaint: G TUBE REPLACEMENT Time Seen by Provider: 06/01/20 11:19 History Source: Patient Exam Limitations: No Limitations - History of Present Illness Initial Comments: 06/01/20 11:21 64 y/o woman w/hx MS w chronic contractures, recurrent UTIs w suprapubic catheter p/w purple colored urine. Pt doesn't remember how long the urine has been purple. The patient is unable to make it to her urologist's office because of car troubles and could not afford a cab. Usually seen every 2mo for UTI for drainage problems, last seen 04/05/20 when catheter changed. 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 Denies fever, abd pain, diarrhea. Past History - Medical History Allergies/Adverse Reactions: Allergies Allergy/AdvReac Type Severity Reaction Status Date / Time No Known Allergies Allergy Verified 06/01/20 11:12 Home Medications: Ambulatory Orders Baclofen 20 mg PO DAILY tablet 09/15/14 Divalproex [Depakote -] 500 mg PO DAILY 09/23/18 Lisinopril [Zestril] 2.5 mg PO DAILY 09/23/18 Insulin Sliding Scale [Novolog Vial Sliding Scale -] 1 vial SQ ACHS units 06/24/19 Sulfamethoxazole/Trimethoprim [Bactrim Ds -] 1 tab PO BID #20 tablet 02/10/20 Sulfamethoxazole/Trimethoprim [Bactrim Ds -] 1 tab PO BID #20 tablet 06/01/20 Cardiac Disorders: Yes COPD: No Disorders: Yes (Neurogenic bladder, suprapubic catheter and hx UTI) HTN: Yes Seizures: Yes (LAST- LONG AGO) - Surgical History Cardiac Surgery: Yes (cardiac stents) Orthopedic Surgery: Yes (SHOULDER SX) - Immunization History Immunization Up to Date: Yes - Psycho-Social/Smoking History Smoking History: Never smoked Have you smoked in the past 12 months: No Information on smoking cessation initiated: No - Substance Abuse Hx (Audit-C & DAST Scrn) How often the patient has a drink containing alcohol: Never Score: In Men: 4 or > Positive; In Women: 3 or > Positive: 0 Screen Result (Pos requires Nsg. Audit-10AR): Negative In the last yr the pt used illegal drug/Rx for NonMed reason: No Score: Yes response is considered Positive: 0 Screen Result (Positive result requires Nsg. DAST-10): Negative Review of Systems - Review of Systems Constitutional: No: Chills, Fever HEENTM: No: Eye Pain, Ear Discharge Respiratory: No: Cough, Shortness of Breath Cardiac (ROS): No: Chest Pain, Lightheadedness ABD/GI: No: Abdominal Distended, Nausea, Vomiting : No: Burning, Discharge Musculoskeletal: No: Back Pain, Joint Pain Integumentary: No: Bruising, Dryness Neurological: No: Headache, Seizure Psychiatric: No: Anxiety, Depression Endocrine: No: Intolerance to Cold, Intolerance to Heat Hematologic/Lymphatic: No: Anemia, Blood Clots *Physical Exam - Vital Signs Last Vital Signs Temp Pulse Resp BP Pulse Ox 97.9 F 83 20 156/83 100 06/01/20 11:13 06/01/20 11:13 06/01/20 11:13 06/01/20 11:13 06/01/20 11:13 - Physical Exam General Appearance: Yes: Nourished, Appropriately Dressed, Other (contracted extremities). No: Apparent Distress HEENT: positive: EOMI, CHELSEY, Normal Voice, Hearing Grossly Normal. negative: Scleral Icterus (R), Scleral Icterus (L) Respiratory/Chest: positive: Lungs Clear, Normal Breath Sounds. negative: Chest Tender, Respiratory Distress Cardiovascular: positive: Regular Rhythm, Regular Rate, S1, S2. negative: Edema, Murmur Gastrointestinal/Abdominal: positive: Normal Bowel Sounds, Flat, Soft, Other (suprapubic catheter in place, no erythema/warmth/tender around insertion, dry urosotomy bag w purple tinged tubing). negative: Tender, Organomegaly Musculoskeletal: negative: CVA Tenderness (R), CVA Tenderness (L) Integumentary: positive: Normal Color, Dry, Warm Neurologic: positive: Fully Oriented, Alert, Normal Response ED Treatment Course - LABORATORY CBC & Chemistry Diagram: 06/01/20 17:15 06/01/20 17:15 Medical Decision Making - Medical Decision Making 06/01/20 12:36 64 y/o woman w/hx MS w chronic contractures, recurrent UTIs w suprapubic catheter p/w purple colored urine likely d/t UTI Gave pt >1L PO + IV fluids w no collection in catheter bag d/t fistula w pt urinating into diaper. No evidence of KATIE on labs. Changed suprapubic 24fr catheter w/o complications. Contacted Dr Eller urology - talked to manager occupational , advised treat w bactrim if UTI, change catheter, will f/u Contacted case management - left phone number in pt's discharge paperwork to f/u w them regarding outpatient transportation and insurance DC home w bactrim prescription, urology, case mgmt f/u Discharge - Discharge Information Problems reviewed: Yes Clinical Impression/Diagnosis: Encounter for suprapubic catheter care UTI (urinary tract infection) Qualifiers: Urinary tract infection type: acute cystitis Hematuria presence: without hematuria Qualified Code(s): N30.00 - Acute cystitis without hematuria Condition: Improved Disposition: HOME - Additional Discharge Information Prescriptions: Sulfamethoxazole/Trimethoprim [Bactrim Ds -] 1 tab PO BID #20 tablet - Follow up/Referral Referrals: Rudolph Eller MD [Primary Care Provider] - - Patient Discharge Instructions Patient Printed Discharge Instructions: How to Care for a Suprapubic Catheter Additional Instructions: You have a urine infection. Your catheter was replaced. Take the prescribed antibiotic as directed for your infection. Please follow up with your urologist Dr Eller. Please call case management at [phone] regarding your insurance - Post Discharge Activity
[2020-06-01 11:26] VITALS: BMI 17.2
[2020-06-01] MEDS ORDERED: SODIUM CHLORIDE 1,000 ML IV STA (12:16)
--- NOTE | 2020-06-01 13:04 | PDOC ---
Documentation entered by Kota Elaine SCRIBE, acting as scribe for Yuri Pandey MD. Yuri Pandey MD: This documentation has been prepared by the Chele marshall Nirvannie, SCRIBE, under my direction and personally reviewed by me in its entirety. I confirm that the documentation accurately reflects all work, treatment, procedures, and medical decision making performed by me. Attending Attestation - Resident Resident Name: JorgeJeremy - ED Attending Attestation I have performed the following: I have examined & evaluated the patient, The case was reviewed & discussed with the resident, I agree w/resident's findings & plan, Exceptions are as noted - HPI HPI: 06/01/20 11:35 The patient is a year old female with a significant past medical history of MS (currently retracted; last flare up in the ), s/p cardiac stenting, recurrent UTIs, and neurogenic bladder (suprapubic catheter last changed 04/05/2020 in the ED) who presents to the ED for suprapubic catheter replacement with urine which is tinted purple in coloration. Patient is unable to quantify how long her urine has been that color and notes inability to visit her urologist for an unknown period of time secondary to transportation issues. The patient denies any complaints including fever/chills, n/v, abd pain, back pain, cp, sob. Pt notes that her daugther usually empties her urine out and was the one who noticed the purplish color. Allergies: NKDA - Physicial Exam PE: 06/01/20 13:03 General: No acute distress Abd: soft nontender, suprpaibic cath in place - Medical Decision Making 06/01/20 12:43 64y F hx of MS, neurogenic bladder presents with purplish urine in her bag so was sent to the ER for evaluation by family. No other complaints including fever /chills, n/v. will obtain ua will replace catheter likely colonization, dw urology - if UA suggestive of UTI will treat with abx outpt uro fu 06/01/20 18:49 Patient's labs were reviewed unremarkable. Patient unable to give urine as there is no output from the catheter as the urine is Discharge into her diaper. Will treat with presumptive antibiotics will have the patient follow-up with urology. return precautions were discussed Discharge - Discharge Information Problems reviewed: Yes Clinical Impression/Diagnosis: Encounter for suprapubic catheter care UTI (urinary tract infection) Qualifiers: Urinary tract infection type: acute cystitis Hematuria presence: without hematuria Qualified Code(s): N30.00 - Acute cystitis without hematuria Condition: Improved Disposition: HOME - Additional Discharge Information Prescriptions: Sulfamethoxazole/Trimethoprim [Bactrim Ds -] 1 tab PO BID #20 tablet - Follow up/Referral Referrals: Rudolph Eller MD [Primary Care Provider] - - Patient Discharge Instructions Patient Printed Discharge Instructions: How to Care for a Suprapubic Catheter Additional Instructions: You have a urine infection. Your catheter was replaced. Take the prescribed antibiotic as directed for your infection. Please follow up with your urologist Dr Eller. Please call case management at [phone] regarding your insurance - Post Discharge Activity
[2020-06-01 18:13] LABS: BASO % 1.2 % (0-2.0); EOS % 1.8 % (0-4.5); HEMATOCRIT 26.3 % (32.4-45.2); HEMOGLOBIN 7.9 GM/dL (10.7-15.3); LYMPH % 23.2 % (8-40); MCH 20.9 pg (25.7-33.7); MCHC 30.1 g/dl (32.0-36.0); MEAN CELL VOLUME 69.4 fl (80-96); MEAN PLT VOLUME 7.9 fl (7.5-11.1); MONO % 14.8 % (3.8-10.2); PLATELET COUNT 462 K/MM3 (134-434); RBC 3.79 M/mm3 (3.60-5.2); RDW 18.6 % (11.6-15.6); WHITE BLOOD COUNT 4.6 K/mm3 (4.0-10.0)
[2020-06-01 18:26] LABS: ALBUMIN 2.8 g/dl (3.4-5.0); BILIRUBIN,TOTAL 0.3 mg/dL (0.2-1); BLOOD UREA NITROGEN 6.9 mg/dL (7-18); CALCIUM 9.1 mg/dL (8.5-10.1); CREATININE 0.3 mg/dL (0.55-1.3); POTASSIUM 3.6 mmol/L (3.5-5.1); TOT PROT 7.9 g/dl (6.4-8.2)
[2020-06-01 19:21] LABS: ANISOCYTOSIS 1+; MACROCYTOSIS 0; OVALOCYTE 1+; PLATELET ESTIMATE NORMAL; TEAR DROP CELLS 1+
[2020-06-01 20:38] VITALS: BP 138/90; PULSE 90; TEMP 98.2
== END 2020-06-01 20:40 | disposition home or self-care (01) ==
LOC: JER 11:00 → SUPCPDRO 11:00 → JER 20:40
PROC: 3E0337Z Introduction of Electrolytic and Water Balance Substance into Peripheral Vein, Percutaneous Approach (ICD-10-PCS; principal; 2020-06-01)
DX: N30.00 Acute cystitis without hematuria (principal); N39.0 Urinary tract infection, site not specified
CPT/HCPCS: 36415; 80053; 85025; 99285-25

== ENCOUNTER 2020-10-06 13:38 | Emergency (ER) | payer OTHER, MEDICARE ==
[2020-10-06 14:21] VITALS: TEMP 98.7; BMI 16.6
[2020-10-06 21:27] VITALS: BP 131/77; PULSE 89
== END 2020-10-06 21:20 | disposition home or self-care (01) ==
LOC: JER 13:38
DX: T83.010A Breakdown (mechanical) of cystostomy catheter, initial encounter (principal)
CPT/HCPCS: 51102; 99284-25; A4314

== ENCOUNTER 2020-10-07 09:40 | Emergency (ER) | payer OTHER, MEDICARE ==
[2020-10-07 10:29] VITALS: TEMP 98.7; BMI 16.6
[2020-10-07] MEDS ORDERED: FLU VACCINE (FLULAVAL) PF 60 MCG/0.5 ML SYRINGE 2020-2021 IM ONE ×2 (11:46→12:30)
[2020-10-07 14:21] VITALS: BP 153/88; PULSE 93
== END 2020-10-07 14:28 | disposition home or self-care (01) ==
LOC: JER 09:40
PROC: 3E0234Z Introduction of Serum, Toxoid and Vaccine into Muscle, Percutaneous Approach (ICD-10-PCS; principal; 2020-10-07)
DX: Z48.01 Encounter for change or removal of surgical wound dressing (principal)
CPT/HCPCS: 51102; 99284-25; Q2036

== ENCOUNTER 2021-02-28 11:20 | Inpatient (IN) | payer OTHER, MEDICARE ==
[2021-02-28 12:09] VITALS: BMI 21.4
[2021-02-28 12:46] LABS: BASO % 1.2 % (0-2.0); EOS % 1.5 % (0-4.5); HEMATOCRIT 25.1 % (32.4-45.2); HEMOGLOBIN 7.6 GM/dL (10.7-15.3); LYMPH % 15.9 % (8-40); MCH 21.2 pg (25.7-33.7); MCHC 30.3 g/dl (32.0-36.0); MEAN CELL VOLUME 70.2 fl (80-96); MEAN PLT VOLUME 7.5 fl (7.5-11.1); MONO % 18.3 % (3.8-10.2); NEUT % 63.1 % (42.8-82.8); PLATELET COUNT 403 K/MM3 (134-434); RBC 3.57 M/mm3 (3.60-5.2); RDW 21.5 % (11.6-15.6); WHITE BLOOD COUNT 4.7 K/mm3 (4.0-10.0)
[2021-02-28 13:06] LABS: POTASSIUM 4.4 mmol/L (3.5-5.1)
[2021-02-28 13:08] LABS: ALBUMIN 2.6 g/dl (3.4-5.0); ANISOCYTOSIS 3+; BLOOD UREA NITROGEN 9.7 mg/dL (7-18); CALCIUM 8.8 mg/dL (8.5-10.1); MACROCYTOSIS 0; PLATELET ESTIMATE NORMAL
[2021-02-28 13:11] LABS: CREATININE 0.2 mg/dL (0.55-1.3)
[2021-02-28 13:12] LABS: BILIRUBIN,TOTAL 0.3 mg/dL (0.2-1)
[2021-02-28 13:13] LABS: TOT PROT 7.7 g/dl (6.4-8.2)
[2021-03-01] MEDS ORDERED: ENOXAPARIN NA (PORCINE) 40 MG/0.4 ML DISP.SYRIN SQ ONE (07:50)
[2021-03-01] MEDS ORDERED: LISINOPRIL 5 MG TABLET ONE (07:50)
[2021-03-01 07:53] LABS: BASO % 1.4 % (0-2.0); EOS % 2.1 % (0-4.5); HEMATOCRIT 26.1 % (32.4-45.2); HEMOGLOBIN 7.9 GM/dL (10.7-15.3); LYMPH % 18.9 % (8-40); MCH 21.5 pg (25.7-33.7); MCHC 30.3 g/dl (32.0-36.0); MEAN CELL VOLUME 71.1 fl (80-96); MEAN PLT VOLUME 7.6 fl (7.5-11.1); NEUT % 63.6 % (42.8-82.8); PLATELET COUNT 383 K/MM3 (134-434); RBC 3.68 M/mm3 (3.60-5.2); RDW 22.3 % (11.6-15.6); WHITE BLOOD COUNT 4.2 K/mm3 (4.0-10.0)
[2021-03-01 08:05] LABS: POTASSIUM 4.3 mmol/L (3.5-5.1)
[2021-03-01 08:15] LABS: CALCIUM 9.1 mg/dL (8.5-10.1)
[2021-03-01 08:16] LABS: ALBUMIN 2.7 g/dl (3.4-5.0); BLOOD UREA NITROGEN 7.4 mg/dL (7-18)
[2021-03-01 08:19] LABS: CREATININE 0.3 mg/dL (0.55-1.3)
[2021-03-01 08:20] LABS: BILIRUBIN,TOTAL 0.4 mg/dL (0.2-1)
[2021-03-01] MEDS: LISINOPRIL 5 MG TABLET PO SCH (10:30)
[2021-03-01] MEDS: ENOXAPARIN NA (PORCINE) 40 MG/0.4 ML DISP.SYRIN SQ SCH (10:30)
[2021-03-01] MEDS ORDERED: IRON SUCROSE INJECTION 100 MG in SODIUM CHLORIDE 95 ML IVPB ONE (13:57)
[2021-03-02] MEDS: ENOXAPARIN NA (PORCINE) 40 MG/0.4 ML DISP.SYRIN SQ SCH (09:20)
[2021-03-02] MEDS: LISINOPRIL 5 MG TABLET PO SCH (09:20)
[2021-03-02] MEDS ORDERED: IRON SUCROSE INJECTION 100 MG in SODIUM CHLORIDE 95 ML IVPB ONE (12:00)
[2021-03-02] MEDS ORDERED: ACETAMINOPHEN 325 MG TABLET (FP) PO PRN (17:20)
[2021-03-02] MEDS ORDERED: cefTRIAXone SODIUM 1 GM VIAL ONE (18:44)
[2021-03-02] MEDS ORDERED: DEXTROSE 5%-WATER - 50 ML IVPB ONE (18:44)
[2021-03-02] MEDS: CEFTRIAXONE 1 GM in DEXTROSE 5%-WATER - 50 ML IVPB SCH (18:48)
[2021-03-03 08:03] LABS: BASO % 0.6 % (0-2.0); EOS % 0.7 % (0-4.5); HEMATOCRIT 25.5 % (32.4-45.2); HEMOGLOBIN 7.9 GM/dL (10.7-15.3); LYMPH % 8.5 % (8-40); MCH 22.1 pg (25.7-33.7); MEAN CELL VOLUME 71.3 fl (80-96); MEAN PLT VOLUME 7.9 fl (7.5-11.1); MONO % 21.5 % (3.8-10.2); NEUT % 68.7 % (42.8-82.8); PLATELET COUNT 390 K/MM3 (134-434); RBC 3.58 M/mm3 (3.60-5.2); RDW 21.7 % (11.6-15.6); WHITE BLOOD COUNT 4.8 K/mm3 (4.0-10.0)
[2021-03-03 08:17] LABS: ALBUMIN 2.6 g/dl (3.4-5.0); BLOOD UREA NITROGEN 8.5 mg/dL (7-18); CALCIUM 8.9 mg/dL (8.5-10.1)
[2021-03-03 08:20] LABS: CREATININE 0.3 mg/dL (0.55-1.3)
[2021-03-03 08:21] LABS: BILIRUBIN,TOTAL 0.4 mg/dL (0.2-1)
[2021-03-03 08:22] LABS: TOT PROT 7.6 g/dl (6.4-8.2)
[2021-03-03] MEDS ORDERED: cefTRIAXone SODIUM 1 GM VIAL ONE (09:24)
[2021-03-03] MEDS: LISINOPRIL 5 MG TABLET PO SCH (09:32)
[2021-03-03] MEDS: ENOXAPARIN NA (PORCINE) 40 MG/0.4 ML DISP.SYRIN SQ SCH (09:32)
[2021-03-03 10:18] LABS: ANISOCYTOSIS 1+; MACROCYTOSIS 0; OVALOCYTE 1+; PLATELET ESTIMATE NORMAL; TEAR DROP CELLS 1+
[2021-03-03] MEDS: CEFTRIAXONE 1 GM in DEXTROSE 5%-WATER - 50 ML IVPB SCH (10:23)
[2021-03-04 07:21] LABS: POTASSIUM 4.2 mmol/L (3.5-5.1)
[2021-03-04 07:25] LABS: BASO % 1.1 % (0-2.0); EOS % 1.8 % (0-4.5); HEMATOCRIT 25.1 % (32.4-45.2); HEMOGLOBIN 7.7 GM/dL (10.7-15.3); LYMPH % 20.4 % (8-40); MCH 22.1 pg (25.7-33.7); MCHC 30.5 g/dl (32.0-36.0); MEAN CELL VOLUME 72.3 fl (80-96); MEAN PLT VOLUME 7.8 fl (7.5-11.1); MONO % 24.7 % (3.8-10.2); PLATELET COUNT 377 K/MM3 (134-434); RBC 3.48 M/mm3 (3.60-5.2); RDW 22.2 % (11.6-15.6)
[2021-03-04 07:30] LABS: ALBUMIN 2.6 g/dl (3.4-5.0)
[2021-03-04 07:33] LABS: CREATININE 0.3 mg/dL (0.55-1.3)
[2021-03-04 07:35] LABS: BILIRUBIN,TOTAL 0.3 mg/dL (0.2-1); TOT PROT 7.4 g/dl (6.4-8.2)
[2021-03-04] MEDS ORDERED: cefTRIAXone SODIUM 1 GM VIAL ONE (08:59)
[2021-03-04] MEDS ORDERED: DEXTROSE 5%-WATER - 50 ML IVPB ONE (08:59)
[2021-03-04] MEDS: LISINOPRIL 5 MG TABLET PO SCH (09:01)
[2021-03-04] MEDS: ENOXAPARIN NA (PORCINE) 40 MG/0.4 ML DISP.SYRIN SQ SCH (09:02)
[2021-03-04] MEDS: CEFTRIAXONE 1 GM in DEXTROSE 5%-WATER - 50 ML IVPB SCH (09:02)
[2021-03-04 09:27] LABS: ANISOCYTOSIS 2+; MACROCYTOSIS 0; PLATELET ESTIMATE NORMAL
[2021-03-05] MEDS ORDERED: cefTRIAXone SODIUM 1 GM VIAL ONE (09:15)
[2021-03-05] MEDS ORDERED: DEXTROSE 5%-WATER - 50 ML IVPB ONE (09:15)
[2021-03-05] MEDS: ENOXAPARIN NA (PORCINE) 40 MG/0.4 ML DISP.SYRIN SQ SCH (09:23)
[2021-03-05] MEDS: LISINOPRIL 5 MG TABLET PO SCH (09:23)
[2021-03-05] MEDS: CEFTRIAXONE 1 GM in DEXTROSE 5%-WATER - 50 ML IVPB SCH (09:24)
[2021-03-05 11:18] VITALS: BP 104/60; PULSE 108; TEMP 98.1
== END 2021-03-05 11:00 | disposition home health service (06) | DRG 698 ==
LOC: JER 11:20 → JERBED 14:38 → J4S 03-01 11:08
PROVIDERS: ADMIT Internal Medicine; ATTEND Internal Medicine
PROC: 0T2BX0Z Change Drainage Device in Bladder, External Approach (ICD-10-PCS; principal; 2021-03-02)
DX: T83.010A Breakdown (mechanical) of cystostomy catheter, initial encounter (principal); R53.2 Functional quadriplegia; R64 Cachexia; E11.9 Type 2 diabetes mellitus without complications; I10 Essential (primary) hypertension; K59.00 Constipation, unspecified; G35 Multiple sclerosis; Y83.8 Other surgical procedures as the cause of abnormal reaction of the patient, or of later complication, without mention of misadventure at the time of the procedure; D50.9 Iron deficiency anemia, unspecified; N31.9 Neuromuscular dysfunction of bladder, unspecified; Z68.21 Body mass index [BMI] 21.0-21.9, adult
CPT/HCPCS: 36415; 71045-TC-FY; 80053; 82728; 83010; 83540; 83550; 83615; 85025; 85045; 87040; 93005; 93010; 99285-25; C9803; J1756; U0003; U0005

== ENCOUNTER 2021-05-03 12:57 | Inpatient (IN) | payer OTHER, MEDICARE ==
[2021-05-03] MEDS ORDERED: ACETAMINOPHEN 500 MG TABLET (FP) PO ONE (13:47)
[2021-05-03] MEDS ORDERED: ACETAMINOPHEN 325 MG TABLET (FP) ONE (13:55)
[2021-05-03 15:16] LABS: BASO % 0.9 % (0-2.0); EOS % 2.2 % (0-4.5); HEMATOCRIT 30.2 % (32.4-45.2); HEMOGLOBIN 9.6 GM/dL (10.7-15.3); LYMPH % 23.4 % (8-40); MCH 22.4 pg (25.7-33.7); MCHC 31.7 g/dl (32.0-36.0); MEAN CELL VOLUME 70.6 fl (80-96); MEAN PLT VOLUME 7.5 fl (7.5-11.1); MONO % 19.8 % (3.8-10.2); NEUT % 53.7 % (42.8-82.8); PLATELET COUNT 426 K/MM3 (134-434); RBC 4.28 M/mm3 (3.60-5.2); RDW 22.2 % (11.6-15.6); WHITE BLOOD COUNT 4.1 K/mm3 (4.0-10.0)
[2021-05-03 15:21] LABS: INR 1.12 (0.83-1.09); PROTHROMBIN TIME (PATIENT) 13.5 SEC (9.7-13.0)
[2021-05-03 15:26] LABS: CALCIUM 9.4 mg/dL (8.5-10.1)
[2021-05-03 15:27] LABS: ALBUMIN 2.8 g/dl (3.4-5.0); BLOOD UREA NITROGEN 9.9 mg/dL (7-18)
[2021-05-03 15:30] LABS: CREATININE 0.3 mg/dL (0.55-1.3)
[2021-05-03 15:32] LABS: BILIRUBIN,TOTAL 0.3 mg/dL (0.2-1); TOT PROT 8.6 g/dl (6.4-8.2)
[2021-05-03] MEDS ORDERED: SODIUM CHLORIDE 0.9% 500 ML INFUS.BAG IV ONE (16:19)
[2021-05-03 17:56] LABS: ANISOCYTOSIS 3+; MACROCYTOSIS 2+
[2021-05-03] MEDS ORDERED: CEFTRIAXONE 1 GM in DEXTROSE 5%-WATER - 100 ML IVPB ONE (19:07)
[2021-05-03] MEDS ORDERED: CEFTRIAXONE 1 GM/50 ML BAG ONE ×2 (19:35→19:42)
[2021-05-03] MEDS ORDERED: LINEZOLID 600 MG PREMIX BAG 600 MG/300 ML BAG IVPB SCH (22:00)
[2021-05-03] MEDS ORDERED: ENOXAPARIN NA (PORCINE) 40 MG/0.4 ML DISP.SYRIN SQ ONE (22:26)
[2021-05-03] MEDS: LINEZOLID 600 MG PREMIX BAG 600 MG/300 ML BAG IVPB SCH (22:42)
[2021-05-03] MEDS: ENOXAPARIN NA (PORCINE) 40 MG/0.4 ML DISP.SYRIN SQ SCH (22:42)
[2021-05-03] MEDS ORDERED: SODIUM CHLORIDE 1,000 ML IV SCH (23:45)
[2021-05-04] MEDS ORDERED: CEFTRIAXONE 1 GM in DEXTROSE 5%-WATER - 50 ML IVPB SCH (10:00)
[2021-05-04] MEDS ORDERED: DEXTROSE 5%-WATER - 50 ML IVPB ONE (12:03)
[2021-05-04] MEDS ORDERED: cefTRIAXone SODIUM 1 GM VIAL ONE (12:03)
[2021-05-04] MEDS: ENOXAPARIN NA (PORCINE) 40 MG/0.4 ML DISP.SYRIN SQ SCH (12:27)
[2021-05-04] MEDS: LINEZOLID 600 MG PREMIX BAG 600 MG/300 ML BAG IVPB SCH (13:31)
[2021-05-04 14:36] LABS: HEMATOCRIT 28.4 % (32.4-45.2); HEMOGLOBIN 8.7 GM/dL (10.7-15.3); LYMPH % 21.2 % (8-40); MCH 21.9 pg (25.7-33.7); MCHC 30.7 g/dl (32.0-36.0); MEAN CELL VOLUME 71.2 fl (80-96); MEAN PLT VOLUME 7.8 fl (7.5-11.1); MONO % 18.5 % (3.8-10.2); NEUT % 56.3 % (42.8-82.8); PLATELET COUNT 387 K/MM3 (134-434); RBC 3.98 M/mm3 (3.60-5.2); RDW 22.1 % (11.6-15.6); WHITE BLOOD COUNT 2.9 K/mm3 (4.0-10.0)
[2021-05-04 15:14] LABS: ALBUMIN 2.6 g/dl (3.4-5.0); BLOOD UREA NITROGEN 4.6 mg/dL (7-18); CALCIUM 8.5 mg/dL (8.5-10.1); MAGNESIUM 1.9 mg/dL (1.8-2.4)
[2021-05-04 15:17] LABS: CREATININE 0.2 mg/dL (0.55-1.3)
[2021-05-04 15:18] LABS: BILIRUBIN,TOTAL 0.3 mg/dL (0.2-1)
[2021-05-04 15:19] LABS: TOT PROT 7.7 g/dl (6.4-8.2)
[2021-05-05 08:37] LABS: BASO % 1.1 % (0-2.0); EOS % 1.9 % (0-4.5); HEMATOCRIT 28.7 % (32.4-45.2); LYMPH % 15.3 % (8-40); MCH 22.1 pg (25.7-33.7); MCHC 31.2 g/dl (32.0-36.0); MEAN CELL VOLUME 70.6 fl (80-96); MEAN PLT VOLUME 7.2 fl (7.5-11.1); MONO % 12.8 % (3.8-10.2); NEUT % 68.9 % (42.8-82.8); PLATELET COUNT 392 K/MM3 (134-434); RBC 4.06 M/mm3 (3.60-5.2); RDW 21.8 % (11.6-15.6); WHITE BLOOD COUNT 3.8 K/mm3 (4.0-10.0)
[2021-05-05 09:00] LABS: ALBUMIN 2.6 g/dl (3.4-5.0); BLOOD UREA NITROGEN 3.8 mg/dL (7-18); CALCIUM 8.8 mg/dL (8.5-10.1)
[2021-05-05 09:03] LABS: CREATININE 0.2 mg/dL (0.55-1.3)
[2021-05-05 09:05] LABS: BILIRUBIN,TOTAL 0.4 mg/dL (0.2-1); TOT PROT 7.7 g/dl (6.4-8.2)
[2021-05-05] MEDS: ENOXAPARIN NA (PORCINE) 40 MG/0.4 ML DISP.SYRIN SQ SCH (10:32)
[2021-05-05] MEDS: LISINOPRIL 5 MG TABLET PO SCH (10:37)
[2021-05-05] MEDS ORDERED: POTASSIUM CHLORIDE TABS 20 MEQ TABLET.ER (FP) PO ONE (13:30)
[2021-05-05] MEDS ORDERED: BACLOFEN 10 MG TABLET (FP) PO SCH (17:30)
[2021-05-05] MEDS: ESCITALOPRAM OXALATE 10 MG TABLET PO SCH (21:29)
[2021-05-06 09:06] LABS: BASO % 0.4 % (0-2.0); EOS % 0.7 % (0-4.5); HEMATOCRIT 30.6 % (32.4-45.2); HEMOGLOBIN 9.2 GM/dL (10.7-15.3); LYMPH % 14.7 % (8-40); MCH 21.6 pg (25.7-33.7); MCHC 30.2 g/dl (32.0-36.0); MEAN CELL VOLUME 71.4 fl (80-96); MEAN PLT VOLUME 7.5 fl (7.5-11.1); MONO % 17.4 % (3.8-10.2); NEUT % 66.8 % (42.8-82.8); PLATELET COUNT 355 K/MM3 (134-434); RBC 4.28 M/mm3 (3.60-5.2); RDW 21.5 % (11.6-15.6); WHITE BLOOD COUNT 7.1 K/mm3 (4.0-10.0)
[2021-05-06 09:34] LABS: ALBUMIN 2.6 g/dl (3.4-5.0); CALCIUM 8.7 mg/dL (8.5-10.1)
[2021-05-06 09:35] LABS: MAGNESIUM 1.9 mg/dL (1.8-2.4)
[2021-05-06 09:38] LABS: CREATININE 0.3 mg/dL (0.55-1.3); PHOSPHOROUS 2.9 mg/dL (2.5-4.9)
[2021-05-06 09:41] LABS: BILIRUBIN,TOTAL 0.3 mg/dL (0.2-1)
[2021-05-06] MEDS: LISINOPRIL 5 MG TABLET PO SCH (10:17)
[2021-05-06] MEDS: ESCITALOPRAM OXALATE 10 MG TABLET PO SCH ×2 (10:17→21:51)
[2021-05-06] MEDS: ENOXAPARIN NA (PORCINE) 40 MG/0.4 ML DISP.SYRIN SQ SCH (10:18)
[2021-05-06] MEDS: BACLOFEN 10 MG TABLET (FP) PO SCH ×2 (10:18→19:56)
[2021-05-07] MEDS: ACETAMINOPHEN 325 MG TABLET (FP) PO PRN (00:53)
[2021-05-07] MEDS ORDERED: SODIUM CHLORIDE 500 ML IV STA (07:11)
[2021-05-07] MEDS: BACLOFEN 10 MG TABLET (FP) PO SCH ×2 (08:45→17:03)
[2021-05-07] MEDS: ESCITALOPRAM OXALATE 10 MG TABLET PO SCH ×2 (09:53→21:04)
[2021-05-07] MEDS: LISINOPRIL 5 MG TABLET PO SCH (09:53)
[2021-05-07 09:56] LABS: EPI CELLS 7 /uL (0-25.1); HYALINE CASTS 6 /uL (0-3.1); URINE APPEARANCE TURBID; URINE BACTERIA 2167 /uL (0-1359); URINE BILIRUBIN NEGATIVE (NEGATIVE); URINE COLOR YELLOW; URINE GLUCOSE (UA) NEGATIVE (NEGATIVE); URINE KETONE NEGATIVE (NEGATIVE); URINE LEUK ESTERASE 3+ (NEGATIVE); URINE NITRITE NEGATIVE (NEGATIVE); URINE PROTEIN 2+ (NEGATIVE); URINE UROBILINOGEN 0.2 mg/dL (0.2-1.0); URINE WBC 6978 /uL (0-25.8)
[2021-05-07] MEDS: ENOXAPARIN NA (PORCINE) 40 MG/0.4 ML DISP.SYRIN SQ SCH (09:57)
[2021-05-07] MEDS ORDERED: cefTRIAXone SODIUM 1 GM VIAL ONE (12:59)
[2021-05-07] MEDS ORDERED: DEXTROSE 5%-WATER - 50 ML IVPB ONE (13:00)
[2021-05-07] MEDS: CEFTRIAXONE 1 GM in DEXTROSE 5%-WATER - 50 ML IVPB SCH (13:01)
[2021-05-07] MEDS ORDERED: SODIUM CHLORIDE 1,000 ML IV SCH ×2 (16:30)
[2021-05-08] MEDS: ACETAMINOPHEN 325 MG TABLET (FP) PO PRN (01:42)
[2021-05-08] MEDS ORDERED: ACETAMINOPHEN 1000 MG/100 ML VIAL (NON FORMULARY) IVPB PRN ×2 (02:00→02:07)
[2021-05-08] MEDS ORDERED: SODIUM CHLORIDE 500 ML IV STA (05:53)
[2021-05-08] MEDS: BACLOFEN 10 MG TABLET (FP) PO SCH ×2 (07:55→17:35)
[2021-05-08 08:52] LABS: HEMATOCRIT 30.7 % (32.4-45.2); MCH 21.1 pg (25.7-33.7); MCHC 29.5 g/dl (32.0-36.0); MEAN CELL VOLUME 71.7 fl (80-96); MEAN PLT VOLUME 7.2 fl (7.5-11.1); PLATELET COUNT 294 K/MM3 (134-434); RBC 4.28 M/mm3 (3.60-5.2); RDW 22.2 % (11.6-15.6); WHITE BLOOD COUNT 11.4 K/mm3 (4.0-10.0)
[2021-05-08 09:07] LABS: BLOOD UREA NITROGEN 11.9 mg/dL (7-18); CALCIUM 8.4 mg/dL (8.5-10.1)
[2021-05-08 09:08] LABS: MAGNESIUM 2.2 mg/dL (1.8-2.4)
[2021-05-08 09:10] LABS: CREATININE 0.4 mg/dL (0.55-1.3)
[2021-05-08 09:11] LABS: PHOSPHOROUS 2.6 mg/dL (2.5-4.9)
[2021-05-08] MEDS ORDERED: cefTRIAXone SODIUM 1 GM VIAL ONE (09:51)
[2021-05-08] MEDS ORDERED: DEXTROSE 5%-WATER - 50 ML IVPB ONE ×2 (09:52→17:26)
[2021-05-08] MEDS: ESCITALOPRAM OXALATE 10 MG TABLET PO SCH ×2 (09:54→21:30)
[2021-05-08] MEDS: ENOXAPARIN NA (PORCINE) 40 MG/0.4 ML DISP.SYRIN SQ SCH (09:54)
[2021-05-08] MEDS: CEFTRIAXONE 1 GM in DEXTROSE 5%-WATER - 50 ML IVPB SCH (09:55)
[2021-05-08] MEDS: LISINOPRIL 5 MG TABLET PO SCH (09:55)
[2021-05-08] MEDS: SODIUM CHLORIDE 1,000 ML IV SCH (11:56)
[2021-05-08] MEDS ORDERED: PIPERACILLIN/TAZOBACTAM 3.375 GM VIAL IVPB ONE (17:26)
[2021-05-08] MEDS: PIPERACILLIN/TAZOB 3.375 GM 3.375 GM in DEXTROSE 5%-WATER - 50 ML IVPB SCH (17:35)
[2021-05-09] MEDS ORDERED: DEXTROSE 5%-WATER - 50 ML IVPB ONE ×3 (01:44→16:54)
[2021-05-09] MEDS ORDERED: PIPERACILLIN/TAZOBACTAM 3.375 GM VIAL IVPB ONE ×3 (01:44→16:54)
[2021-05-09] MEDS: PIPERACILLIN/TAZOB 3.375 GM 3.375 GM in DEXTROSE 5%-WATER - 50 ML IVPB SCH ×3 (01:53→17:23)
[2021-05-09] MEDS: SODIUM CHLORIDE 1,000 ML IV SCH ×4 (01:54→21:07)
[2021-05-09] MEDS: BACLOFEN 10 MG TABLET (FP) PO SCH ×2 (08:38→17:24)
[2021-05-09 08:53] LABS: BASO % 0.4 % (0-2.0); EOS % 2.4 % (0-4.5); HEMATOCRIT 27.1 % (32.4-45.2); HEMOGLOBIN 8.2 GM/dL (10.7-15.3); LYMPH % 5.2 % (8-40); MCH 21.5 pg (25.7-33.7); MCHC 30.1 g/dl (32.0-36.0); MEAN CELL VOLUME 71.2 fl (80-96); MEAN PLT VOLUME 7.9 fl (7.5-11.1); MONO % 13.5 % (3.8-10.2); NEUT % 78.5 % (42.8-82.8); PLATELET COUNT 286 K/MM3 (134-434); RBC 3.81 M/mm3 (3.60-5.2); WHITE BLOOD COUNT 8.6 K/mm3 (4.0-10.0)
[2021-05-09 09:06] LABS: CHLORIDE 110 mmol/L (98-107); SODIUM 143 mmol/L (136-145)
[2021-05-09] MEDS: ENOXAPARIN NA (PORCINE) 40 MG/0.4 ML DISP.SYRIN SQ SCH (09:15)
[2021-05-09] MEDS: ESCITALOPRAM OXALATE 10 MG TABLET PO SCH ×2 (09:15→22:08)
[2021-05-09] MEDS: LISINOPRIL 5 MG TABLET PO SCH (09:15)
[2021-05-09 09:18] LABS: BLOOD UREA NITROGEN 7.2 mg/dL (7-18); CALCIUM 8.1 mg/dL (8.5-10.1); CO2 24 mmol/L (21-32); GLUCOSE,RANDOM 79 mg/dL (74-106)
[2021-05-09 09:21] LABS: CREATININE 0.2 mg/dL (0.55-1.3)
[2021-05-09 09:28] LABS: ANION GAP 10 MMOL/L (8-16)
[2021-05-09] MEDS ORDERED: POTASSIUM CHLORIDE ORAL LIQUID 20 MEQ/15 ML PO ONE (10:26)
[2021-05-09] MEDS: KCL 10 MEQ IVPB 10 MEQ/100 ML INFUS.BAG IVPB SCH ×3 (10:52→13:39)
[2021-05-09 11:00] LABS: MAGNESIUM 1.8 mg/dL (1.8-2.4)
[2021-05-10] MEDS ORDERED: DEXTROSE 5%-WATER - 50 ML IVPB ONE ×3 (02:09→17:21)
[2021-05-10] MEDS ORDERED: PIPERACILLIN/TAZOBACTAM 3.375 GM VIAL IVPB ONE ×3 (02:09→17:21)
[2021-05-10] MEDS: PIPERACILLIN/TAZOB 3.375 GM 3.375 GM in DEXTROSE 5%-WATER - 50 ML IVPB SCH ×3 (02:17→18:01)
[2021-05-10 08:15] LABS: HEMATOCRIT 25.6 % (32.4-45.2); HEMOGLOBIN 7.9 GM/dL (10.7-15.3); MCH 21.8 pg (25.7-33.7); MEAN CELL VOLUME 70.2 fl (80-96); MEAN PLT VOLUME 7.8 fl (7.5-11.1); PLATELET COUNT 272 10^3/uL (134-434); RBC 3.64 M/mm3 (3.60-5.2); RDW 21.5 % (11.6-15.6); WHITE BLOOD COUNT 6.1 K/mm3 (4.0-10.0)
[2021-05-10] MEDS: BACLOFEN 10 MG TABLET (FP) PO SCH ×2 (08:39→18:01)
[2021-05-10] MEDS: SODIUM CHLORIDE 1,000 ML IV SCH (08:39)
[2021-05-10 08:48] LABS: BLOOD UREA NITROGEN 6.2 mg/dL (7-18); MAGNESIUM 1.7 mg/dL (1.8-2.4)
[2021-05-10 08:51] LABS: CREATININE 0.2 mg/dL (0.55-1.3); PHOSPHOROUS 1.7 mg/dL (2.5-4.9)
[2021-05-10] MEDS ORDERED: POTASSIUM CHLORIDE ORAL LIQUID 20 MEQ/15 ML PO ONE ×2 (09:49→16:22)
[2021-05-10] MEDS: LISINOPRIL 5 MG TABLET PO SCH (11:06)
[2021-05-10] MEDS: ESCITALOPRAM OXALATE 10 MG TABLET PO SCH ×2 (11:06→23:30)
[2021-05-10] MEDS: SODIUM CHLORIDE 0.45%/POT 20 MEQ/1,000 ML INFUS.BAG IV SCH ×2 (11:12→23:29)
[2021-05-10] MEDS: ENOXAPARIN NA (PORCINE) 30 MG/0.3 ML DISP.SYRIN SQ SCH (12:00)
[2021-05-10 16:07] LABS: CALCIUM 8.1 mg/dL (8.5-10.1)
[2021-05-10 16:08] LABS: BLOOD UREA NITROGEN 5.6 mg/dL (7-18)
[2021-05-10 16:11] LABS: CREATININE 0.3 mg/dL (0.55-1.3)
[2021-05-10] MEDS ORDERED: POTASSIUM CHLORIDE TABS 20 MEQ TABLET.ER (FP) PO ONE (17:19)
[2021-05-10] MEDS ORDERED: MAGNESIUM OXIDE 400 MG TABLET (FP) PO ONE (17:19)
[2021-05-10] MEDS: AMINO ACIDS/PROTEIN HYDROLYS 30 ML LIQUID.PKT PO SCH (18:01)
[2021-05-10 20:37] VITALS: BMI 14.2
[2021-05-10] MEDS ORDERED: SENNOSIDES 8.6MG TABLET (FP) PO ONE (23:05)
[2021-05-10] MEDS: NAPH,MB-DB/K PH,MBDB POWDER PACKET PO SCH (23:30)
[2021-05-11] MEDS ORDERED: DEXTROSE 5%-WATER - 50 ML IVPB ONE ×3 (02:34→16:34)
[2021-05-11] MEDS ORDERED: PIPERACILLIN/TAZOBACTAM 3.375 GM VIAL IVPB ONE ×3 (02:34→16:34)
[2021-05-11] MEDS: PIPERACILLIN/TAZOB 3.375 GM 3.375 GM in DEXTROSE 5%-WATER - 50 ML IVPB SCH ×3 (02:36→17:07)
[2021-05-11] MEDS: AMINO ACIDS/PROTEIN HYDROLYS 30 ML LIQUID.PKT PO SCH ×2 (08:23→17:08)
[2021-05-11] MEDS: BACLOFEN 10 MG TABLET (FP) PO SCH ×2 (08:23→17:08)
[2021-05-11 08:39] LABS: BASO % 0.4 % (0-2.0); EOS % 5.4 % (0-4.5); HEMATOCRIT 25.9 % (32.4-45.2); HEMOGLOBIN 7.8 GM/dL (10.7-15.3); LYMPH % 11.3 % (8-40); MCH 21.6 pg (25.7-33.7); MCHC 30.1 g/dl (32.0-36.0); MEAN CELL VOLUME 71.6 fl (80-96); MEAN PLT VOLUME 8.1 fl (7.5-11.1); MONO % 8.6 % (3.8-10.2); NEUT % 74.3 % (42.8-82.8); PLATELET COUNT 251 10^3/uL (134-434); RBC 3.62 M/mm3 (3.60-5.2); RDW 22.3 % (11.6-15.6)
[2021-05-11 09:08] LABS: BLOOD UREA NITROGEN 6.2 mg/dL (7-18); CALCIUM 8.3 mg/dL (8.5-10.1); MAGNESIUM 1.8 mg/dL (1.8-2.4)
[2021-05-11 09:11] LABS: CREATININE 0.2 mg/dL (0.55-1.3); PHOSPHOROUS 1.6 mg/dL (2.5-4.9)
[2021-05-11 09:13] LABS: BILIRUBIN,TOTAL 0.4 mg/dL (0.2-1); TOT PROT 6.4 g/dl (6.4-8.2)
[2021-05-11 09:34] LABS: PLATELET ESTIMATE NORMAL
[2021-05-11] MEDS: ENOXAPARIN NA (PORCINE) 30 MG/0.3 ML DISP.SYRIN SQ SCH (10:33)
[2021-05-11] MEDS: NAPH,MB-DB/K PH,MBDB POWDER PACKET PO SCH ×2 (10:33→21:49)
[2021-05-11] MEDS: LISINOPRIL 5 MG TABLET PO SCH (10:33)
[2021-05-11] MEDS: ESCITALOPRAM OXALATE 10 MG TABLET PO SCH (10:33)
[2021-05-11] MEDS: SODIUM CHLORIDE 0.45%/POT 20 MEQ/1,000 ML INFUS.BAG IV SCH (10:34)
[2021-05-11] MEDS ORDERED: SODIUM CHLORIDE 0.45%/POT 20 MEQ/1,000 ML INFUS.BAG IV SCH (17:52)
[2021-05-11] MEDS ORDERED: MIRTAZAPINE 15 MG TABLET (FP) PO SCH (22:00)
[2021-05-11] MEDS ORDERED: DOCUSATE SODIUM 100 MG CAPSULE (FP) PO ONE (23:04)
[2021-05-12] MEDS ORDERED: PIPERACILLIN/TAZOBACTAM 3.375 GM VIAL IVPB ONE ×2 (01:37→10:17)
[2021-05-12] MEDS ORDERED: DEXTROSE 5%-WATER - 50 ML IVPB ONE ×2 (01:37→10:17)
[2021-05-12] MEDS: PIPERACILLIN/TAZOB 3.375 GM 3.375 GM in DEXTROSE 5%-WATER - 50 ML IVPB SCH ×2 (01:59→10:26)
[2021-05-12 08:18] LABS: ALBUMIN 2.4 g/dl (3.4-5.0); BLOOD UREA NITROGEN 7.2 mg/dL (7-18); CALCIUM 8.7 mg/dL (8.5-10.1); MAGNESIUM 1.9 mg/dL (1.8-2.4)
[2021-05-12 08:21] LABS: CREATININE 0.3 mg/dL (0.55-1.3)
[2021-05-12 08:22] LABS: PHOSPHOROUS 2.9 mg/dL (2.5-4.9)
[2021-05-12 08:23] LABS: BILIRUBIN,TOTAL 0.5 mg/dL (0.2-1); TOT PROT 7.2 g/dl (6.4-8.2)
[2021-05-12 08:33] LABS: BASO % 0.4 % (0-2.0); EOS % 2.8 % (0-4.5); HEMATOCRIT 29.2 % (32.4-45.2); HEMOGLOBIN 8.9 GM/dL (10.7-15.3); LYMPH % 12.2 % (8-40); MCH 21.5 pg (25.7-33.7); MCHC 30.5 g/dl (32.0-36.0); MEAN CELL VOLUME 70.5 fl (80-96); MEAN PLT VOLUME 7.7 fl (7.5-11.1); NEUT % 75.6 % (42.8-82.8); PLATELET COUNT 312 10^3/uL (134-434); RBC 4.15 M/mm3 (3.60-5.2); RDW 21.7 % (11.6-15.6); WHITE BLOOD COUNT 7.9 K/mm3 (4.0-10.0)
[2021-05-12] MEDS: BACLOFEN 10 MG TABLET (FP) PO SCH ×2 (10:27→16:45)
[2021-05-12] MEDS: ENOXAPARIN NA (PORCINE) 30 MG/0.3 ML DISP.SYRIN SQ SCH (10:27)
[2021-05-12] MEDS: AMINO ACIDS/PROTEIN HYDROLYS 30 ML LIQUID.PKT PO SCH ×2 (10:27→16:46)
[2021-05-12] MEDS: NAPH,MB-DB/K PH,MBDB POWDER PACKET PO SCH (10:27)
[2021-05-12] MEDS: LISINOPRIL 5 MG TABLET PO SCH (10:28)
[2021-05-12 14:42] VITALS: BP 144/92; PULSE 102; TEMP 98.2
== END 2021-05-12 22:00 | disposition home or self-care (01) | DRG 698 ==
LOC: JER 12:57 → JERBED 15:32 → J6S 05-04 02:13
PROVIDERS: ADMIT Internal Medicine; ATTEND Internal Medicine
PROC: 0TPBX0Z Removal of Drainage Device from Bladder, External Approach (ICD-10-PCS; principal; 2021-05-04)
PROC: 0T9B30Z Drainage of Bladder with Drainage Device, Percutaneous Approach (ICD-10-PCS; 2021-05-04)
DX: T83.020A Displacement of cystostomy catheter, initial encounter (principal); J69.0 Pneumonitis due to inhalation of food and vomit; R53.2 Functional quadriplegia; E43 Unspecified severe protein-calorie malnutrition; A41.9 Sepsis, unspecified organism; N39.0 Urinary tract infection, site not specified; Z68.1 Body mass index [BMI] 19.9 or less, adult; R64 Cachexia; G35 Multiple sclerosis; D64.9 Anemia, unspecified; N31.9 Neuromuscular dysfunction of bladder, unspecified; R13.10 Dysphagia, unspecified; Z74.01 Bed confinement status; I25.10 Atherosclerotic heart disease of native coronary artery without angina pectoris; Y84.6 Urinary catheterization as the cause of abnormal reaction of the patient, or of later complication, without mention of misadventure at the time of the procedure; E86.0 Dehydration; E87.6 Hypokalemia; E86.1 Hypovolemia
CPT/HCPCS: 36415; 71045-TC-FY; 74230-TC-FY; 75984-FY; 80048; 80053; 81003; 83735; 84100; 85025; 85027; 85610; 86850; 86900; 86901; 87040; 87086; 92611-GN; 93005; 93010; 97161-GP; 99285-25; C9803; J0131; J0475; J3480; U0003; U0005

== ENCOUNTER 2021-09-05 12:34 | Inpatient (IN) | payer OTHER, MEDICARE ==
[2021-09-05] MEDS ORDERED: ACETAMINOPHEN 1000 MG/100 ML VIAL IVPB ONE (14:25)
[2021-09-05] MEDS ORDERED: CEFTRIAXONE 1 GM in DEXTROSE 5%-WATER - 100 ML IVPB ONE (15:13)
[2021-09-05 16:03] LABS: BASO % 0.4 % (0-2.0); HEMATOCRIT 30.6 % (32.4-45.2); LYMPH % 2.2 % (8-40); MCHC 29.5 g/dl (32.0-36.0); MEAN CELL VOLUME 67.4 fl (80-96); MEAN PLT VOLUME 7.1 fl (7.5-11.1); MONO % 7.8 % (3.8-10.2); NEUT % 89.6 % (42.8-82.8); PLATELET COUNT 539 10^3/uL (134-434); RBC 4.54 M/mm3 (3.60-5.2); WHITE BLOOD COUNT 13.7 K/mm3 (4.0-10.0)
[2021-09-05 16:06] LABS: MCH 19.9 pg (25.7-33.7)
[2021-09-05 16:12] LABS: INR 1.1 (0.83-1.09); PROTHROMBIN TIME (PATIENT) 13.5 SEC (9.7-13.0)
[2021-09-05 16:15] LABS: ACTIVATED PTT 24.7 SECONDS (25.2-36.5)
[2021-09-05 16:23] LABS: CALCIUM 9.4 mg/dL (8.5-10.1)
[2021-09-05 16:24] LABS: ALBUMIN 2.6 g/dl (3.4-5.0); BLOOD UREA NITROGEN 20.6 mg/dL (7-18)
[2021-09-05 16:27] LABS: CREATININE 0.6 mg/dL (0.55-1.3)
[2021-09-05 16:29] LABS: BILIRUBIN,TOTAL 0.3 mg/dL (0.2-1); TOT PROT 9.3 g/dl (6.4-8.2)
[2021-09-05 16:33] LABS: ANISOCYTOSIS 2+; MACROCYTOSIS 1+; PLATELET ESTIMATE INCREASED
[2021-09-06] MEDS: DEXTROSE 5%-0.45% SALINE 1,000 ML IV SCH (03:40)
[2021-09-06] MEDS ORDERED: LISINOPRIL 5 MG TABLET PO SCH (10:00)
[2021-09-06 11:09] LABS: ALBUMIN 2.3 g/dl (3.4-5.0); CALCIUM 8.8 mg/dL (8.5-10.1)
[2021-09-06 11:10] LABS: BLOOD UREA NITROGEN 30.2 mg/dL (7-18)
[2021-09-06 11:12] LABS: CREATININE 0.7 mg/dL (0.55-1.3)
[2021-09-06 11:14] LABS: BILIRUBIN,TOTAL 0.3 mg/dL (0.2-1)
[2021-09-06 12:11] VITALS: BMI 12.9
[2021-09-06] MEDS ORDERED: cefTRIAXone SODIUM 1 GM VIAL ONE (12:44)
[2021-09-06] MEDS ORDERED: DEXTROSE 5%-WATER - 50 ML IVPB ONE (12:44)
[2021-09-06] MEDS: CEFTRIAXONE 1 GM in DEXTROSE 5%-WATER - 50 ML IVPB SCH (12:46)
[2021-09-06] MEDS: ENOXAPARIN NA (PORCINE) 40 MG/0.4 ML DISP.SYRIN SQ SCH (12:47)
[2021-09-06] MEDS ORDERED: FLU VACC QS2021-22(6MOS UP)/PF 60 MCG/0.5 ML SYRINGE IM ONE (13:15)
[2021-09-06] MEDS ORDERED: PNEUMOC 13-VAL CONJ-DIP CRM/PF 0.5 ML DISP.SYRIN IM ONE (13:15)
[2021-09-06] MEDS ORDERED: MIRTAZAPINE 15 MG TABLET (FP) PO SCH (22:00)
[2021-09-07] MEDS: DEXTROSE 5%-0.45% SALINE 1,000 ML IV SCH (04:25)
[2021-09-07] MEDS ORDERED: cefTRIAXone SODIUM 1 GM VIAL ONE (08:50)
[2021-09-07] MEDS ORDERED: DEXTROSE 5%-WATER - 50 ML IVPB ONE (08:50)
[2021-09-07 09:32] LABS: BASO % 0.6 % (0-2.0); EOS % 0.2 % (0-4.5); HEMATOCRIT 32.1 % (32.4-45.2); HEMOGLOBIN 9.6 GM/dL (10.7-15.3); LYMPH % 4.7 % (8-40); MCH 20.4 pg (25.7-33.7); MCHC 30.1 g/dl (32.0-36.0); MEAN CELL VOLUME 67.7 fl (80-96); MEAN PLT VOLUME 7.3 fl (7.5-11.1); MONO % 13.5 % (3.8-10.2); PLATELET COUNT 449 10^3/uL (134-434); RBC 4.73 M/mm3 (3.60-5.2); RDW 20.1 % (11.6-15.6); WHITE BLOOD COUNT 7.2 K/mm3 (4.0-10.0)
[2021-09-07 10:00] LABS: ALBUMIN 2.3 g/dl (3.4-5.0); BLOOD UREA NITROGEN 33.6 mg/dL (7-18); CALCIUM 8.6 mg/dL (8.5-10.1)
[2021-09-07 10:04] LABS: BILIRUBIN,TOTAL 0.2 mg/dL (0.2-1); CREATININE 0.7 mg/dL (0.55-1.3); TOT PROT 8.7 g/dl (6.4-8.2)
[2021-09-07] MEDS: CEFTRIAXONE 1 GM in DEXTROSE 5%-WATER - 50 ML IVPB SCH (10:50)
[2021-09-07] MEDS: ENOXAPARIN NA (PORCINE) 40 MG/0.4 ML DISP.SYRIN SQ SCH (10:51)
[2021-09-07 19:20] VITALS: BP 94/56; PULSE 112; TEMP 98.4
== END 2021-09-07 23:00 | disposition expired | DRG 388 ==
LOC: JER 12:34 → JERBED 18:09 → J8W 09-06 09:19
PROVIDERS: ADMIT Internal Medicine; ATTEND Internal Medicine
PROC: 0T2BX0Z Change Drainage Device in Bladder, External Approach (ICD-10-PCS; principal; 2021-09-06)
PROC: 0BH17EZ Insertion of Endotracheal Airway into Trachea, Via Natural or Artificial Opening (ICD-10-PCS; 2021-09-07)
PROC: 5A1935Z Respiratory Ventilation, Less than 24 Consecutive Hours (ICD-10-PCS; 2021-09-07)
DX: K56.699 Other intestinal obstruction unspecified as to partial versus complete obstruction (principal); E43 Unspecified severe protein-calorie malnutrition; R53.2 Functional quadriplegia; Z68.1 Body mass index [BMI] 19.9 or less, adult; N82.0 Vesicovaginal fistula; N13.30 Unspecified hydronephrosis; R64 Cachexia; K56.41 Fecal impaction; G35 Multiple sclerosis; N31.9 Neuromuscular dysfunction of bladder, unspecified; I46.9 Cardiac arrest, cause unspecified
CPT/HCPCS: 36415; 71045-TC-FY; 74018-TC-FY; 74176-TC; 74177-TC; 76775-TC; 80053; 85025; 85610; 85730; 86850; 86900; 86901; 87040; 90670; 90686; 93005; 93010; 99285-25; C9803; G0008; G0009; J0131; Q9967; U0003; U0005